=== PATIENT | female | born 1995 | race Caucasian/White ===

== ENCOUNTER 2024-12-09 09:43 | Outpatient (CLI) | payer OTHER, SELFPAY ==
--- OUTSIDE RECORDS SUMMARY | 2024-12-09 10:37 | XMS_ITS | Referral Summary ---
Author Organization [facility] Medical Office Building B Address [address] [place] [address] Care Team Providers Care Wheat Buyer Name Role Phone Unknown, Notinfile Primary Care Provider Unavail able Kasey Xiao MD Unavailable Allergies Active Allergy Reactions Criticality Noted Date Comments Erythromycin Unknown,Nausea only, Shortness of breath High 03/28/2017 Medications valACYclovir (VALTREX) 1 gram tablet 03/22/2023 Active desog-e.estradio L/e.estradioL (KARIVA) 0.15-0.02 mgx21 /0.01 mg x 5 per tablet Take 1 tablet by mouth daily 84 tablet 3 05/01/2023 Active Active Problems Problem Noted Date Diagnosed Date Cervical cancer screening 05/12/2023 Overview (05/12/2023): 05/01/23 - Pap negative Well woman exam with routine gynecological exam 05/01/2023 Assessment & Plan (05/01/2023 11:25 AM CDT): Pap smear performed. Recommend self-breast exam. A year long prescription for OCP was sent to her pharmacy. She declines any STD testing. Follow up 1 year. Chronic pain of left elbow 03/28/2017 Social History Tobacco Use Types Packs/Day Years Used Date Smoking Tobacco: Never Passive Smoke Exposure: Never Smokeless Tobacco: Never AUDIT-C Answer Date Recorded Q1: How often do you have a drink containing alc ohol? Monthly or less 05/01/2023 Q2: How many drinks containi ng alcohol do you have on a typical day when you are drinking? 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 Gender Identity Not on file Sexual Orientation Not on file Last Filed Vital Signs Vital Sign Reading Time Taken Comments Blood Pressure 96/62 05/01/2023 10:45 AM CDT Pulse 89 03/28/2017 2:06 PM CDT Temperature - - Respiratory Rate - - Oxygen Saturation - - Inhaled Oxygen Concentration - - Weight 67.1 kg (148 lb) 05/01/2023 10:45 AM CDT Height 167.6 cm (5' 6 ) 05/01/2023 10:45 AM CDT Body Mass Index 23.89 05/01/2023 10:45 AM CDT Plan of Treatment Not on file Procedures Procedure Name Priority Date/Time Associated Diagnosis Comments PAP WITH REFLEX TO HIGH RISK HPV Routine 05/01/2023 12:03 PM CDT Well woman exam with routine gynecological exam Special screening examination for human papillomavirus (HPV) Screening for malignant neoplasm of the cervix from Last 3 Months or Most Recently Relevant to Health Maintenance Results * Pap with reflex to High Risk HPV and Genotyping (Cytology Component) (05/01/2023 12:03 PM CDT) Thin prep (Pap test) 05/01/2023 12:03 PM CDT 05/04/2023 5:33 PM CDT Narrative PATHOLOGY [facility] - 05/10/2023 10:35 AM CDT [facility] results best viewed via link to PDF [address] [address] Tele: Michelle Terry MD - Packing Line Worker CYTOLOGY REPORT Note to Patients: This report may contain a detailed description of human tissue sent by a health care provider to the laboratory for pathologic evaluation. The content of this report is essential for diagnosis and may provide important critical findings. This information may be unfamiliar to patients to review without a medical professional present. It is advised that the patient review this report in the presence of a health care provider who can answer questions and explain the details. Patient Name: ROCIOELIZABETH Address: [address] [place] [address] Gender: F : 1995 (Age: 28) Service: Location: [facility] #: [id number] Patient Type: [facility] SPECIM[facility] Taken: 05/01/2023 Reported: 05/10/2023 Physician(s): Kasey Xiao M.D. FINAL DIAGNOSIS: SOURCE OF SPECIMEN - ThinPrep Pap w/ reflex HPV: STATEMENT OF ADEQUACY Source: Cervical/Endocervical - Satisfactory for interpretation - Endocervical /Transformation Zone component present - Case screened using computer assisted imaging technology GENERAL CATEGORIZATION: - Negative for intraepithelial lesion or malignancy INTERPRETATION: - Acute Inflammation jxm/05/10/2023 10:35NORA Connors (ASCP) Report Reviewed and Electronically Signed By NORA Connors (ASCP)Clerical Data Follow A; [id number] CLINICAL DIAGNOSIS AND HISTORY Last Menstrual Period: 04/12/2023 REPORT IMAGES AND/OR SCANNED DOCUMENTS ONLY VIEWABLE IN PDF FORMAT The Pap test is a screening test used to aid in the detection of cervical cancer and its precursors. It should not be the sole means by which malignant and premalignant lesions are diagnosed. Both false negative and false positive results may occur. It also has poor sensitivity for the detection of endometrial lesions and should not be used to evaluate suspected endometrial abnormalities. For these reasons it is most important to obtain Pap tests at regular intervals, as recommended by your physician or nurse practitioner. us Kasey Xiao MD LAB CYTOLOGY ORDERABLES Final Result PATHOLOGY [facility] Laboratory Receiving [address] [place], [place] [id number] from Last 3 Months or Most Recently Relevant to Health Maintenance Insurance [employer] [place] Address: [id number] [place] [address] [employer] [facility] [employer] Address: [facility] [address] [place] [address] Care Teams Wheat Buyer Relationship Specialty Start Date End Date Unknown, Notinfile PCP - General 03/24/17 Kasey Xiao MD [address] [place] [address] Consulting Physician Obstetrics and Gynecology 03/22/23
--- OUTSIDE RECORDS SUMMARY | 2024-12-09 10:37 | XMS_ITS | Clinical Summary ---
Author Organization [facility] Address [address] [place] [address] Care Team Providers Care Concrete Technician Name Role Phone Unavailable Primary Care Provider Unavailabl e Source Comments [facility] [employer],non-owned Affiliates and Associated Physician Practices is amultiple site organization consisting of ambulatory clinics and hospital sitesin [place], [place], [place] and [place]. This disclosure is being madepursuant to the Care Everywhere program and may not contain all information available regarding this patient. Last updated 18.[facility] Allergies Active Allergy Reactions Criticality Noted Date Comments Erythromycin Unknown 06/04/2021 Social History Tobacco Use Types Packs/Day Years Used Date Smoking Tobacco: Never Assessed Sex and Gender Information Value Date Recorded Sex Assigned at Not on file Gender Identity Not on file Sexual Orientation Not on file Plan of Treatment Health Maintenance Due Date Last Done Comments PAP SMEAR 1995 HIV SCREENING 2009 HEPATITIS C SCREENING 04/23/2012 DTAP/TDAP/TD VACCINES (1 - Tdap) 2013 HEPATITIS B VACCINE (1 of 3 - 19+ 3-dose series) 2013 COVID-19 VACCINE (2 - 2023- season) 2024 02/16/2021 INFLUENZA VACCINE (#1) 2024 , 05/27/2019, 06/27/2018, Additional history exists DEPRESSION SCREENING 09/11/2024 ZOSTER VACCINE (1 of 2) 2044 HIB VACCINE Aged Out No longer eligi ble based on patient's age to complete this topic HPV VACCINE Aged Out No longer eligi ble based on patient's age to complete this topic MENINGOCOCCAL (Group B) VACCINE SHARED DECISION-MAKING Aged Out No longer eligible based on patient's age to complete this topic MENINGOCOCCAL GROUPS A/C/Y/W VACCINE Aged Out No longer eligible based on patient's age to complete this topic PNEUMOCOCCAL VACCINE Aged Out No long er eligible based on patient's age to complete this topic
--- OUTSIDE RECORDS SUMMARY | 2024-12-09 10:37 | XMS_ITS | Clinical Summary ---
Author Organization [facility] Address [address] [place] [address] Phone Care Team Providers Care Calender Inspector Name Role Phone AlconElvin perez Primary Care Provider [phone] Allergies Active Allergy Reactions Criticality Noted Date Comments Erythromycin Nausea and Vomiting Low 03/28/2017 Medications valACYclovir (Valtrex) 1 gram tablet Take 1 Tablet (1,000 mg) by mouth 2 times daily. 30 Tablet 3 05/04/2022 Active Desogestrel-Ethi nyl estradiol (Viorele, 28,) 0.15-0.02 mgx21 /0.01 mg x 5 tablet TAKE 1 TABLET BY MOUTH DAILY 84 Tablet 03/22/2023 Active Active Problems Problem Noted Date Diagnosed Date ADD (attention deficit disorder) Genital herpes Immunizations Immunization Administration Dates Next Due Influenza Seasonal Unspecifi ed Formulation IM 06/02/2020,05/27/2019,06/27/2018 Family History Medical History Relation Name Comments Diabetes Father Hypertension Father Stroke Father Breast Cancer Mother Premenopausal Cancer Paternal Grandfather Lung Alzheimer's Disease Paternal Grandmother Parkinson's Disease Paternal Grandmother Healthy Sister Ovarian Cancer Neg Hx Relation Name Status Comments Father Alive Mother Alive Paternal Grandfather Paternal Grandmother Sister Alive Social History Tobacco Use Types Packs/Day Years Used Date Smoking Tobacco: Never Smokeless Tobacco: Never Tobacco Cessation:Counseling Given: Not Answered Alcohol Use Standard Drinks/Week Comments Yes 0 (1 standard drink = 0.6 oz pur e alcohol) rare Comments No Sex and Gender Information Value Date Recorded Sex Assigned at Not on file Legal Sex Female 1:19 PM RESEARCHER Gender Identity Not on file Sexual Orientation Not on file Last Filed Vital Signs Vital Sign Reading Time Taken Comments Blood Pressure 114/76 05/04/2022 9:22 AM CDT Pulse 101 01/21/2019 1:52 PM CDT Temperature 36.7 C (98.1 F) 01/21/2019 1:52 PM CDT Respiratory Rate 18 01/21/2019 1:52 PM CDT Oxygen Saturation 99% 01/21/2019 1:52 PM CDT Inhaled Oxygen Concentration - - Weight 66.2 kg (146 lb) 05/04/2022 9:22 AM CDT Height 167.6 cm (5' 6 ) 05/04/2022 9:22 AM CDT Body Mass Index 23.57 05/04/2022 9:22 AM CDT Plan of Treatment Health Maintenance Due Date Last Done Comments DTAP/TDAP/TD VACCINES (1 - Tdap) 2013 HEPATITIS B VACCINES (1 of 3 - 19+ 3-dose series) 2013 INFLUENZA VACCINE (#1) 2024 , 05/27/2019, 06/27/2018 HPV/Cotest (30-65) 2024 Preventative Visit- Commercial 09/11/2024 05/04/2022, 12/30/2020, 10/03/2019, Additional history exists CERVICAL CANCER SCREENING 05/04/2025 PAP SMEAR 05/04/2025 05/04/2022, 09/12, 09/27/2018 PAP SMEAR 05/04/2025 05/04/2022, 09/12, 09/27/2018 HPV VACCINES Completed 03/11/2011 (Prev iously completed), 11/09/2010 (Previously completed), 09/11/2010 (Previously completed) PNEUMOCOCCAL VACCINE 0-49 YEARS Aged Out No longer eligible based on patient's age to complete this topic Procedures Procedure Name Priority Date/Time Associated Diagnosis Comments CERV/VAG CYTO AGE BASED SCREEN PAP Routine 05/04/2022 1:01 PM CDT Well woman exam with routine gynecological exam from Last 3 Months or Most Recently Relevant to Health Maintenance Results * CERV/VAG CYTO AGE BASED SCREEN PAP (05/04/2022 1:01 PM CDT) COMMENT (PAP): Anaid Trending TasteSasha Oro Comment: This order for age-based cervical cancer and STI screening follows ACOG guidelines(PB 168, 140, ODD306). See individual assays for performing site location. CLINICAL INFORMATION Anaid Oro Comment:Information not prov ided LAST MENSTRUAL PERIOD Anaid Oro Comment:INFORMATION NOT PROV IDED PREV PAP: Anaid Oro Comment:INFORMATION NOT PROV IDED PREV BX: Anaid Oro Comment:INFORMATION NOT PROV IDED SOURCE Anaid Oro Comment:Endocervix ADEQUACY: Anaid Oro Comment: Satisfactory for evaluation. Endocervical/transformation zone component present. Age and/or menstrual status not provided PAP INTERP Anaid Oro Comment:Negative for intraep ithelial lesion or malignancy. COMMENT (PAP TEST) Q uest Bal Oro Comment: This Pap test has been evaluated with computer assisted technology. SOFTWARE QUALITY TESTER: Frederick Oro Comment: NORA CRESPO(ASCP) CT Screening location: [facility] Administration [place] [address] Bal Oro Comment: EXPLANATORY NOTE: The Pap is a screening test for cervical cancer. It is not a diagnostic test and is subject to false negative and false positive results. It is most reliable when a satisfactory sample, regularly obtained, is submitted with relevant clinical findings and history, and when the Pap result is evaluated along with historic and current clinical information. Test Performed at: [facility] [address] [address] [place] [address] Diana Gaston Genital SWAB OF ENDOCERVIX / Unknown 05/04/2022 1:01 PM CDT 05/04/2022 8:59 PM CDT July Jaffe DO PATHOLOGY/CYTOLOGY ORDERABLES Fi nal Result [facility] [phone] [facility] [place] [address] [address] [place] [address] from Last 3 Months or Most Recently Relevant to Health Maintenance Insurance [employer] OPEN CHOICE PPO BLUE ACCESS RX MEDIMPACT Member Subscriber Plan / Payer (Ef fective for All Dates) Name:Elizabeth Bond Relation to Subscriber:Self Name:Elizabeth Bond Payer ID:Not on file Group ID:[id number] Type:RX Commercial Address: [place] RX MEDIMPACT Member Subscriber Plan / Payer (Ef fective for All Dates) Name:Elizabeth Bond Relation to Subscriber:Self Name:Elizabeth Bond Payer ID:Not on file Group ID:[id number] Type:RX Commercial Address: [place] Care Teams Calender Inspector Relationship Specialty Start Date End Date Elvin Reyes DO [address] [facility] [address] [place] [address] PCP - General Internal Medicine 10/15/18
--- OUTSIDE RECORDS SUMMARY | 2024-12-09 10:37 | XMS_ITS | Clinical Summary ---
Author Organization [facility] Medical Office Building B Address [address] [place] [address] Care Team Providers Care Chemical Engineering Professor Name Role Phone Unknown, Notinfile Primary Care Provider Unavail able Kasey Xiao MD Unavailable [phone] Allergies Active Allergy Reactions Criticality Noted Date [...] year. 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 Gender Identity Not on file Sexual Orientation Not on file Obstetrics History Para Term AB IAB SAB Ectopic Multiple Livin g Live Births 0 0 0 0 0 0 0 0 0 0 0 Last Filed Vital Signs Vital Sign Reading [...] 05/01/2023 10:45 AM CDT Plan of Treatment Health Maintenance Due Date Last Done Comments Depression Screening 1995 Hepatitis C Screening 1995 DTaP/Tdap/Td Vaccine (1 - Tdap) 2005 Varicella Vaccines (1 of 2 - 13+ 2-dose series) 2007 Hepatitis B Screening 2012 Cervical Cancer Screening 05/01/2024 05/01/2023, Regular Well Visit/Exam 18-64 05/01/2024 05/01/2023 Covid-19 Vaccine (2 - season) 2024 02/16/2021 Influenza Vaccine (#1) 2024 2, 05/27/2021, 06/02/2020, Additional history exists HPV Vaccines Aged Out No longer eligi ble based on patient's age to complete this topic Pneumococcal vaccine <65 Aged Out No longer eligible based on [...] CDT 05/04/2023 5:33 PM CDT Narrative PATHOLOGY [facility] - 05/10/2023 10:35 AM CDT EPIC results best viewed via link to PDF [address] [address] Tele: Michelle Terry MD - Convenience Store Clerk CYTOLOGY REPORT Note to Patients: This report [...] questions and explain the details. Patient Name: ELIZABETH CHRIS Address: [address] [place] [address] Gender: F : 1995 (Age: 28) Service: Location: N : [id number] [facility] #: [id number] Patient Type: [facility] SPECIMEN Taken: 05/01/2023 Reported: 05/10/2023 Physician(s): Kasey [...] recommended by your physician or nurse practitioner. Kasey Xiao MD LAB CYTOLOGY ORDERABLES Final Result PATHOLOGY [facility] Laboratory Receiving [address] [place] [address] from Last 3 Months or Most Recently Relevant to Health Maintenance Insurance [facility] CIGNA Care Teams Chemical Engineering Professor Relationship Specialty Start Date End Date Unknown, Notinfile PCP - General 03/24/17 Kasey Xiao MD [address] [facility] [address] [place] [address] Consulting Physician Obstetrics and Gynecology 03/22/23
--- OUTSIDE RECORDS SUMMARY | 2024-12-09 10:37 | XMS_ITS | Encounter Summary ---
Author Organization [employer] Address [address] [place] [address] Care Team Providers Care Fisheries Manager Name Role Phone AlconElvin perez Primary Care Provider [phone] Encounter Details Date Type Department Care Team (Late st Contact Info) Description 11/17/2017 Lab Requisition [facility] [address] [facility] [address] [place] [address] [place] [address] [facility] [address] [place] [phone] Social History Tobacco Use Types Packs/Day Years Used Date Smoking Tobacco: Never Assessed Comments Unknown Sex and Gender Information Value Date Recorded Sex Assigned at Not on file Legal Sex Female 1:19 PM SUPERVISOR ORDER TAKERS Gender Identity Not on file Sexual Orientation Not on file documented as of this encounter Plan of Treatment Not on file documented as of this encounter Procedures Procedure Name Priority Date/Time Associated Diagnosis Comments HEPATITIS B SURFACE AB, QUANT Routine 11/17/2017 1:30 PM SUPERVISOR ORDER TAKERS VARICELLA ZOSTER IGG Routine 11/17/2017 1:30 PM SUPERVISOR ORDER TAKERS documented in this encounter Results * (ABNORMAL) HEPATITIS B SURFACE AB, QUANT (11/17/2017 1:30 PM SUPERVISOR ORDER TAKERS) HEPATITIS B SURF AB,QN <4.0 mlU/mL 11/17/2017 9:55 PM SUPERVISOR ORDER TAKERS [facility] HEPATITIS B SURFACE AB INTERP Non-reacti ve(A) See Interp 11/17/2017 9:55 PM SUPERVISOR ORDER TAKERS [facility] Blood Collection / Unknown 11/17/2017 1:30 PM SUPERVISOR ORDER TAKERS 11/17/2017 8:26 PM SUPERVISOR ORDER TAKERS Narrative [facility] - 11/17/2017 9:55 PM SUPERVISOR ORDER TAKERS Patient does not have immunity to Hepatitis B virus. This assay is used to determine immune status to Hepatitis B as greater than or equal to 10 mIU/mL as per CDC guidelines (MMWR:vol 55: RR-16, 2006). Jun Gloria MD CHEMISTRY ORDERABLES Final R esult [facility] CLIA# [id number] [address] [place] [address] * VARICELLA ZOSTER IGG (11/17/2017 1:30 PM SUPERVISOR ORDER TAKERS) VZV IGG Positive 11/21/2017 2:35 PM CDT [facility] Comment: Results suggest response to immunization or prior exposure to the virus. REFERENCE VALUE Vaccinated: Positive (>=1.1 AI) Unvaccinated: Negative (<=0.8 AI) VARICELLA IGG INDEX 2.4 11/21/2017 2:35 PM CDT [facility] Comment: Test Performed by: [facility] [address] [place] [address] Blood Collection / Unknown 11/17/2017 1:30 PM SUPERVISOR ORDER TAKERS 11/17/2017 8:26 PM SUPERVISOR ORDER TAKERS Jun Gloria MD CHEMISTRY ORDERABLES Final R esult [facility] documented in this encounter Visit Diagnoses Not on filedocumented in this encounter Care Teams Fisheries Manager Relationship Specialty Start Date End Date Elvin Reyes DO [address] [place] [address] [place], [place] [id number] PCP - General Internal Medicine 10/15/18 documented as of this encounter
[2024-12-09 10:46] LABS: Beta HCG Quantitative 5.95 mIU/ML
== END 2024-12-09 09:44 | disposition home or self-care (01) ==
LOC: ANHLAB 09:44
PROVIDERS: Visit Provider Obstetrics & Gynecology
DX: N92.6 Irregular menstruation, unspecified (principal)
CPT/HCPCS: 36415; 84702

== ENCOUNTER 2024-12-11 07:41 | Outpatient (CLI) | payer OTHER, SELFPAY ==
--- OUTSIDE RECORDS SUMMARY | 2024-12-11 07:45 | XMS_ITS | Clinical Summary ---
Author Organization [facility] Address [address] [place] [address] Phone Care Team Providers Care Slot Editor Name Role Phone AlconElvin perez Primary Care Provider [phone] Allergies Active Allergy Reactions Criticality Noted Date [...] on file Legal Sex Female 1:19 PM TANKAGE SUPERVISOR Gender Identity Not on file Sexual Orientation [...] (05/04/2022 1:01 PM CDT) COMMENT (PAP): Anaid TrunkbowSasha Oro Comment: This order for age-based cervical cancer and STI screening follows ACOG guidelines(PB 168, 140, MIS222). See individual assays for performing site location. [...] has been evaluated with computer assisted technology. POWER DISTRIBUTION ENGINEER: Frederick Oro Comment: NORA CRESPO(ASCP) CT Screening location: [facility] Administration [place] [address] [address] Bal Oro Comment: [...] and current clinical information. Test Performed at: [facility] [address] [address] [place] [address] Diana Gaston Genital SWAB OF ENDOCERVIX / Unknown 05/04/2022 1:01 PM CDT 05/04/2022 8:59 PM CDT July Jaffe DO PATHOLOGY/CYTOLOGY ORDERABLES Fi nal Result [facility] [phone] [facility] [address] [address] [place] [address] from Last 3 Months or Most Recently [...] Type:RX Commercial Address: [place] Care Teams Slot Editor Relationship Specialty Start Date End Date Elvin Reyes DO [address] [facility] [address] [place] [address] PCP - General Internal Medicine 10/15/18
--- OUTSIDE RECORDS SUMMARY | 2024-12-11 07:45 | XMS_ITS | Clinical Summary ---
Author Organization [facility] Address [address] [place] [address] Care Team Providers Care Manual Arts Therapy Teacher Name Role Phone Unavailable Primary Care Provider Unavailabl e Source Comments [facility],non-owned Affiliates and Associated Physician Practices is amultiple site organization consisting of ambulatory clinics and hospital sitesin [place], [place], [place] and [place]. This disclosure is being madepursuant to the Care Everywhere program and may not contain all information available regarding this patient. Last updated 18.[facility] Allergies Active Allergy Reactions Criticality Noted Date [...]
--- OUTSIDE RECORDS SUMMARY | 2024-12-11 07:45 | XMS_ITS | Referral Summary ---
Author Organization [facility] Medical Office Building B Address [address] [place] [address] Care Team Providers Care Assistant Media Buyer Name Role Phone Unknown, Notinfile Primary Care Provider Unavail able Kasey Xiao MD Unavailable [phone] Allergies Active Allergy Reactions Criticality Noted [...] on file Legal Sex Female 9:[address] MECHANICAL ENGINEER Gender Identity Not on file Sexual Orientation [...] CDT 05/04/2023 5:33 PM CDT Narrative PATHOLOGY [facility] - 05/10/2023 10:35 AM CDT [facility] results best viewed via link to PDF [address] [address] Tele: Michelle Terry MD - Payment Analyst CYTOLOGY REPORT Note to Patients: This report [...] explain the details. Patient Name: ROCIOELIZABETH Address: [address] [place] [address] Gender: F : 1995 (Age: 28) Service: Location: [facility] #: [id number] Patient Type: [facility] SPECIMEN Taken: 05/01/2023 Reported: 05/10/2023 Physician(s): Kasey [...] MD LAB CYTOLOGY ORDERABLES Final Result PATHOLOGY [facility] Laboratory Receiving [address] [place], [place] [phone] from Last 3 Months or Most Recently Relevant to Health Maintenance Insurance [employer] Address: [address] [place] [address] [employer] Care Teams Assistant Media Buyer Relationship Specialty Start Date End Date Unknown, Notinfile PCP - General 03/24/17 Kasey Xiao MD [address] [place] [address] Consulting Physician Obstetrics and Gynecology 03/22/23
--- OUTSIDE RECORDS SUMMARY | 2024-12-11 07:45 | XMS_ITS | Encounter Summary ---
Author Organization [employer] Address [address] [place] [address] Care Team Providers Care Double Bottom Driver Name Role Phone AlconElvin perez Primary Care Provider [phone] Encounter Details Date Type Department Care Team (Late st Contact Info) Description 11/17/2017 Lab Requisition [facility] Laboratory Services S [facility] [address] [place] [address] [place] [address] [facility] [address] [place] [phone] Social History Tobacco Use Types Packs/Day Years Used Date Smoking Tobacco: Never Assessed Comments Unknown Sex and Gender Information Value Date Recorded Sex Assigned at Not on file Legal Sex Female 1:19 PM MEDIA REPORTER Gender Identity Not on file Sexual Orientation Not on file documented as of this encounter Plan of Treatment Not on file documented as of this encounter Procedures Procedure Name Priority Date/Time Associated Diagnosis Comments HEPATITIS B SURFACE AB, QUANT Routine 11/17/2017 1:30 PM MEDIA REPORTER VARICELLA ZOSTER IGG Routine 11/17/2017 1:30 PM MEDIA REPORTER documented in this encounter Results * (ABNORMAL) HEPATITIS B SURFACE AB, QUANT (11/17/2017 1:30 PM MEDIA REPORTER) HEPATITIS B SURF AB,QN <4.0 mlU/mL 11/17/2017 9:55 PM MEDIA REPORTER [facility] [employer] [facility] HEPATITIS B SURFACE AB INTERP Non-reacti ve(A) See Interp 11/17/2017 9:55 PM MEDIA REPORTER [facility] Blood Collection / Unknown 11/17/2017 1:30 PM MEDIA REPORTER 11/17/2017 8:26 PM MEDIA REPORTER Narrative [facility] - 11/17/2017 9:55 PM MEDIA REPORTER Patient does not have immunity to Hepatitis B virus. This assay is used to determine immune status to Hepatitis B as greater than or equal to 10 mIU/mL as per CDC guidelines (MMWR:vol 55: RR-16, 2006). Jun Gloria MD CHEMISTRY ORDERABLES Final R esult [facility] CLIA# [id number] [address] [place] [address] * VARICELLA ZOSTER IGG (11/17/2017 1:30 PM MEDIA REPORTER) VZV IGG Positive 11/21/2017 2:35 PM CDT [facility] Comment: Results suggest response to immunization or prior exposure to the virus. REFERENCE VALUE Vaccinated: Positive (>=1.1 AI) Unvaccinated: Negative (<=0.8 AI) VARICELLA IGG INDEX 2.4 11/21/2017 2:35 PM CDT [facility] Comment: Test Performed by: [facility] [address] [place] [address] Blood Collection / Unknown 11/17/2017 1:30 PM MEDIA REPORTER 11/17/2017 8:26 PM MEDIA REPORTER Jun Gloria MD CHEMISTRY ORDERABLES Final R esult [facility] documented in this encounter Visit Diagnoses Not on filedocumented in this encounter Care Teams Double Bottom Driver Relationship Specialty Start Date End Date Elvin Reyes DO [address] [place], [place] [phone] PCP - General Internal Medicine 10/15/18 documented as of this encounter
--- OUTSIDE RECORDS SUMMARY | 2024-12-11 07:45 | XMS_ITS | Clinical Summary ---
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 Patient Name: ELIZABETH CHRIS Address: [address] [place] [address] Gender: F : 1995 (Age: 28) Service: Location: N : [id number] [facility] #: [id number] Patient Type: [facility] Taken: 05/01/2023 Reported: 05/10/2023 Physician(s): Kasey [...] MD LAB CYTOLOGY ORDERABLES Final Result PATHOLOGY [facility] Laboratory Receiving [address] [place] [address] from Last 3 Months or Most Recently Relevant to Health Maintenance Insurance [facility] [employer] HE[employer] PLANS Address: [facility] [address] [place] [address] [employer] [facility] Address: [facility] [address] [place] [address] Care Teams Internal Carver Relationship Specialty Start Date End Date Unknown, Notinfile PCP - General 03/24/17 Kasey Xiao MD [address] [facility] [address] [place] [address] Consulting Physician Obstetrics and Gynecology 03/22/23
[2024-12-11 08:36] LABS: Beta HCG Quantitative < 2.39 mIU/ML
== END 2024-12-11 07:42 | disposition home or self-care (01) ==
LOC: ANHLAB 07:42
PROVIDERS: Visit Provider Obstetrics & Gynecology
DX: N94.89 Other specified conditions associated with female genital organs and menstrual cycle (principal)
CPT/HCPCS: 36415; 84702

== ENCOUNTER 2025-02-06 07:39 | Outpatient (CLI) | payer OTHER, SELFPAY ==
--- OUTSIDE RECORDS SUMMARY | 2025-02-06 07:42 | XMS_ITS | Referral Summary ---
Author Organization [facility] Medical Office Building B Address [address] [place] [address] Care Team Providers Care Operations Accountant Name Role Phone Unknown, Notinfile Primary Care [...] on file Legal Sex Female 9:08 AM AUDIT DIRECTOR Gender Identity Not on file Sexual Orientation Not on file Last Filed Vital Signs Vital Sign Reading Time Taken Comments Blood Pressure 96/62 05/01/2023 10:45 AM CDT Pulse 89 03/28/2017 2:06 PM CDT Temperature - - Respiratory Rate - - Oxygen Saturation - - Inhaled Oxygen Concentration - - Weight 67.1 kg (148 lb) 05/01/2023 10:45 AM CDT Height 167.6 cm (5' 6) 05/01/2023 10:45 AM CDT Body Mass Index [...] CDT 05/04/2023 5:33 PM CDT Narrative PATHOLOGY [facility] - 05/10/2023 10:35 AM CDT [facility] results best viewed via link to PDF [address] [address] Tele: Michelle Terry MD - Claims Adjudicator CYTOLOGY REPORT Note to Patients: This report [...] explain the details. Patient Name: ROCIOELIZABETH Address: [address] [place] [address] Gender: F : 1995 (Age: 28) Service: Location: [facility] #: [id number] Patient Type: [facility] SPECIMEN Taken: 05/01/2023 Reported: 05/10/2023 Physician(s): Kasey [...] MD LAB CYTOLOGY ORDERABLES Final Result PATHOLOGY [facility] Laboratory Receiving [address] [place], [place] [phone] from Last 3 Months or Most Recently Relevant to Health Maintenance Insurance [employer] [facility] [employer] [employer] [place] Address: [address] [place] [address] [facility] [employer] PL[employer] Address: [facility] [address] [place] [address] Care Teams Operations Accountant Relationship Specialty Start Date End Date Unknown, Notinfile PCP - General 03/24/17 Kasey Xiao MD [address] [place] [address] Consulting Physician Obstetrics and Gynecology 03/22/23
--- OUTSIDE RECORDS SUMMARY | 2025-02-06 07:42 | XMS_ITS | Clinical Summary ---
Author Organization [facility] Medical Office Building B Address [address] [place] [address] Care Team Providers Care Restaurant Attendant Name Role Phone Unknown, Notinfile Primary Care Provider Unavail able Kasey Xiao MD Unavailable [phone] Allergies Active Allergy Reactions Criticality Noted [...] ADENOIDECTOMY Medical History Medical History Date Comments [place] teeth extracted 2010 Family History Medical History [...] on file Legal Sex Female 9:08 AM CONSULTING SERVICES ASSOCIATE Gender Identity Not on file Sexual Orientation [...] CDT 05/04/2023 5:33 PM CDT Narrative PATHOLOGY [facility] - 05/10/2023 10:35 AM CDT EPIC results best viewed via link to PDF [address] [address] Tele: Michelle Terry MD - Group Billing Coordinator CYTOLOGY REPORT Note to Patients: This report [...] the details. Patient Name: ELIZABETH CHRIS Address: [address] [place] [address] Gender: F : 1995 (Age: 28) Service: Location: N : [id number] [facility] #: [id number] Patient Type: [facility] [place] Taken: 05/01/2023 Reported: 05/10/2023 Physician(s): Kasey [...] MD LAB CYTOLOGY ORDERABLES Final Result PATHOLOGY [facility] Laboratory Receiving [address] [place] [address] from Last 3 Months or Most Recently Relevant to Health Maintenance Insurance [facility] EMPL[employer]EE HEALTH PLANS Address[facility] [address] [place] [address] [employer] [facility] [employer] Address: [facility] [address] [place] [address] Care Teams Restaurant Attendant Relationship Specialty Start Date End Date Unknown, Notinfile PCP - General 03/24/17 Kasey Xiao MD [address] [facility] [address] [place] [address] Consulting Physician Obstetrics and Gynecology 03/22/23
--- OUTSIDE RECORDS SUMMARY | 2025-02-06 07:42 | XMS_ITS | Encounter Summary ---
Author Organization [employer] Address [address] [place] [address] Care Team Providers Care All Terrain Vehicle Racer Name Role Phone AlconElvin perez Primary Care Provider [phone] Encounter Details Date Type Department Care Team (Late st Contact Info) Description 11/17/2017 Lab Requisition [facility] Laboratory Services S [facility] [address] [place] [address] [place] [address] [facility] [address] [place] [address] Social History Tobacco Use Types Packs/Day Years Used Date Smoking Tobacco: Never Assessed Comments Unknown Sex and Gender Information Value Date Recorded Sex Assigned at Not on file Legal Sex Female 1:19 PM PANAMA HAT BLOCKER Gender Identity Not on file Sexual Orientation Not on file documented as of this encounter Plan of Treatment Not on file documented as of this encounter Procedures Procedure Name Priority Date/Time Associated Diagnosis Comments HEPATITIS B SURFACE AB, QUANT Routine 11/17/2017 1:30 PM PANAMA HAT BLOCKER VARICELLA ZOSTER IGG Routine 11/17/2017 1:30 PM PANAMA HAT BLOCKER documented in this encounter Results * (ABNORMAL) HEPATITIS B SURFACE AB, QUANT (11/17/2017 1:30 PM PANAMA HAT BLOCKER) HEPATITIS B SURF AB,QN <4.0 mlU/mL 11/17/2017 9:55 PM PANAMA HAT BLOCKER [facility] [employer] [facility] HEPATITIS B SURFACE AB INTERP Non-reacti ve(A) See Interp 11/17/2017 9:55 PM PANAMA HAT BLOCKER [facility] Blood Collection / Unknown 11/17/2017 1:30 PM PANAMA HAT BLOCKER 11/17/2017 8:26 PM PANAMA HAT BLOCKER Narrative [facility] - 11/17/2017 9:55 PM PANAMA HAT BLOCKER Patient does not have immunity to Hepatitis B virus. This assay is used to determine immune status to Hepatitis B as greater than or equal to 10 mIU/mL as per CDC guidelines (MMWR:vol 55: RR-16, 2006). Jun Gloria MD CHEMISTRY ORDERABLES Final R esult [facility] CLIA# [id number] [address] [place] [address] * VARICELLA ZOSTER IGG (11/17/2017 1:30 PM PANAMA HAT BLOCKER) VZV IGG Positive 11/21/2017 2:35 PM CDT [facility] Comment: Results suggest response to immunization or prior exposure to the virus. REFERENCE VALUE Vaccinated: Positive (>=1.1 AI) Unvaccinated: Negative (<=0.8 AI) VARICELLA IGG INDEX 2.4 11/21/2017 2:35 PM CDT [facility] Comment: Test Performed by: [facility] [address] [place] [address] Blood Collection / Unknown 11/17/2017 1:30 PM PANAMA HAT BLOCKER 11/17/2017 8:26 PM PANAMA HAT BLOCKER Jun Gloria MD CHEMISTRY ORDERABLES Final R esult [facility] documented in this encounter Visit Diagnoses Not on filedocumented in this encounter Care Teams All Terrain Vehicle Racer Relationship Specialty Start Date End Date Elvin Reyes DO [address] [place] [address] [place], [place] [phone] PCP - General Internal Medicine 10/15/18 documented as of this encounter
--- OUTSIDE RECORDS SUMMARY | 2025-02-06 07:42 | XMS_ITS | Clinical Summary ---
Author Organization [facility] [employer] Address [address] [place] [address] Care Team Providers Care Supervisor Slate Splitting Name Role Phone Unavailable Primary Care Provider Unavailabl e Source Comments [facility] [employer],non-owned Affiliates and Associated Physician Practices is amultiple site organization consisting of ambulatory clinics and hospital sitesin [place], [place], [place] and [place]. This disclosure is being madepursuant to the Care Everywhere program and may not contain all information available regarding this patient. Last updated 18.[facility] [employer] Allergies Active Allergy Reactions Criticality Noted Date Comments Erythromycin Unknown 06/04/2021 Social History Tobacco Use Types Packs/Day Years Used Date Smoking Tobacco: Never Assessed Comments Unknown Sex and Gender Information Value Date Recorded Sex Assigned at Not on file Legal Sex Female 8:58 AM CDT Gender Identity Not on file Sexual Orientation Not on file Plan of Treatment Health Maintenance Due Date Last Done Comments HIV SCREENING 2009 HEPATITIS C SCREENING 04/23/2012 DTAP/TDAP/TD VACCINES (1 - Tdap) 2013 HEPATITIS B VACCINE (1 of 3 - 19+ 3-dose series) 2013 COVID-19 VACCINE (2 - 2023- season) 2024 02/16/2021 DEPRESSION SCREENING 09/11/2024 INFLUENZA VACCINE (Season Ended) 2025 05/27/2021, 05/27/2019, 06/27/2018, Additional history exists ZOSTER VACCINE (1 of 2) 2044 HIB [...] on patient's age to complete this topic Insurance [facility] Address: [facility] [id number] [place] [address]
--- OUTSIDE RECORDS SUMMARY | 2025-02-06 07:42 | XMS_ITS | Clinical Summary ---
Author Organization [facility] Address [address] [place] [address] Phone Care Team Providers Care Curriculum Developer Name Role Phone AlconElvin perez Primary Care Provider [phone] Allergies Active Allergy Reactions Criticality Noted Date [...] on file Legal Sex Female 1:19 PM FENCE LABORER Gender Identity Not on file Sexual Orientation [...] 9:22 AM CDT Height 167.6 cm (5' 6) 05/04/2022 9:22 AM CDT Body Mass Index 23.57 05/04/2022 9:22 AM CDT Plan of Treatment Health Maintenance Due Date Last Done Comments DTAP/TDAP/TD VACCINES (1 - Tdap) 2013 HEPATITIS B VACCINES (1 of 3 - 19+ 3-dose series) 2013 HPV/Cotest (21-29) 2015 INFLUENZA VACCINE (#1) 2024 0, 05/27/2019, 06/27/2018 HPV/Cotest (30-65) 2024 Preventative Visit- Commercial 09/11/2024 0 05/04/2022, 12/30/2020, 10/03/2019, Additional history exists CERVICAL CANCER SCREENING 05/04/2025 PAP SMEAR 05/04/2025 05/04/2022, 09/12, 09/27/2018 HPV VACCINES Completed 03/11/2011 (Prev iously completed), 11/09/2010 (Previously completed), 09/11/2010 (Previously completed) Procedures Procedure Name Priority Date/Time Associated Diagnosis Comments CERV/VAG CYTO AGE BASED SCREEN PAP Routine 05/04/2022 1:01 PM CDT Well woman exam with routine gynecological exam from Last 3 Months or Most Recently Relevant to Health Maintenance Results * CERV/VAG CYTO AGE BASED SCREEN PAP (05/04/2022 1:01 PM CDT) COMMENT (PAP): [employer]asha Oro Comment: This order for age-based cervical cancer and STI screening follows ACOG guidelines(PB 168, 140, LTC334). See individual assays for performing site location. [...] has been evaluated with computer assisted technology. CHILDREN'S ENTERTAINER: Frederick Oro Comment: [place], CT(ASCP) CT Screening location: [facility] Administration [place] [address] [address] [facility] Comment: [...] and current clinical information. Test Performed at: [place] [address] [address] [place] [address] Lauryn-Radha Thi Vo Genital SWAB OF ENDOCERVIX / Unknown 05/04/2022 1:01 PM CDT 05/04/2022 8:59 PM CDT us July Jaffe DO PATHOLOGY/CYTOLOGY ORDERABLES Fi nal Result [facility] [phone] [place] [address] [address] [place] [address] from Last 3 Months or Most Recently Relevant to Health Maintenance Insurance [employer] OPEN CHOICE PPO BLUE ACCESS RX MEDIMPACT Member Subscriber Plan / Payer (Ef fective for All Dates) Name:Elizabeth Bond Relation to Subscriber:Self Name:Elizabeth Bond Payer ID:Not on file Group ID:[id number] Type:RX Commercial Address: [place] RX MEDIMPACT Member Subscriber Plan / Payer (Ef fective for All Dates) Name:DerekCyndi limatheresa Rae Relation to Subscriber:Self Name:Elizabteh Bond Payer ID:Not on file Group ID:[id number] Type:RX Commercial Address: [place] Care Teams Curriculum Developer Relationship Specialty Start Date End Date Elvin Reyes DO [address] [facility] [address] [place] [phone] PCP - General Internal Medicine 10/15/18
[2025-02-06 09:55] LABS: Beta HCG Quantitative 8.21 mIU/ML
== END 2025-02-06 07:40 | disposition home or self-care (01) ==
LOC: ANHLAB 07:40
PROVIDERS: Visit Provider Obstetrics & Gynecology
DX: N91.2 Amenorrhea, unspecified (principal)
CPT/HCPCS: 36415; 84702

== ENCOUNTER 2025-02-10 06:59 | Outpatient (CLI) | payer OTHER, SELFPAY ==
--- OUTSIDE RECORDS SUMMARY | 2025-02-10 07:01 | XMS_ITS | Referral Summary ---
Author Organization [facility] Medical Office Building B Address [address] [place] [address] Care Team Providers Care Instrument Mechanics Supervisor Name Role Phone Unknown, Notinfile Primary Care Provider Unavail able Kasey Xiao MD Unavailable [phone] Allergies Active Allergy Reactions Criticality Noted [...] on file Legal Sex Female 9:08 AM INSTANT POWDER SUPERVISOR Gender Identity Not on file Sexual [...] CDT 05/04/2023 5:33 PM CDT Narrative PATHOLOGY [facility] - 05/10/2023 10:35 AM CDT [facility] results best viewed via link to PDF [address] [address] Tele: Michelle Terry MD - Project Consultant CYTOLOGY REPORT Note to Patients: This report [...] explain the details. Patient Name: ROCIOELIZABETH Address: [address] [place] [address] Gender: F : 1995 (Age: 28) Service: Location: [facility] #: [id number] Patient Type: [facility] SPECIMEN Taken: 05/01/2023 Reported: 05/10/2023 Physician(s): Kasey [...] MD LAB CYTOLOGY ORDERABLES Final Result PATHOLOGY [facility] Laboratory Receiving [address] [place], [place] [phone] from Last 3 Months or Most Recently Relevant to Health Maintenance Insurance [employer] [facility] EM[employer] Address: [id number] [place] [address] [facility] [employer] Address: [facility] [address] [place] [address] Care Teams Instrument Mechanics Supervisor Relationship Specialty Start Date End Date Unknown, Notinfile PCP - General 03/24/17 Kasey Xiao MD [address] [place] [address] Consulting Physician Obstetrics and Gynecology 03/22/23
--- OUTSIDE RECORDS SUMMARY | 2025-02-10 07:01 | XMS_ITS | Encounter Summary ---
Author Organization [employer] Address [address] [place] [address] Care Team Providers Care Pre Parole Counseling Aide Name Role Phone AlconElvin perez Primary Care Provider [phone] Encounter Details Date Type Department Care Team (Late st Contact Info) Description 11/17/2017 Lab Requisition [facility] Laboratory Services S [facility] [address] [place] [address] [place] [address] [facility] [address] [place] [phone] Social History Tobacco Use Types Packs/Day Years Used Date Smoking Tobacco: Never Assessed Comments Unknown Sex and Gender Information Value Date Recorded Sex Assigned at Not on file Legal Sex Female 1:19 PM TRACK LABORER Gender Identity Not on file Sexual Orientation Not on file documented as of this encounter Plan of Treatment Not on file documented as of this encounter Procedures Procedure Name Priority Date/Time Associated Diagnosis Comments HEPATITIS B SURFACE AB, QUANT Routine 11/17/2017 1:30 PM TRACK LABORER VARICELLA ZOSTER IGG Routine 11/17/2017 1:30 PM TRACK LABORER documented in this encounter Results * (ABNORMAL) HEPATITIS B SURFACE AB, QUANT (11/17/2017 1:30 PM TRACK LABORER) HEPATITIS B SURF AB,QN <4.0 mlU/mL 11/17/2017 9:55 PM TRACK LABORER [facility] [employer] [facility] HEPATITIS B SURFACE AB INTERP Non-reacti ve(A) See Interp 11/17/2017 9:[address] [facility] Blood Collection / Unknown 11/17/2017 1:30 PM TRACK LABORER 11/17/2017 8:26 [address] [facility] - 11/17/2017 9:55 PM TRACK LABORER Patient does not have immunity to Hepatitis B virus. This assay is used to determine immune status to Hepatitis B as greater than or equal to 10 mIU/mL as per CDC guidelines (MMWR:vol 55: RR-16, 2006). Jun Gloria MD CHEMISTRY ORDERABLES Final R esult [facility] CLIA# [id number] [address] [place] [address] * VARICELLA ZOSTER IGG (11/17/2017 1:30 PM TRACK LABORER) VZV IGG Positive 11/21/2017 2:35 PM CDT [facility] Comment: Results suggest response to immunization or prior exposure to the virus. REFERENCE VALUE Vaccinated: Positive (>=1.1 AI) Unvaccinated: Negative (<=0.8 AI) VARICELLA IGG INDEX 2.4 11/21/2017 2:35 PM CDT [facility] Comment: Test Performed by: [facility] [address] [place] [address] Blood Collection / Unknown 11/17/2017 1:30 PM TRACK LABORER 11/17/2017 8:26 PM TRACK LABORER Jun Gloria MD CHEMISTRY ORDERABLES Final R esult [facility] documented in this encounter Visit Diagnoses Not on filedocumented in this encounter Care Teams Pre Parole Counseling Aide Relationship Specialty Start Date End Date Elvin Reyes DO [address] [place], [place] [phone] PCP - General Internal Medicine 10/15/18 documented as of this encounter
--- OUTSIDE RECORDS SUMMARY | 2025-02-10 07:01 | XMS_ITS | Clinical Summary ---
Author Organization [facility] Address [address] [place] [address] Phone Care Team Providers Care Stars Coordinator Name Role Phone AlconElvin perez Primary Care Provider [phone] Allergies Active Allergy Reactions Criticality Noted Date [...] on file Legal Sex Female 1:19 PM LIFE SUPPORT TECHNICIAN Gender Identity Not on file Sexual Orientation [...] PAP (05/04/2022 1:01 PM CDT) COMMENT (PAP): [employer] O[employer] Comment: This order for age-based cervical cancer and STI screening follows ACOG guidelines(PB 168, 140, WBJ426). See individual assays for performing site location. [...] has been evaluated with computer assisted technology. JEWEL GAUGER: Frederick Oro Comment: [place], CT(ASCP) CT [facility] [place] [address] [address] [facility] Comment: [...] and current clinical information. Test Performed at: [place] [address] [address] [place] [address] Lauryn-Radha Thi Vo Genital SWAB OF ENDOCERVIX / Unknown 05/04/2022 1:01 PM CDT 05/04/2022 8:59 PM CDT us July Jaffe DO PATHOLOGY/CYTOLOGY ORDERABLES Fi nal Result [facility] [phone] [place] [address] [address] [place] [phone] from Last 3 Months or Most Recently [...] Dates) Name:DerekCyndi limatheresa Rae Relation to Subscriber:Self Name:Elizabeth Bond Payer ID:Not on file Group ID:[id number] Type:RX Commercial Address: [place] Care Teams Stars Coordinator Relationship Specialty Start Date End Date Elvin Reyes DO [address] [facility] [address] [place] [phone] PCP - General Internal Medicine 10/15/18
--- OUTSIDE RECORDS SUMMARY | 2025-02-10 07:01 | XMS_ITS | Clinical Summary ---
Author Organization [facility] Address [address] [place] [address] Care Team Providers Care Lehr Attendant Name Role Phone Unavailable Primary Care Provider Unavailabl e Source Comments [facility],non-owned Affiliates and Associated Physician Practices is amultiple site organization consisting of ambulatory clinics and hospital sitesin [place], [place], [place] and [place]. This disclosure is being madepursuant to the Care Everywhere program and may not contain all information available regarding this patient. Last updated 18.[facility] Allergies Active Allergy Reactions Criticality Noted Date [...]
--- OUTSIDE RECORDS SUMMARY | 2025-02-10 07:01 | XMS_ITS | Clinical Summary ---
Author Organization [facility] Medical Office Building B Address [address] [place] [address] Care Team Providers Care Tire Technician Name Role Phone Unknown, Notinfile Primary Care Provider Unavail able Kasey Xiao MD Unavailable [phone] Allergies Active Allergy Reactions Criticality Noted [...] ADENOIDECTOMY Medical History Medical History Date Comments Jelm teeth extracted 2010 Family History Medical History [...] on file Legal Sex Female 9:08 AM COMMUNITY MARKETING COORDINATOR Gender Identity Not on file Sexual Orientation [...] results best viewed via link to PDF [address] [address] Tele: Michelle Terry MD - Director Of Supply Chain CYTOLOGY REPORT Note to Patients: This report [...] the details. Patient Name: ELIZABETH CHRIS Address: [address] [place] [address] Gender: F : 1995 (Age: 28) Service: Location: N : [id number] [facility] #: [id number] Patient Type: [facility] SPECIMEN Taken: 05/01/2023 Reported: 05/10/2023 Physician(s): Kasey [...] HOSPITAL Laboratory Receiving [address] [place] [address] from Last 3 Months or Most Recently Relevant to Health Maintenance Insurance [facility] [employer] Care Teams Tire Technician Relationship Specialty Start Date End Date Unknown, Notinfile PCP - General 03/24/17 Kasey Xiao MD [address] [facility] [address] [place] [address] Consulting Physician Obstetrics and Gynecology 03/22/23
[2025-02-10 08:17] LABS: Beta HCG Quantitative < 2.39 mIU/ML
== END 2025-02-10 07:00 | disposition home or self-care (01) ==
LOC: ANHLAB 06:59
PROVIDERS: Visit Provider Obstetrics & Gynecology
DX: N91.2 Amenorrhea, unspecified (principal)
CPT/HCPCS: 36415; 84702

== ENCOUNTER 2025-02-24 07:13 | Outpatient (CLI) | payer OTHER, SELFPAY ==
--- NOTE | ~2025-02-24 | XR_ITS ---
EXAMINATION: XR hysterosalpingogram DATE: 02/24/2025 12:38 INDICATION: Irregular menstruation. TECHNIQUE: Multiple fluoroscopic images were obtained during contrast infusion into the endometrial c anal of the uterus by the primary physician. A total of 7 fluoroscopic images were recorded. Fluorosc opy exposure time was 0.8 minutes. Total DAP was 4.429 Gycm^2. FINDINGS: The left and right uterine horns appear enlarged relative to the uterine body and with widening betwe en the uterine horns suggestive of a bicornuate uterus. No mucosal irregularities or abnormal filling defects within the uterine cavity. The fallopian tubes are normal in caliber and patent bilaterally. There is normal spillage of contrast into the peritoneum on both sides. IMPRESSION: 1. Possible bicornuate uterus. Otherwise normal hysterosalpingogram with patent bilateral fallopian t ubes. Reviewed, dictated and finalized at location A. IMPRESSION: 1. Possible bicornuate uterus. Otherwise normal hysterosalpingogram with patent bilateral fallopian tubes.
--- OUTSIDE RECORDS SUMMARY | 2025-02-24 07:16 | XMS_ITS | Clinical Summary ---
Author Organization [facility] Address [address] [place] [address] Care Team Providers Care Automobile Wrecker Name Role Phone Unavailable Primary Care Provider Unavailabl e Source Comments [facility],non-owned Affiliates and Associated Physician Practices is amultiple site organization consisting of ambulatory clinics and hospital sitesin [place], [place], [place] and [place]. This disclosure is being madepursuant to the Care Everywhere program and may not contain all information available regarding this patient. Last updated 18.[facility] Allergies Active Allergy Reactions Criticality Noted Date [...]
--- OUTSIDE RECORDS SUMMARY | 2025-02-24 07:16 | XMS_ITS | Encounter Summary ---
Author Organization [facility] Address [address] [place] [address] Care Team Providers Care Benzene Worker Name Role Phone AlconElvin perez Primary Care Provider [phone] Encounter Details Date Type Department Care Team (Late st Contact Info) Description 11/17/2017 Lab Requisition [facility] [address] [place] [address] [place] [address] [facility] [address] [place] [id number] Social History Tobacco Use Types Packs/Day Years Used Date Smoking Tobacco: Never Assessed Comments Unknown Sex and Gender Information Value Date Recorded Sex Assigned at Not on file Legal Sex Female 1:19 PM DRUG SAFETY SPECIALIST Gender Identity Not on file Sexual Orientation Not on file documented as of this encounter Plan of Treatment Not on file documented as of this encounter Procedures Procedure Name Priority Date/Time Associated Diagnosis Comments HEPATITIS B SURFACE AB, QUANT Routine 11/17/2017 1:30 PM DRUG SAFETY SPECIALIST VARICELLA ZOSTER IGG Routine 11/17/2017 1:30 PM DRUG SAFETY SPECIALIST documented in this encounter Results * (ABNORMAL) HEPATITIS B SURFACE AB, QUANT (11/17/2017 1:30 PM DRUG SAFETY SPECIALIST) HEPATITIS B SURF AB,QN <4.0 mlU/mL 11/17/2017 9:55 PM DRUG SAFETY SPECIALIST [facility] HEPATITIS B SURFACE AB INTERP Non-reacti ve(A) See Interp 11/17/2017 9:55 PM DRUG SAFETY SPECIALIST [facility] Blood Collection / Unknown 11/17/2017 1:30 PM DRUG SAFETY SPECIALIST 11/17/2017 8:26 PM DRUG SAFETY SPECIALIST Narrative [facility] - 11/17/2017 9:55 PM DRUG SAFETY SPECIALIST Patient does not have immunity to Hepatitis B virus. This assay is used to determine immune status to Hepatitis B as greater than or equal to 10 mIU/mL as per CDC guidelines (MMWR:vol 55: RR-16, 2006). Jun Gloria MD CHEMISTRY ORDERABLES Final R esult [facility] CLIA# [id number] [address] [place] [address] * VARICELLA ZOSTER IGG (11/17/2017 1:30 PM DRUG SAFETY SPECIALIST) VZV IGG Positive 11/21/2017 2:35 PM CDT [facility] Comment: Results suggest response to immunization or prior exposure to the virus. REFERENCE VALUE Vaccinated: Positive (>=1.1 AI) Unvaccinated: Negative (<=0.8 AI) VARICELLA IGG INDEX 2.4 11/21/2017 2:35 PM CDT [facility] Comment: Test Performed by: [facility] [address] [place] [id number] Blood Collection / Unknown 11/17/2017 1:30 PM DRUG SAFETY SPECIALIST 11/17/2017 8:26 PM DRUG SAFETY SPECIALIST Jun Gloria MD CHEMISTRY ORDERABLES Final R esult [facility] documented in this encounter Visit Diagnoses Not on filedocumented in this encounter Care Teams Benzene Worker Relationship Specialty Start Date End Date Elvin Reyes DO [address] [place], [place] [phone] PCP - General Internal Medicine 10/15/18 documented as of this encounter
--- OUTSIDE RECORDS SUMMARY | 2025-02-24 07:16 | XMS_ITS | Clinical Summary ---
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 See individual assays for performing site location. [...] has been evaluated with computer assisted technology. STRATEGIC PROCUREMENT MANAGER: Frederick [facility] Comment: [place], CT(ASCP) CT Screening location: [facility] [address] [place] [address] [facility] Comment: [...] and current clinical information. Test Performed at: [facility] [address] [address] [place] [address] Lauryn-Radha Thi Vo Genital SWAB OF ENDOCERVIX / Unknown 05/04/2022 1:01 PM CDT 05/04/2022 8:59 PM CDT us July Jaffe DO PATHOLOGY/CYTOLOGY ORDERABLES Fi nal Result [facility] [phone] [facility] [place] [address] [address] [place] [phone] from Last 3 Months or Most Recently [...] Type:RX Commercial Address: [place] Care Teams Promotions Associate Relationship Specialty Start Date End Date Elvin Reyes DO [address] [facility] [address] [place] [phone] PCP - General Internal Medicine 10/15/18
--- OUTSIDE RECORDS SUMMARY | 2025-02-24 07:17 | XMS_ITS | Clinical Summary ---
Author Organization [facility] Medical Office Building B Address [address] [place] [address] Care Team Providers Care Mining Helper Name Role Phone Unknown, Notinfile Primary Care [...] year. Chronic pain of left elbow 03/28/2017 Encounters Date Type Department Care Team Description 02/14/2025 9:45 AM CDT Lab [facility] Outpatient Lab at [address] [address] Irregular menstrual cycle (Primary Dx) 02/14/2025 9:43 AM CDT - 02/14/2025 11:59 PM CDT Hospital Encounter [address] [address] Irregular menstrual cycle Discharge Disposition: Discharge to home or self care from Last 3 Months Surgical History Surgery Date Site/Laterality Comments TONSILLECTOMY AND ADENOIDECTOMY Medical History Medical History Date Comments [place] teeth extracted 2010 Family History Medical History [...] of Binge Drinking Not on file 04/12 Comments No Sex and Gender Information Value Date Recorded Sex Assigned at Not on file Legal Sex Female 9:08 AM VOICE PATHOLOGIST Gender Identity Not on file Sexual Orientation [...] Well Visit/Exam 18-64 05/01/2024 05/01/2023 Covid-19 Vaccine ( season) 2024 02/16/2021 Influenza Vaccine (Season Ended) 2025 05/20/2022, 05/27/2021, 06/02/2020, Additional history exists HPV Vaccines Aged Out No longer eligi ble based on patient's age to complete this topic Pneumococcal vaccine <65 Aged Out No longer eligible based on patient's age to complete this topic Procedures Procedure Name Priority Date/Time Associated Diagnosis Comments BLOOD MISC TO RALEIGH Routine 02/14/2025 9: 43 AM CDT EGFR Routine 02/14/2025 9:43 AM CDT Irregular menstrual cycle DIFFERENTIAL AUTO Routine 02/14/2025 9:4 3 AM CDT Irregular menstrual cycle FOLLICLE STIMULATING HORMONE Routine 02/14/2025 9:43 AM CDT Irregular menstrual cycle FERRITIN Routine 02/14/2025 9:43 AM CDT Irregular menstrual cycle IRON PROFILE W/ IBC Routine 02/14/2025 9 :43 AM CDT Irregular menstrual cycle VITAMIN D 25 HYDROXY Routine 02/14/2025 9:43 AM CDT Irregular menstrual cycle HEMOGLOBIN A1C Routine 02/14/2025 9:43 AM CDT Irregular menstrual cycle DHEA-SULFATE Routine 02/14/2025 9:43 AM CDT Irregular menstrual cycle ESTRADIOL Routine 02/14/2025 9:43 AM CDT Irregular menstrual cycle THYROID FUNCTION CASCADE Routine 02/14/2025 9:43 AM CDT Irregular menstrual cycle CBC WITH AUTO DIFFERENTIAL Routine 02/14/2025 9:43 AM CDT Irregular menstrual cycle COMPREHENSIVE METABOLIC PANEL Routine 02/14/2025 9:43 AM CDT Irregular menstrual cycle SEX HORMONE BINDING GLOBULIN Routine 02/14/2025 9:43 AM CDT Irregular menstrual cycle PROLACTIN Routine 02/14/2025 9:43 AM CDT Irregular menstrual cycle LUTEINIZING HORMONE (LH) Routine 02/14/2025 9:43 AM CDT Irregular menstrual cycle VITAMIN B12 Routine 02/14/2025 9:43 AM CDT Irregular menstrual cycle FOLATE Routine 02/14/2025 9:43 AM CDT Irregular menstrual cycle PAP WITH REFLEX TO HIGH RISK HPV Routine 05/01/2023 12:03 PM CDT Well woman exam with routine gynecological exam Special screening examination for human papillomavirus (HPV) Screening for malignant neoplasm of the cervix from Last 3 Months or Most Recently Relevant to Health Maintenance Results * BLOOD MISC TO RALEIGH (02/14/2025 9:43 AM CDT) Test name, chem AMH1 Achille ref Lab Misc See Footnote RONALD ARANDA Comment: Test Result Flag Unit RefValue Antimullerian Hormone, S 1.0 ng/mL 0.58-8.1 ADDITIONAL INFORMATION The testing method is an electrochemiluminescence assay manufactured by [employer] and performed on the Rene system. Values obtained with different assay methods or kits may be different and cannot be used interchangeably. This test has been modified from the manufacturers instructions. Its performance characteristics were determined by [facility] in a manner consistent with CLIA requirements. This test has not been cleared or approved by the U.S. Food and Drug Administration. Test Performed by: [place] [address] Wrapper Sizer: Aissatou Hernandez Ph.D.; CLIA# [id number] Blood 02/14/2025 9:43 AM CDT 02/17/2025 7:33 AM CDT Narrative [facility] 02/18/2025 3:03 PM CDT ANTI MULLERIAN HORMONE China Macias MD LAB BLOOD ORDERABLES Fi nal Result Performing Organization Address [facility] Co de Phone Number RONALD [address] [address] [facility] [place] [address] Achille ref Lab * Sex hormone binding globulin (02/14/2025 9:43 AM CDT) Pathologist [facility] Sex steroid binding globulin 89.2 18.2 - 135.5 nmol/L Achille ref Lab Comment: Test Performed by: [place] [address] Wrapper Sizer: Aissatou Hernandez Ph.D.; CLIA# [id number] Blood 02/14/2025 9:43 AM CDT 02/14/2025 4:23 PM CDT Shena [facility] 02/18/2025 3:32 PM CDT FAX RESULTS TO DR CHINA MACIAS [id number] China Macias MD LAB BLOOD ORDERABLES Fi nal Result Performing Organization Address City/[facility]/ZIP Co de Phone Number [facility] [address] [address] [facility] [place] [address] Achille ref Lab * eGFR (02/14/2025 9:43 AM CDT) Pathologist [facility] eGFR >90 >=60 mL/min/1. 73 m2 Comment: Interpretive Data Reference Interval Normal >/= 90 mL/min/1.73m2 Mildly decreased* 60 - 89 mL/min/1.73m2 Mildly to moderately decreased 45 - 59 mL/min/1.73m2 Moderately to severely decreased 30 - 44 mL/min/1.73m2 Severely decreased 15 - 29 mL/min/1.73m2 Kidney Failure < 15 mL/min/1.73m2 *Relative to young adult level Estimated glomerular filtration rate is determined by the 2020 CKD-EPI equation recommended by the National Kidney Foundation (A Unifying Approach to GFR Estimation: Recommendations of the NKF-ASK Task Force on Reassessing the Inclusion of Race in Diagnosing Kidney Disease, JASN 2020). The CKD-EPI equation should not be used for patients with unstable renal function and has not been validated in children and those over 70. Current interpretive data was last reviewed 2021. Blood 02/14/2025 9:43 AM CDT 02/14/2025 4:47 PM CDT China Macias MD LAB BLOOD ORDERABLES nal Result [facility] [address] Department [place] [address] * Differential, auto (02/14/2025 9:43 AM CDT) Pathologist [facility] Neutrophil abs 2.72 1.50 - 6.50 K/cumm Imm gran abs 0.01 0.00 - 0.10 K/cumm [facility] Lymphocyte abs 2.22 0.80 - 3.30 K/cumm [facility] Monocyte abs 0.37 0.20 - 0.80 K/cumm [facility] Eosinophil abs 0.05 0.00 - 0.50 K/cumm [facility] Basophil abs 0.02 0.00 - 0.10 K/cumm [facility] Neutrophil pct 50.4 % [facility] Comment: Interpretive Data Percent cell count reference ranges are not reported, since discordance with absolute values may lead to misinterpretation of CBC data. Current Interpretive Data was last revised on 2017. Imm gran pct 0.2 % [facility] Comment: Interpretive Data Percent cell count reference ranges are not reported, since discordance with absolute values may lead to misinterpretation of CBC data. Current Interpretive Data was last revised on 2017. Lymphocyte pct 41.2 % [facility] Comment: Interpretive Data Percent cell count reference ranges are not reported, since discordance with absolute values may lead to misinterpretation of CBC data. Current Interpretive Data was last revised on 2017. Monocyte pct 6.9 % [facility] Comment: Interpretive Data Percent cell count reference ranges are not reported, since discordance with absolute values may lead to misinterpretation of CBC data. Current Interpretive Data was last revised on 2017. Eosinophil pct 0.9 % [facility] Comment: Interpretive Data Percent cell count reference ranges are not reported, since discordance with absolute values may lead to misinterpretation of CBC data. Current Interpretive Data was last revised on 2017. Basophil pct 0.4 % [facility] Comment: Interpretive Data Percent cell count reference ranges are not reported, since discordance with absolute values may lead to misinterpretation of CBC data. Current Interpretive Data was last revised on 2017. Blood 02/14/2025 9:43 AM CDT 02/14/2025 4:02 PM CDT China Macias MD LAB BLOOD ORDERABLES Fi nal Result Performing Organization Address City/[facility]/ZIP Co de Phone Number [facility] [address] Department [place] [address] * Thyroid Function Dund[place] (02/14/2025 9:43 AM CDT) TSH 3.02 0.30 - 4.20 mcIUnit/mL Blood 02/14/2025 9:43 AM CDT 02/14/2025 4:01 PM CDT Narrative RONALD - 02/14/2025 5:27 PM CDT FAX RESULTS TO DR CHINA MACIAS [phone] China Macias MD LAB BLOOD ORDERABLES Fi nal Result RONALD ARANDA [address] [address] Department [place] [address] * Iron profile w/ IBC (02/14/2025 9:43 AM CDT) [facility] Iron 94 35 - 145 mcg/dl TIBC 327 250 - 400 mcg/dL [facility] Transferrin saturation 29 20 - 50 % [facility] Blood 02/14/2025 9:43 AM CDT 02/14/2025 4:01 PM CDT Narrative [facility] - 02/14/2025 5:27 PM CDT FAX RESULTS TO DR CHINA MACIAS [id number] China Macias MD LAB BLOOD ORDERABLES nal Result RONALD ARANDA [address] [address] Department [place] [address] * (ABNORMAL) CBC with auto differential (02/14/2025 9:43 AM CDT) [facility] WBC 5.39 3.80 - 9.90 K/cumm Hgb 14.0 11.9 - 15.5 g/dL [facility] Hct 44.1 35.6 - 45.5 % [facility] Plt 230 150 - 400 K/cumm [facility] MPV 11.8 9.1 - 12.3 fL [facility] RBC 4.58 3.90 - 5.20 M/cumm [facility] MCV 96.3 81.3 - 96.4 fL [facility] MCH 30.6 27.1 - 33.3 pg [facility] MCHC 31.7(L) 32.3 - 35.7 g/dL [facility] RDW CV 12.2 11.1 - 14.9 % [facility] RDW SD 43.4 35.7 - 48.1 fL [facility] NRBC abs 0.00 0.00 - 0.01 K/cumm [facility] Blood 02/14/2025 9:43 AM CDT 02/14/2025 4:02 PM CDT Narrative [facility] - 02/14/2025 5:01 PM CDT FAX RESULTS TO DR CHINA MACIAS [id number] China Macias MD LAB BLOOD ORDERABLES Fi nal Result Performing Organization Address City/[facility] Co de Phone Number AMARJITDIOGENES ARANDA [address] [address] [facility] [place] [address] * Vitamin D 25 hydroxy (02/14/2025 9:43 AM CDT) Vitamin D 25-OH 45 30 - 80 ng/mL Blood 02/14/2025 9:43 AM CDT 02/14/2025 4:36 PM CDT Narrative RONALD - 02/14/2025 5:39 PM CDT FAX RESULTS TO DR CHINA MACIAS [id number] China Macias MD LAB BLOOD ORDERABLES Fi nal Result Performing Organization Address [facility] Co de Phone Number RONALD ROSI [address] [address] [place] [address] * Prolactin (02/14/2025 9:43 AM CDT) Pathologist [facility] Prolactin 8.8 4.8 - 23.3 ng/mL Blood Venous blood specimen / Unknown 02/14/2025 9:43 AM CDT 02/14/2025 4:01 PM CDT Narrative RONALD - 02/14/2025 5:27 PM CDT FAX RESULTS TO DR CHINA MACIAS [id number] China Macias MD LAB BLOOD ORDERABLES Fi nal Result Performing Organization Address City/[facility]/ZIP Co de Phone Number RONALD ROSI [address] [address] [place] [address] * DHEA-sulfate (02/14/2025 9:43 AM CDT) DHEA-S 134.0 98.8 - 340.0 mcg/dL Comment:Testing performed by : [facility] [place] [facility], [address] [place]., [address] Blood 02/14/2025 9:43 AM CDT 02/14/2025 10:03 PM CDT Narrative RONALD - 02/14/2025 10:56 PM CDT FAX RESULTS TO DR CHINA MACIAS [id number] China Macias MD LAB BLOOD ORDERABLES Fi nal Result RONALD [address] [address] [place] [address] * Estradiol (02/14/2025 9:43 AM CDT) Pathologist [facility] Estradiol 79.4 pg/mL Comment: Interpretive Data Males: 11 43 pg/mL Females: Premenopausal: 31 533 pg/mL Postmenopausal: < 50 pg/mL Patients treated with Fluvestrant (Faslodex) should be tested using an alternate assay such as LC-MS due to potential for cross-reactivity. Estradiol varies widely throughout the menstrual cycle. Current interpretive data was last revised 2024. Testing performed by: [facility] [place] [facility], [address] [place]., [address] Blood 02/14/2025 9:43 AM CDT 02/14/2025 10:03 PM CDT Narrative RONALD - 02/14/2025 10:47 PM CDT FAX RESULTS TO DR CHINA MACIAS [id number] China Macias MD LAB BLOOD ORDERABLES Fi nal Result RONALD [address] [address] [place] [address] * Hemoglobin A1c (02/14/2025 9:43 AM CDT) Pathologist [facility] Hgb A1C 5.0 4.0 - 5.6 % Estimated Average Glucose 97 mg/dL RONALD Comment: The ADA recommends reporting an estimated Average Glucose (eAG) with all Hemoglobin A1c results using the equation derived from a study of 507 normal and diabetic adults. Minority populations were underrepresented and children were not included. (Diabetes Care 31:5187-7190, 2008). The eAG is not equivalent to a fasting glucose. Blood Venous blood specimen / Unknown 02/14/2025 9:43 AM CDT 02/14/2025 4:02 PM CDT Narrative [facility] - 02/14/2025 5:15 PM CDT FAX RESULTS TO DR CHINA MACIAS [id number] China Macias MD LAB BLOOD ORDERABLES Fi nal Result Performing Organization Address [facility] Co de Phone Number [facility] [address] [place] [address] * LH (02/14/2025 9:43 AM CDT) LH 5.4 IUnits/L Comment: Interpretive Data Males: Adults: 1.7 - 8.6 IUnits/L Females: Follicular: 2.4 - 12.6 IUnits/L Ovulation: 14.0 - 95.6 IUnits/L Luteal: 1.0 - 11.4 IUnits/L Postmenopausal: 7.7 - 58.5 IUnits/L Current interpretive data was last revised on 2019. Testing performed by: [facility] [place] [facility], [address] [place]., [address] Blood Venous blood specimen / Unknown 02/14/2025 9:43 AM CDT 02/14/2025 10:03 PM CDT Narrative [facility] - 02/14/2025 10:47 PM CDT FAX RESULTS TO DR CHINA MACIAS [id number] China Macias MD LAB BLOOD ORDERABLES Fi nal Result Performing Organization Address [facility] Co de Phone Number [facility] [address] [address] Department [place] [address] * Follicle stimulating hormone (02/14/2025 9:43 AM CDT) FSH 6.4 IUnits/L Comment: Interpretive Data Male: Adults: 1.5 - 12.4 IUnits/L Female: Follicular: 3.5 - 12.5 IUnits/L Ovulation: 4.7 - 21.5 IUnits/L Luteal: 1.7 - 7.7 IUnits/L Postmenopausal: 25.8 - 134.8 IUnits/L Current interpretive data was last revised 2015. Testing performed by: [facility] [place] [facility], [address] [place]., [address] Blood Venous blood specimen / Unknown 02/14/2025 9:43 AM CDT 02/14/2025 10:03 PM CDT Shena CARDENAS - 02/14/2025 10:47 PM CDT FAX RESULTS TO DR CHINA MACIAS [id number] China Macias MD LAB BLOOD ORDERABLES Fi nal Result Performing Organization Address City/[facility] Co de Phone Number [facility] [address] [place] [address] * Folate (02/14/2025 9:43 AM CDT) [facility] Folic acid >20.0 >=5.0 ng/mL Comment:Hemolysis present. R esults may be affected. Blood 02/14/2025 9:43 AM CDT 02/14/2025 4:01 PM CDT Shena CARDENAS - 02/14/2025 5:27 PM CDT FAX RESULTS TO DR CHINA MACIAS [id number] China Macias MD LAB BLOOD ORDERABLES Fi nal Result Performing Organization Address City/[facility] Co de Phone Number [facility] [address] [address] [facility] [place] [address] * Ferritin (02/14/2025 9:43 AM CDT) [facility] Ferritin 75 15 - 150 ng/mL Blood Venous blood specimen / Unknown 02/14/2025 9:43 AM CDT 02/14/2025 4:01 PM CDT Narrative [facility] - 02/14/2025 5:27 PM CDT FAX RESULTS TO DR CHINA MACIAS [id number] China Macias MD LAB BLOOD ORDERABLES Fi nal Result Performing Organization Address City/[facility] Co de Phone Number [facility] [address] [address] [facility] [place] [address] * Vitamin B12 (02/14/2025 9:43 AM CDT) Pathologist [facility] Vitamin B12 766 230 - 1,250 pg/mL Blood Venous blood specimen / Unknown 02/14/2025 9:43 AM CDT 02/14/2025 4:01 PM CDT Narrative [facility] - 02/14/2025 5:27 PM CDT FAX RESULTS TO DR CHINA MACIAS [id number] China Macias MD LAB BLOOD ORDERABLES Fi nal Result Performing Organization Address [facility] de Phone Number [facility] [address] [address] [facility] [place] [address] * Comprehensive metabolic panel (02/14/2025 9:43 AM CDT) Pathologist [facility] Sodium 140 135 - 145 mmol/L Potassium, pl 4.4 3.3 - 4.9 mmol/L [facility] Chloride 106 97 - 110 mmol/L [facility] CO2 25 22 - 32 mmol/L [facility] Anion gap 9 2 - 15 mmol/L [facility] BUN 10 6 - 25 mg/dL [facility] Creatinine 0.68 0.60 - 1.10 mg/dL [facility] Glucose 85 70 - 199 mg/dL [facility] Comment: Interpretive Data Fasting glucose >/= 126 mg/dl is diagnostic for diabetes. Fasting is defined as no caloric intake for at least 8 hours. Fasting glucose between 100 mg/dl to 125 mg/dl is diagnostic of prediabetes. In a patient with classic symptoms of hyperglycemia or hyperglycemic crisis, a random glucose >/= 200 mg/dl is diagnostic for diabetes. In the absence of unequivocal hyperglycemia, results should be confirmed by repeat testing. The classification and Diagnosis of Diabetes Diabetes Care 2021; 46: S19-S40. Current interpretive data was last revised 2022. Calcium 9.9 8.5 - 10.3 mg/dL [facility] Bilirubin, total 0.5 0.1 - 1.2 mg/dL [facility] Protein, pl 7.4 6.5 - 8.5 g/dL [facility] Albumin 4.8 3.5 - 5.0 g/dL [facility] Alk phos 58 40 - 130 Units/L [facility] ALT 41 7 - 45 Units/L [facility] AST 39 10 - 45 Units/L [facility] Blood Venous blood specimen / Unknown 02/14/2025 9:43 AM CDT 02/14/2025 4:01 PM CDT Narrative [facility] - 02/14/2025 5:27 PM CDT FAX RESULTS TO DR CHINA MACIAS [id number] China Macias MD LAB BLOOD ORDERABLES nal Result RONALD [address] [place] [address] * Pap with reflex to High Risk HPV and Genotyping (Cytology Component) (05/01/2023 12:03 PM CDT) Thin prep (Pap test) 05/01/2023 12:03 PM CDT 05/04/2023 5:33 PM CDT Narrative PATHOLOGY [facility] - 05/10/2023 10:35 AM CDT [facility] results best viewed via link to PDF [id number] [place], [place] [address] Tele: Michelle Terry MD - Mortician Helper CYTOLOGY REPORT Note to Patients: This report [...] and explain the details. Patient Name: ELIZABETH CHRIS. Address: [address] [address] Gender: F : 1995 (Age: 28) Service: Location: [facility] #: [id number] Patient Type: [facility] SPECIMEN Taken: 05/01/2023 Reported: 05/10/2023 Physician(s): Kasey [...] MD LAB CYTOLOGY ORDERABLES Final Result PATHOLOGY [facility] Laboratory Receiving [address] [place] [address] from Last 3 Months or Most Recently Relevant to Health Maintenance Insurance [employer] [employer] Address: [facility] [phone] [place] [phone] [employer] [facility] [place] Address: [facility] [address] [place] [address] Care Teams Mining Helper Relationship Specialty Start Date End Date Unknown, Notinfile PCP - General 03/24/17 Kasey Xiao MD [address] [facility] [place] [address] [place] [address] Consulting Physician Obstetrics and Gynecology 03/22/23
--- OUTSIDE RECORDS SUMMARY | 2025-02-24 07:17 | XMS_ITS | Referral Summary ---
Author Organization [facility] [address] Address [address] [place] [address] Care Team Providers Care Handbook Writer Name Role Phone Unknown, Notinfile Primary Care Provider Unavail able Kasey Xiao MD Unavailable [phone] Encounters Date Type Department Care Team Description 02/14/2025 9:43 AM CDT - 02/14/2025 11:59 [place] [address] Irregular menstrual cycle Discharge Disposition: Discharge to home or self care 02/14/2025 9:45 AM CDT Lab [facility] Outpatient Lab at [address] [address] Irregular menstrual cycle (Primary Dx) from Last 3 Months Allergies Active Allergy Reactions Criticality Noted Date Comments Erythromycin Unknown,Nausea only, Shortness of breath High 03/28/2017 Medications valACYclovir (VALTREX) 1 gram tablet 03/22/2023 Active desog-e.estradio L/e.estradioL (KARIVA) 0.15-0.02 mgx21 /0.01 mg x 5 per tablet Take 1 tablet by mouth daily 84 tablet 3 05/01/2023 Active Active Problems Problem Noted Date Diagnosed Date Cervical cancer screening 05/12/2023 Overview (05/12/2023): 8/21/23 - Pap negative Well woman exam with [...] on file 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 and performed on the Rene system. Values obtained with different assay methods or kits may be different and cannot be used interchangeably. This test has been modified from the manufacturers instructions. Its performance characteristics were determined by [facility] in a manner consistent with CLIA requirements. This test has not been cleared or approved by the U.S. Food and Drug Administration. Test Performed by: [place] [address] Sports Centre Manager: Aissatou Hernandez Ph.D.; CLIA# [id number] Blood 02/14/2025 9:43 AM CDT 02/17/2025 7:33 AM CDT Shena CARDENAS CH - 02/18/2025 3:03 PM CDT ANTI MULLERIAN HORMONE us China Macias MD LAB BLOOD ORDERABLES Fi nal Result RONALD ARANDA [address] Department [place] [address] [facility] Lab * Sex hormone binding globulin (02/14/2025 9:43 AM CDT) Sex steroid binding globulin 89.2 18.2 - 135.5 nmol/L [facility] Comment: Test Performed by: [place] [address] Sports Centre Manager: Aissatou Hernandez Ph.D.; IA# [id number] Blood 02/14/2025 9:43 AM CDT 02/14/2025 4:23 PM CDT Narrative RONALD Rivera 02/18/2025 3:32 PM CDT FAX RESULTS TO DR CHINA MACIAS [id number] China Macias MD LAB BLOOD ORDERABLES Fi nal Result RONALD ROSI [address] Department [place] [address] [place] [facility] * eGFR (02/14/2025 9:43 AM CDT) eGFR >90 >=60 mL/min/1. 73 m2 Comment: [...] ORDERABLES Fi nal Result Performing Organization Address City/[facility]/[place] [address] [address] Department [employer] [place], [place] [phone] * Differential, auto (02/14/2025 9:43 AM CDT) Neutrophil abs 2.72 1.50 - 6.50 K/cumm Imm gran abs 0.01 0.00 - 0.10 K/cumm [facility] Lymphocyte abs 2.22 0.80 - 3.30 K/cumm [facility] Monocyte abs 0.37 0.20 - 0.80 K/cumm [facility] Eosinophil abs 0.05 0.00 - 0.50 K/cumm [facility] Basophil abs 0.02 0.00 - 0.10 K/cumm [facility] Neutrophil pct 50.4 % CERNER Comment: Interpretive Data Percent cell count reference ranges are not reported, since discordance with absolute values may lead to misinterpretation of CBC data. Current Interpretive Data was last revised on 2017. Imm gran pct 0.2 % CERNER Comment: Interpretive Data Percent cell [...] revised on 2017. Basophil pct 0.4 % CERNER Comment: Interpretive Data Percent cell count reference ranges are not reported, since discordance with absolute values may lead to misinterpretation of CBC data. Current Interpretive Data was last revised on 2017. Blood 02/14/2025 9:43 AM CDT 02/14/2025 4:02 PM CDT us China Margo Dennis MD LAB BLOOD ORDERABLES Fi nal Result Performing Organization Address [facility] Co de Phone Number [facility] [address] [address] [facility] [place] [address] * Thyroid Function [place] (02/14/2025 9:43 AM CDT) TSH 3.02 0.30 - 4.20 mcIUnit/mL Blood 02/14/2025 9:43 AM CDT 02/14/2025 4:01 PM CDT Narrative [facility] - 02/14/2025 5:27 PM CDT FAX RESULTS TO DR CHINA MACIAS [id number] China Macias MD LAB BLOOD ORDERABLES Fi nal Result Performing Organization Address [facility] de Phone Number [facility] [address] [address] [facility] [place] [address] * Iron profile w/ IBC (02/14/2025 9:43 AM CDT) Iron 94 35 - 145 mcg/dl TIBC 327 250 - 400 mcg/dL [facility] Transferrin saturation 29 20 - 50 % [facility] Blood 02/14/2025 9:43 AM CDT 02/14/2025 4:01 PM CDT Narrative [facility] - 02/14/2025 5:27 PM CDT FAX RESULTS TO DR CHINA MACIAS [id number] China Macias MD LAB BLOOD ORDERABLES Fi nal Result Performing Organization Address City/[facility]/ZIP Co de Phone Number [facility] [address] [address] [facility] [place] [address] * (ABNORMAL) CBC with auto differential (02/14/2025 9:43 AM CDT) WBC 5.39 3.80 - 9.90 K/cumm Hgb 14.0 11.9 - 15.5 g/dL [facility] Hct 44.1 35.6 - 45.5 % CERNER Plt 230 150 - 400 K/cumm [facility] MPV 11.8 9.1 - 12.3 fL [facility]ER RBC 4.58 3.90 - 5.20 M/cumm [facility] CH MCV 96.3 81.3 - 96.4 fL [facility] MCH 30.6 27.1 - 33.3 pg [facility] MCHC 31.7(L) 32.3 - 35.7 g/dL [facility] RDW CV 12.2 11.1 - 14.9 % [facility] CH RDW SD 43.4 35.7 - 48.1 fL [facility] NRBC abs 0.00 0.00 - 0.01 K/cumm [facility] Blood 02/14/2025 9:43 AM CDT 02/14/2025 4:02 PM CDT Narrative [facility] - 02/14/2025 5:01 PM CDT FAX RESULTS TO DR CHINA MACIAS [id number] China Macias MD LAB BLOOD ORDERABLES Fi nal Result Performing Organization Address City/[facility] Co de Phone Number [facility] [address] [address] [place] [address] * Vitamin D 25 hydroxy (02/14/2025 9:43 AM CDT) [facility] Vitamin D 25-OH 45 30 - 80 ng/mL Blood 02/14/2025 9:43 AM CDT 02/14/2025 4:36 PM CDT Narrative [facility] - 02/14/2025 5:39 PM CDT FAX RESULTS TO DR CHINA MACIAS [id number] China Macias MD LAB BLOOD ORDERABLES Fi nal Result [facility] [address] [address] [facility] [place], [place] [id number] * Prolactin (02/14/2025 9:43 AM CDT) Pathologist [facility] Prolactin 8.8 4.8 - 23.3 ng/mL Blood Venous blood specimen / Unknown 02/14/2025 9:43 AM CDT 02/14/2025 4:01 PM CDT [facility] - 02/14/2025 5:27 PM CDT FAX RESULTS TO DR CHINA MACIAS [id number] China Macias MD LAB BLOOD ORDERABLES Fi nal Result Performing Organization Address City/[facility] Co de Phone Number [facility] [address] [address] [facility] [place] [address] * DHEA-sulfate (02/14/2025 9:43 AM CDT) Pathologist [facility] DHEA-S 134.0 98.8 - 340.0 mcg/dL Comment:Testing performed by : [facility], [address] [place] [address]., [address] Blood 02/14/2025 9:43 AM CDT 02/14/2025 10:03 PM CDT Narrative [facility] - 02/14/2025 10:56 PM CDT FAX RESULTS TO DR CHINA MACIAS [id number] China Macias MD LAB BLOOD ORDERABLES Fi nal Result Performing Organization Address [facility] de Phone Number [facility] [address] [address] [facility] [place] [address] * Estradiol (02/14/2025 9:43 AM CDT) Estradiol 79.4 pg/mL Comment: Interpretive Data Males: 11 43 pg/mL Females: Premenopausal: 31 533 pg/mL Postmenopausal: < 50 pg/mL Patients treated with Fluvestrant (Faslodex) should be tested using an alternate assay such as LC-MS due to potential for cross-reactivity. Estradiol varies widely throughout the menstrual cycle. Current interpretive data was last revised 2024. Testing performed by: [facility], [address] [place] [address]., [address] Blood 02/14/2025 9:43 AM CDT 02/14/2025 10:03 PM CDT Narrative [facility] - 02/14/2025 10:47 PM CDT FAX RESULTS TO DR CHINA MACIAS [id number] China Macias MD LAB BLOOD ORDERABLES Fi nal Result Performing Organization Address [facility] de Phone Number [facility] [address] [address] [place] [address] * Hemoglobin A1c (02/14/2025 9:43 AM CDT) Hgb A1C 5.0 4.0 - 5.6 % Estimated Average Glucose 97 mg/dL [facility] Comment: The ADA recommends reporting an estimated Average Glucose (eAG) with all Hemoglobin A1c results using the equation derived from a study of 507 normal and diabetic adults. Minority populations were underrepresented and children were not included. (Diabetes Care 31:9569-9007, 2008). The eAG is not equivalent to a fasting glucose. Blood Venous blood specimen / Unknown 02/14/2025 9:43 AM CDT 02/14/2025 4:02 PM CDT Narrative [facility] - 02/14/2025 5:15 PM CDT FAX RESULTS TO DR CHINA MACIAS [id number] China Macias MD LAB BLOOD ORDERABLES Fi nal Result Performing Organization Address [facility] de Phone Number [facility] [address] [place] [address] * LH (02/14/2025 9:43 AM CDT) LH 5.4 IUnits/L Comment: Interpretive Data Males: Adults: 1.7 - 8.6 IUnits/L Females: Follicular: 2.4 - 12.6 IUnits/L Ovulation: 14.0 - 95.6 IUnits/L Luteal: 1.0 - 11.4 IUnits/L Postmenopausal: 7.7 - 58.5 IUnits/L Current interpretive data was last revised on 2019. Testing performed by: [facility], [address] [place]., [address] Blood Venous blood specimen / Unknown 02/14/2025 9:43 AM CDT 02/14/2025 10:03 PM CDT Narrative [facility] - 02/14/2025 10:47 PM CDT FAX RESULTS TO DR CHINA MACIAS [id number] China Macias MD LAB BLOOD ORDERABLES Fi nal Result RONALD [address] [place] [address] * Follicle stimulating hormone (02/14/2025 9:43 AM CDT) [facility] FSH 6.4 IUnits/L Comment: Interpretive Data Male: Adults: 1.5 - 12.4 IUnits/L Female: Follicular: 3.5 - 12.5 IUnits/L Ovulation: 4.7 - 21.5 IUnits/L Luteal: 1.7 - 7.7 IUnits/L Postmenopausal: 25.8 - 134.8 IUnits/L Current interpretive data was last revised 2015. Testing performed by: [facility], [address] [place]., [address] Blood Venous blood specimen / Unknown 02/14/2025 9:43 AM CDT 02/14/2025 10:03 PM CDT Narrative [facility] - 02/14/2025 10:47 PM CDT FAX RESULTS TO DR CHINA MACIAS [id number] China Macias MD LAB BLOOD ORDERABLES [place] [address] [place] [address] * Folate (02/14/2025 9:43 AM CDT) [facility] Folic acid >20.0 >=5.0 ng/mL Comment:Hemolysis present. R esults may be affected. Blood 02/14/2025 9:43 AM CDT 02/14/2025 4:01 PM CDT Narrative [facility] - 02/14/2025 5:27 PM CDT FAX RESULTS TO DR CHINA MACIAS [id number] China Macias MD LAB BLOOD ORDERABLES Fi nal Result [facility] [address] [address] [facility] [place], [place] [id number] * Ferritin (02/14/2025 9:43 AM CDT) [facility] Ferritin 75 15 - 150 ng/mL Blood Venous blood specimen / Unknown 02/14/2025 9:43 AM CDT 02/14/2025 4:01 PM CDT Narrative [facility] 02/14/2025 5:27 PM CDT FAX RESULTS TO DR CHINA MACIAS [id number] China Macias MD LAB BLOOD ORDERABLES Fi nal Result Performing Organization Address City/[facility] Co de Phone Number [facility] [address] [address] [facility] [place] [address] * Vitamin B12 (02/14/2025 9:43 AM CDT) [facility] Vitamin B12 766 230 - 1,250 pg/mL Blood Venous blood specimen / Unknown 02/14/2025 9:43 AM CDT 02/14/2025 4:01 PM CDT Narrative [facility] 02/14/2025 5:27 PM CDT FAX RESULTS TO DR CHINA MACIAS [id number] us China Macias MD LAB BLOOD ORDERABLES Fi nal Result Performing Organization Address City/[facility]/ZIP Co de Phone Number [facility] [address] Department [place] [address] * Comprehensive metabolic panel (02/14/2025 9:43 AM CDT) Sodium 140 135 - 145 mmol/L Potassium, pl 4.4 3.3 - 4.9 mmol/L [facility] Chloride 106 97 - 110 mmol/L [facility] CO2 25 22 - 32 mmol/L [facility] Anion gap 9 2 - 15 mmol/L [facility] BUN 10 6 - 25 mg/dL [facility] Creatinine 0.68 0.60 - 1.10 mg/dL [facility] Glucose 85 70 - 199 mg/dL [facility] Comment: Interpretive Data Fasting glucose >/= 126 [...] CDT FAX RESULTS TO DR CHINA MACIAS [id number] China Macias MD LAB BLOOD ORDERABLES Fi nal Result [facility] [address] Department [place] [address] * Pap with reflex to High Risk HPV and Genotyping (Cytology Component) (05/01/2023 12:03 PM CDT) Thin prep (Pap test) 05/01/2023 12:03 PM CDT 05/04/2023 5:33 PM CDT Narrative PATHOLOGY [facility] - 05/10/2023 10:35 AM CDT EPIC results best viewed via link to PDF [address] [address] Tele: Michelle Terry MD - Aviation Neuropsychologist CYTOLOGY REPORT Note to Patients: This report [...] the details. Patient Name: ELIZABETH CHRIS Address: [address] [place] [address] Gender: F : 1995 (Age: 28) Service: Location: N : [id number] Hospital #: [id number] Patient Type: [facility] SPECIMEN Taken: 05/01/2023 Reported: 05/10/2023 Physician(s): Kasey [...] MD LAB CYTOLOGY ORDERABLES Final Result PATHOLOGY [facility] Laboratory Receiving [address] [place], [place] [id number] from Last 3 Months or Most Recently Relevant to Health Maintenance Insurance [employer] Care Teams Handbook Writer Relationship Specialty Start Date End Date Unknown, Notinfile PCP - General 03/24/17 Kasey Xiao MD [address] [place] [address] Consulting Physician Obstetrics and Gynecology 03/22/23
[2025-02-24 08:07] LABS: Beta HCG Quantitative < 2.39 mIU/ML
[2025-02-25 01:58] LABS: Progesterone 6.6 ng/mL
[2025-02-25 06:23] LABS: Sex Hormone Binding Globulin 102 nmol/L (17-124)
== END 2025-02-24 07:14 | disposition home or self-care (01) ==
PROVIDERS: PCP Obstetrics & Gynecology; Visit Provider Obstetrics & Gynecology
DX: N92.6 Irregular menstruation, unspecified (principal)
CPT/HCPCS: 36415; 58340; 74740; 84144; 84270; 84702

== ENCOUNTER 2025-06-20 08:16 | Outpatient (CLI) | payer OTHER, SELFPAY ==
--- OUTSIDE RECORDS SUMMARY | 2025-06-20 08:22 | XMS_ITS | Clinical Summary ---
Author Organization [facility] Address [address] [place] [address] Phone Care Team Providers Care Piano Player Name Role Phone Unavailable Primary Care Provider Unavailabl e Encounters Date Type Department Care Team Description 06/19[facility]20[facility] [address] [place] [address] Belle Haley APRN, CNP 06/19/2025 Travel from Last 3 Months Social History Tobacco Use Types Packs/Day Years Used Date Smoking Tobacco: Never Assessed Comments Unknown Sex and Gender Information Value Date Recorded Sex Assigned at Not on file Legal Sex Female 8:30 AM CDT Gender Identity Not on file Sexual Orientation Not on file Plan of Treatment Health Maintenance Due Date Last Done Comments Hepatitis C Virus (HCV) Screening 1995 Pap Smear 2015 Human Papillomavirus (HPV) Immunization (1 - 3-dose SCDM series) 2021 Cervical Cancer Screening (CCS) 2024 HPV/Cotest 2024 Influenza Immunization (#1) 05/12/202506/12, 06/30/2023, 05/20/2022, Additional history exists SARS-COV-2 Immunization ( season) 2025 02/16/2021 Respiratory Syncytial Virus (RSV) Immunization (Adult) (1 - 1-dose 75+ series) 2069 Hepatitis B Immunization Completed 995, 1995, 1995 TdaP Immunization Completed 02/15/2008 Meningococcal Immunization (ACWY) Aged Out No longer eligible based on patient's age to complete this topic Pneumococcal Immunization Combined Aged Out No longer eligible based on patient's age to complete this topic Rotavirus Immunization Aged Out No lo nger eligible based on patient's age to complete this topic Procedures Procedure Name Priority Date/Time Associated Diagnosis Comments RUBEOLA (MEASLES) IGG Routine 06/19/2025 8:20 AM CDT RUBELLA IMMUNITY IGG Routine 06/19/2025 8:20 AM CDT MUMPS IGG Routine 06/19/2025 8:20 AM CDT HEPATITIS B SURFACE ANTIBODY (HBSAB) Routine 06/19/2025 8:20 AM CDT from Last 3 Months Results * MUMPS IGG (06/19/2025 8:20 AM CDT) Mumps Ab IgG 2.2 >=1.1 AI 06/19/2025 4:20 PM CDT [facility] Blood No Phlebotomy Charged / Unknown 06/19/2025 8:20 AM CDT 06/19/2025 9:22 AM CDT Narrative [facility] - 06/19/2025 4:20 PM CDT <= 0.8 Negative. No detectable Mumps IgG antibody. 0.9 - 1.0 Equivocal >=1.1 Positive Antibody testing was performed by multiplex flow immunoassay on the [employer]lex platform. us Belle Haley TRANSMISSION SUPERINTENDENT, SALES ADMINISTRATION MANAGER IMMUNOLOGY ORDERABL ES Final Result [facility] [address] [place] [address], * RUBEOLA (MEASLES) IGG (06/19/2025 8:20 AM CDT) MEASLES AB IGG 1.1 >=1.1 AI 06/20/2025 2:28 AM CDT [facility] Blood No Phlebotomy Charged / Unknown 06/19/2025 8:20 AM CDT 06/19/2025 9:22 AM CDT Narrative [facility] - 06/20/2025 2:28 AM CDT <= 0.8 Negative. No detectable Measles IgG antibody. 0.9 - 1.0 Equivocal >=1.1 Positive Antibody testing was performed by multiplex flow immunoassay on the [employer]lex platform. us Belle L Behrends TRANSMISSION SUPERINTENDENT, SALES ADMINISTRATION MANAGER IMMUNOLOGY ORDERABL ES Final Result Performing Organization Address [facility] de Phone Number [facility] [address] [place] [address], [place] * RUBELLA IMMUNITY IGG (06/19/2025 8:20 AM CDT) RUBELLA IMMUNITY Immune Immune, Invalid 06/19/2025 4:20 PM CDT [facility] RUBELLA IGG QUANT 1.70 >=1.0 AI AI 06/19/2025 4:20 PM CDT [facility] Blood No Phlebotomy Charged / Unknown 06/19/2025 8:20 AM CDT 06/19/2025 9:22 AM CDT Narrative [facility] - 06/19/2025 4:20 PM CDT Antibody testing was performed by multiplex flow immunoassay on the [employer] platform. Belle L Behrends TRANSMISSION SUPERINTENDENT, SALES ADMINISTRATION MANAGER CHEMISTRY ORDERABLE S Final Result Performing Organization Address [facility] de Phone Number [facility] [address] [place] [address], [place] * HEPATITIS B SURFACE ANTIBODY (HBSAB) (06/19/2025 8:20 AM CDT) HEPATITIS B SURFACE ANTIBODY <8.00 mIU/mL 06/19/2025 3:49 PM CDT [facility] Comment:Individual is consid ered not immune to HBV infection. Blood No Phlebotomy Charged / Unknown 06/19/2025 8:20 AM CDT 06/19/2025 9:22 AM CDT us Belle L Behrends TRANSMISSION SUPERINTENDENT, SALES ADMINISTRATION MANAGER CHEMISTRY ORDERABLE S Final Result [facility] [address] [place] [address], [place] from Last 3 Months
--- OUTSIDE RECORDS SUMMARY | 2025-06-20 08:22 | XMS_ITS | Encounter Summary ---
Author Organization [facility] Care Team Providers Care Human Factors Advisor Lead Name Role Phone Unavailable Primary Care Provider Unavailabl e Encounter Details Date Type Department Care Team (Latest Contact Info) Description 06/19/2025 Travel Social History Tobacco Use Types Packs/Day Years Used Date Smoking Tobacco: Never Assessed Comments Unknown Sex and Gender Information Value Date Recorded Sex Assigned at Not on file Legal Sex Female 8:30 AM CDT Gender Identity Not on file Sexual Orientation Not on file documented as of this encounter Plan of Treatment Not on file documented as of this encounter Visit Diagnoses Not on filedocumented in this encounter
--- OUTSIDE RECORDS SUMMARY | 2025-06-20 08:23 | XMS_ITS | Clinical Summary ---
Author Organization [facility] Medical Office Building B Address [address] [place] [address] Care Team Providers Care Wide Area Network Administrator Name Role Phone Unknown, Notinfile Primary Care Provider Unavail able Kasey Xiao MD Unavailable Allergies Active Allergy Reactions Criticality Noted Date Comments Erythromycin Nausea only,Shortnes s of breath,Unknown,Nausea And Vomiting High 03/28/2017 Medications valACYclovir (VALTREX) 1 gram tablet 3 Active ondansetron ODT (ZOFRAN-ODT) 4 mg disintegrating tabletIndications:A bdominal pain, epigastric Take 1 tablet (4 mg total) by mouth every 8 (eight) hours as needed for vomiting or nausea 20 tablet 5 Active Active Problems Problem Noted Date Diagnosed Date ADD (attention deficit disorder) 03/11/2025 Cervical cancer screening 05/12/2023 Overview (05/12/2023): 05/01/23 - Pap negative Well woman exam with routine gynecological exam 05/01/2023 Assessment & Plan (05/01/2023 11:25 AM CDT): Pap smear performed. Recommend self-breast exam. A year long prescription for OCP was sent to her pharmacy. She declines any STD testing. Follow up 1 year. 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 Positive pregnan cy test only. 01/2025 SAB. Positive test only. Last Filed Vital Signs Vital Sign Reading Time Taken Comments Blood Pressure 100/68 03/11/2025 9:58 AM CDT Pulse 66 03/11/2025 9:58 AM CDT Temperature 36.6 C (97.9 F) 03/11/2025 9:58 AM CDT Respiratory Rate 20 03/11/2025 9:58 AM CDT Oxygen Saturation 99% 03/11/2025 9:58 AM CDT Inhaled Oxygen Concentration - - Weight 63 kg (139 lb) 03/11/2025 9:58 AM CDT Height 175.3 cm (5' 9) 03/11/2025 9:58 AM CDT Body Mass Index 20.53 03/11/2025 9:58 AM CDT Plan of Treatment Health Maintenance Due Date Last Done Comments Depression Screening 1995 Hepatitis C Screening 1995 DTaP/Tdap/Td Vaccine (1 - Tdap) 2005 Varicella Vaccines (1 of 2 - 13+ 2-dose series) 2007 Hepatitis B Screening 2012 HPV Vaccines (1 - 3-dose SCDM series) 2021 Cervical Cancer Screening 05/01/2024 05/01/2023, Regular Well Visit/Exam 18-64 05/01/2024 05/01/2023 Covid-19 Vaccine (2 - 2024- season) 2025 02/16/2021 Influenza Vaccine (#1) 2025 2, 05/27/2021, 06/02/2020, Additional history exists Pneumococcal vaccine <65 Aged Out No longer eligible based on patient's age to complete this topic Procedures Procedure Name Priority Date/Time Associated Diagnosis Comments T4, FREE Routine 05/28/2025 9:21 AM CDT T3, FREE Routine 05/28/2025 9:21 AM CDT TSH Routine 05/28/2025 9:21 AM CDT PAP WITH REFLEX TO HIGH RISK HPV Routine 05/01/2023 12:03 PM CDT Well woman exam with routine gynecological exam Special screening examination for human papillomavirus (HPV) Screening for malignant neoplasm of the cervix from Last 3 Months or Most Recently Relevant to Health Maintenance Results * T3, free (05/28/2025 9:21 AM CDT) Free T3 3.1 2.0 - 4.4 pg/mL Blood 05/28/2025 9:21 AM CDT 05/28/2025 10:40 AM CDT us China Collins MD LAB BLOOD ORDERABLES Fi nal Result RON[address]D [address] [facility] Department of [employer] [place] [address] * TSH (05/28/2025 9:21 AM CDT) Thyroid Stimulating Hormone 2.14 0.30 - 4.20 mcIUnit/mL Blood 05/28/2025 9:21 AM CDT 05/28/2025 10:40 AM CDT China Collins MD LAB BLOOD ORDERABLES Fi nal Result Performing Organization Address [facility] de Phone Number [address] [employer] [place] [address] * T4, free (05/28/2025 9:21 AM CDT) Free T4 0.95 0.90 - 1.70 ng/dL Blood 05/28/2025 9:21 AM CDT 05/28/2025 10:40 AM CDT China Collins MD LAB BLOOD ORDERABLES Fi nal Result Performing Organization Address [facility] de Phone Number [address] [address] * Pap with reflex to High Risk HPV and Genotyping (Cytology Component) (05/01/2023 12:03 PM CDT) Thin prep (Pap test) 05/01/2023 12:03 PM CDT 05/04/2023 5:33 PM CDT Narrative PATHOLOGY [facility] - 05/10/2023 10:35 AM CDT EPIC results best viewed via link to PDF [place] [address] [place], [place] [address] Tele: Michelle Terry MD - Ink Printer CYTOLOGY REPORT Note to Patients: This report [...] questions and explain the details. Patient Name: ROCIO ELIZABETH D. Address: [facility] [place] [address] Gender: F : 1995 (Age: 28) Service: Location: Hospital #: [id number] Patient Type: [facility] SPECIMEN Taken: 05/01/2023 Reported: 05/10/2023 Physician(s): Kasey [...] [facility]ICAL [facility]ENTER Laboratory Receiving [address] [place] [address] from Last 3 Months or Most Recently Relevant to Health Maintenance Insurance [employer] Address: [address] [place] [address] [employer] Address: [address] [place] [address] [employer] Address: [facility] [place] [facility] [address] [place] [address] Care Teams Wide Area Network Administrator Relationship Specialty Start Date End Date Unknown, Notinfile PCP - General 03/24/17 Kasey Xiao MD [address] [facility] [address] [place] [address] Consulting Physician Obstetrics and Gynecology 03/22/23
--- OUTSIDE RECORDS SUMMARY | 2025-06-20 08:23 | XMS_ITS | Encounter Summary ---
Author Organization [facility] Address [address] [place] [address] Phone Care Team Providers Care Mask Former Name Role Phone Unavailable Primary Care Provider Unavailabl e Encounter Details Date Type Department Care Team (Late st Contact Info) Description 06/19/2025 Lab Requisition [facility] Laboratory Services [address] [place] [address] Belle Haley, WAREHOUSE LOADER, KISS MIXER [address] [place] [address] Social History Tobacco Use Types Packs/Day Years Used Date Smoking Tobacco: Never Assessed Comments Unknown Sex and Gender Information Value Date Recorded Sex Assigned at Not on file Legal Sex Female 8:30 AM CDT Gender Identity Not on file Sexual Orientation Not on file documented as of this encounter Plan of Treatment Pending Results Name Type Priority Associated Diagnoses Date /Time QUANTIFERON-TB GOLD PLUS Lab Routine 06/19/2025 8:20 AM CDT documented as of this encounter Procedures Procedure Name Priority Date/Time Associated Diagnosis Comments MUMPS IGG Routine 06/19/2025 8:20 AM CDT RUBEOLA (MEASLES) IGG Routine 06/19/2025 8:20 AM CDT RUBELLA IMMUNITY IGG Routine 06/19/2025 8:20 AM CDT HEPATITIS B SURFACE ANTIBODY (HBSAB) Routine 06/19/2025 8:20 AM CDT documented in this encounter Results * RUBEOLA (MEASLES) IGG (06/19/2025 8:20 AM CDT) MEASLES AB IGG 1.1 >=1.1 AI 06/20/2025 2:28 AM CDT [facility] Blood No Phlebotomy Charged / Unknown 06/19/2025 8:20 AM CDT 06/19/2025 9:22 AM CDT Narrative [facility] - 06/20/2025 2:28 AM CDT <= 0.8 Negative. No detectable Measles IgG antibody. 0.9 - 1.0 Equivocal >=1.1 Positive Antibody testing was performed by multiplex flow immunoassay on the BioPlex platform. us Belle L Behrenoumar WAREHOUSE LOADER, KISS MIXER IMMUNOLOGY ORDERABL ES Final Result Performing Organization Address [facility] Co de Phone Number [facility] [address] [place] [address], [place] * RUBELLA IMMUNITY IGG (06/19/2025 8:20 AM CDT) RUBELLA IMMUNITY Immune Immune, Invalid 06/19/2025 4:20 PM CDT [facility] RUBELLA IGG QUANT 1.70 >=1.0 AI AI 06/19/2025 4:20 PM CDT [facility] Blood No Phlebotomy Charged / Unknown 06/19/2025 8:20 AM CDT 06/19/2025 9:22 AM CDT Narrative [facility] - 06/19/2025 4:20 PM CDT Antibody testing was performed by multiplex flow immunoassay on the BioPlex platform. us Belle L Behrends WAREHOUSE LOADER, KISS MIXER CHEMISTRY ORDERABLE S Final Result Performing Organization Address City/[facility] Co de Phone Number [facility] [address] [place] [address], [place] * MUMPS IGG (06/19/2025 8:20 AM CDT) Mumps Ab IgG 2.2 >=1.1 AI 06/19/2025 4:20 PM CDT [facility] Blood No Phlebotomy Charged / Unknown 06/19/2025 8:20 AM CDT 06/19/2025 9:22 AM CDT Narrative [facility] - 06/19/2025 4:20 PM CDT <= 0.8 Negative. No detectable Mumps IgG antibody. 0.9 - 1.0 Equivocal >=1.1 Positive Antibody testing was performed by multiplex flow immunoassay on the makeena platform. us Belle Haley APRN, KISS MIXER IMMUNOLOGY ORDERABL ES Final Result Performing Organization Address [facility] Co de Phone Number [facility] [address] [place] [address], [place] * HEPATITIS B SURFACE ANTIBODY (HBSAB) (06/19/2025 8:20 AM CDT) HEPATITIS B SURFACE ANTIBODY <8.00 mIU/mL 06/19/2025 3:49 PM CDT [facility] Comment:Individual is consid ered not immune to HBV infection. Blood No Phlebotomy Charged / Unknown 06/19/2025 8:20 AM CDT 06/19/2025 9:22 AM CDT us Belle Haley APRN, KISS MIXER CHEMISTRY ORDERABLE S Final Result Performing Organization Address [facility] Co de Phone Number [facility] [address] [place] [address], [place] documented in this encounter Visit Diagnoses Not on filedocumented in this encounter
--- OUTSIDE RECORDS SUMMARY | 2025-06-20 08:23 | XMS_ITS | Clinical Summary ---
Author Organization [facility] Address [address] [place] [address] Care Team Providers Care Workforce Advisor Name Role Phone Unavailable Primary Care Provider Unavailabl e Source Comments [facility],non-owned Affiliates and Associated Physician Practices is amultiple site organization consisting of ambulatory clinics and hospital sitesin [place], [place], [place] and [place]. This disclosure is being madepursuant to the Care Everywhere program and may not contain all information available regarding this patient. Last updated 18.[facility] Allergies Active Allergy Reactions Criticality Noted Date [...] of 3 - 19+ 3-dose series) 2013 HPV VACCINE (1 - 3-dose SCDM series) 2021 DEPRESSION SCREENING 09/11/2024 COVID-19 VACCINE (2 - 2024- season) 2025 02/16/2021 INFLUENZA VACCINE (#1) 2025 , 05/27/2019, 06/27/2018, Additional history exists ZOSTER VACCINE [...] age to complete this topic Insurance [employer] [facility] Address: [facility] [id number] [place] [address]
--- OUTSIDE RECORDS SUMMARY | 2025-06-20 08:23 | XMS_ITS | Encounter Summary ---
Author Organization [facility] Address [address] [place] [address] Care Team Providers Care Bobbin Disker Name Role Phone AlconElvin perez Primary Care Provider [phone] Encounter Details Date Type Department Care Team (Late st Contact Info) Description 11/17/2017 Lab Requisition [facility] Laboratory Services S [facility] [address] [place] [address] [place] [address] [facility] [address] [place] [phone] Social History Tobacco Use Types Packs/Day Years Used Date Smoking Tobacco: Never Assessed Comments Unknown Sex and Gender Information Value Date Recorded Sex Assigned at Not on file Legal Sex Female 1:19 PM HANDLE FINISHER Gender Identity Not on file Sexual Orientation Not on file documented as of this encounter Plan of Treatment Not on file documented as of this encounter Procedures Procedure Name Priority Date/Time Associated Diagnosis Comments HEPATITIS B SURFACE AB, QUANT Routine 11/17/2017 1:30 PM HANDLE FINISHER VARICELLA ZOSTER IGG Routine 11/17/2017 1:30 PM HANDLE FINISHER documented in this encounter Results * (ABNORMAL) HEPATITIS B SURFACE AB, QUANT (11/17/2017 1:30 PM HANDLE FINISHER) HEPATITIS B SURF AB,QN <4.0 mlU/mL 11/17/2017 9:55 PM HANDLE FINISHER [facility] HEPATITIS B SURFACE AB INTERP Non-reacti ve(A) See Interp 11/17/2017 9:55 PM HANDLE FINISHER [facility] Blood Collection / Unknown 11/17/2017 1:30 PM HANDLE FINISHER 11/17/2017 8:26 PM HANDLE FINISHER Narrative [facility] - 11/17/2017 9:55 PM HANDLE FINISHER Patient does not have immunity to Hepatitis B virus. This assay is used to determine immune status to Hepatitis B as greater than or equal to 10 mIU/mL as per CDC guidelines (MMWR:vol 55: RR-16, 2006). Jun Gloria MD CHEMISTRY ORDERABLES Final R esult [facility] CLIA# [id number] [address] [place] [address] * VARICELLA ZOSTER IGG (11/17/2017 1:30 PM HANDLE FINISHER) VZV IGG Positive 11/21/2017 2:35 PM CDT [facility] Comment: Results suggest response to immunization or prior exposure to the virus. REFERENCE VALUE Vaccinated: Positive (>=1.1 AI) Unvaccinated: Negative (<=0.8 AI) VARICELLA IGG INDEX 2.4 11/21/2017 2:35 PM CDT [facility] Comment: Test Performed by: [facility] [address] [place] [address] Blood Collection / Unknown 11/17/2017 1:30 PM HANDLE FINISHER 11/17/2017 8:26 PM HANDLE FINISHER Jun Gloria MD CHEMISTRY ORDERABLES Final R esult [facility] documented in this encounter Visit Diagnoses Not on filedocumented in this encounter Care Teams Bobbin Disker Relationship Specialty Start Date End Date Elvin Reyes DO [address] [place] [place], [place] [phone] PCP - General Internal Medicine 10/15/18 documented as of this encounter
--- OUTSIDE RECORDS SUMMARY | 2025-06-20 08:23 | XMS_ITS | Clinical Summary ---
Author Organization [facility] Address [address] [place] [address] Phone Care Team Providers Care Brick Offbearer Name Role Phone AlconElvin perez Primary Care Provider [phone] Allergies Active Allergy Reactions Criticality Noted Date [...] on file Legal Sex Female 1:19 PM PROJECT MANAGEMENT DIRECTOR Gender Identity Not on file Sexual [...] 19+ 3-dose series) 2013 HPV/Cotest (21-29) 2015 HPV/Cotest (30-65) 2024 Preventative Visit- Commercial 09/11/2024 0 05/04/2022, 12/30/2020, 10/03/2019, Additional history exists INFLUENZA VACCINE (#1) 2025 0, 05/27/2019, 06/27/2018 CERVICAL CANCER SCREENING 05/04/2025 PAP SMEAR 05/04/2025 [...] PAP (05/04/2022 1:01 PM CDT) COMMENT (PAP): [facility] Comment: This order for age-based cervical cancer and STI screening follows ACOG guidelines(PB 168, 140, IJV054). See individual assays for performing site location. [...] has been evaluated with computer assisted technology. GLASS EDGER: Frederick Oro Comment: CRESPO, CT(ASCP) CT Screening location: [facility] Administration [place] [address] [facility] Comment: [...] and current clinical information. Test Performed at: [place] [address] [address] [place] [address] Lauryn-Radha Thi Vo Genital SWAB OF ENDOCERVIX / Unknown 05/04/2022 1:01 PM CDT 05/04/2022 8:59 PM CDT us July Jaffe DO PATHOLOGY/CYTOLOGY ORDERABLES Fi nal Result [facility] [phone] [address] [address] [address] [address] [place] [address] from Last 3 Months or Most Recently [...] Type:RX Commercial Address: [place] Care Teams Brick Offbearer Relationship Specialty Start Date End Date Elvin Reyes DO [address] [facility] [address] [place] [phone] PCP - General Internal Medicine 10/15/18
[2025-06-20 09:57] LABS: Beta HCG Quantitative 10.73 mIU/ML
[2025-06-20 10:00] LABS: Free T3 6.41 pg/mL (2.32-6.09); Free T4 Free Thyroxine 1.18 ng/dL (0.78-2.19)
[2025-06-20 10:11] LABS: Thyroid Stimulating Hormone 1.940 uIU/mL (0.465-4.680)
== END 2025-06-20 08:17 | disposition home or self-care (01) ==
PROVIDERS: Visit Provider Obstetrics & Gynecology
DX: E03.9 Hypothyroidism, unspecified (principal); N91.2 Amenorrhea, unspecified
CPT/HCPCS: 36415; 84439; 84443; 84481; 84702

== ENCOUNTER 2025-06-23 08:51 | Outpatient (CLI) | payer OTHER, SELFPAY ==
--- OUTSIDE RECORDS SUMMARY | 2025-06-23 09:13 | XMS_ITS | Encounter Summary ---
Author Organization [facility] Address [address] [place] [address] Care Team Providers Care Corporate Technical Recruiter Name Role Phone AlconElvin perez Primary Care Provider [phone] Encounter Details Date Type Department Care Team (Late st Contact Info) Description 11/17/2017 Lab Requisition [facility] Laboratory Services S [facility] [address] [place] [address] [place] [address] [facility] [address] [place] [address] Social History Tobacco Use Types Packs/Day Years Used Date Smoking Tobacco: Never Assessed Comments Unknown Sex and Gender Information Value Date Recorded Sex Assigned at Not on file Legal Sex Female 1:19 PM TANK CARPENTER Gender Identity Not on file Sexual Orientation Not on file documented as of this encounter Plan of Treatment Not on file documented as of this encounter Procedures Procedure Name Priority Date/Time Associated Diagnosis Comments HEPATITIS B SURFACE AB, QUANT Routine 11/17/2017 1:30 PM TANK CARPENTER VARICELLA ZOSTER IGG Routine 11/17/2017 1:30 PM TANK CARPENTER documented in this encounter Results * (ABNORMAL) HEPATITIS B SURFACE AB, QUANT (11/17/2017 1:30 PM TANK CARPENTER) HEPATITIS B SURF AB,QN <4.0 mlU/mL 11/17/2017 9:55 PM TANK CARPENTER [facility] [email or web address] [facility] HEPATITIS B SURFACE AB INTERP Non-reacti ve(A) See Interp 11/17/2017 9:55 PM TANK CARPENTER [facility] Blood Collection / Unknown 11/17/2017 1:30 PM TANK CARPENTER 11/17/2017 8:26 PM TANK CARPENTER Narrative [facility] - 11/17/2017 9:55 PM TANK CARPENTER Patient does not have immunity to Hepatitis B virus. This assay is used to determine immune status to Hepatitis B as greater than or equal to 10 mIU/mL as per CDC guidelines (MMWR:vol 55: RR-16, 2006). Jun Gloria MD CHEMISTRY ORDERABLES Final R esult [facility] CLIA# [id number] [address] [place] [address] * VARICELLA ZOSTER IGG (11/17/2017 1:30 PM TANK CARPENTER) VZV IGG Positive 11/21/2017 2:35 PM CDT [facility] Comment: Results suggest response to immunization or prior exposure to the virus. REFERENCE VALUE Vaccinated: Positive (>=1.1 AI) Unvaccinated: Negative (<=0.8 AI) VARICELLA IGG INDEX 2.4 11/21/2017 2:35 PM CDT [facility] Comment: Test Performed by: [facility] [address] [place] [address] Blood Collection / Unknown 11/17/2017 1:30 PM TANK CARPENTER 11/17/2017 8:26 PM TANK CARPENTER Jun Gloria MD CHEMISTRY ORDERABLES Final R esult [facility] documented in this encounter Visit Diagnoses Not on filedocumented in this encounter Care Teams Corporate Technical Recruiter Relationship Specialty Start Date End Date Elvin Reyes DO [address] [place] [address] [place], [place] [phone] PCP - General Internal Medicine 10/15/18 documented as of this encounter
--- OUTSIDE RECORDS SUMMARY | 2025-06-23 09:13 | XMS_ITS | Clinical Summary ---
Author Organization [facility] Address [address] [place] [address] Care Team Providers Care Tire Building Supervisor Name Role Phone Unavailable Primary Care Provider Unavailabl e Source Comments [facility],non-owned Affiliates and Associated Physician Practices is amultiple site organization consisting of ambulatory clinics and hospital sitesin [place], [place], [place] and [place]. This disclosure is being madepursuant to the Care Everywhere program and may not contain all information available regarding this patient. Last updated 18.[facility] Allergies Active Allergy Reactions Criticality Noted Date [...] age to complete this topic Insurance [employer]NA [facility] Address: [facility] [id number] [place] [address]
--- OUTSIDE RECORDS SUMMARY | 2025-06-23 09:13 | XMS_ITS | Clinical Summary ---
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 Gender Identity Not on file Sexual Orientation [...] LAB BLOOD ORDERABLES Fi nal Result [address]D [address] [facility] [place] [address] * TSH (05/28/2025 9:21 AM CDT) Thyroid Stimulating Hormone 2.14 0.30 - 4.20 mcIUnit/mL Blood 05/28/2025 9:21 AM CDT 05/28/2025 10:40 AM CDT China Collins MD LAB BLOOD ORDERABLES Fi nal Result Performing Organization Address [facility] de Phone Number [address] [place] [address] * T4, free (05/28/2025 9:21 AM CDT) Free T4 0.95 0.90 - 1.70 ng/dL Blood 05/28/2025 9:21 AM CDT 05/28/2025 10:40 AM CDT China Collins MD LAB BLOOD ORDERABLES Fi nal Result Performing Organization Address [facility] de Phone Number [address] [address] * Pap with reflex to High Risk HPV and Genotyping (Cytology Component) (05/01/2023 12:03 PM CDT) Thin prep (Pap test) 05/01/2023 12:03 PM CDT 05/04/2023 5:33 PM CDT Narrative PATHOLOGY [facility] - 05/10/2023 10:35 AM CDT EPIC results best viewed via link to PDF [place] [id number] [place], [place] [address] Tele: Michelle Terry MD - Student Career Development Specialist CYTOLOGY REPORT Note to Patients: This report [...] details. Patient Name: ROCIO ELIZABETH D. Address: [facility] [place] [address] Gender: F : 1995 (Age: 28) Service: Location: Hospital #: [id number] Patient Type: [facility] SPECIMEN Taken: 05/01/2023 Reported: [...] MD LAB CYTOLOGY ORDERABLES Final Result PATHOLOGY [facility] Laboratory Receiving [address] [place] [address] from Last 3 Months or Most Recently Relevant to Health Maintenance Insurance [employer]IGNA C[employer]NA C[employer] Care Teams Conduit Installer Relationship Specialty Start Date End Date Unknown, Notinfile PCP - General 03/24/17 Kasey Xiao MD [address] [facility] [address] [place] [address] Consulting Physician Obstetrics and Gynecology 03/22/23
--- OUTSIDE RECORDS SUMMARY | 2025-06-23 09:13 | XMS_ITS | Clinical Summary ---
Author Organization [facility] Address [address] [place] [address] Phone Care Team Providers Care Document Control Coordinator Name Role Phone Unavailable Primary Care Provider Unavailabl e Encounters Date Type Department Care Team Description 06/19/2025 [facility] [address] [place] [address] Belle Haley APRN, CNP 06/19/2025 [...] IMMUNITY IGG Routine 06/19/2025 8:20 AM CDT QUANTIFERON-TB GOLD PLUS Routine 06/19/2025 8:20 AM CDT MUMPS IGG Routine 06/19/2025 8:20 AM CDT HEPATITIS B SURFACE ANTIBODY (HBSAB) Routine 06/19/2025 8:20 AM CDT from Last 3 Months Results * QUANTIFERON-TB GOLD PLUS (06/19/2025 8:20 AM CDT) NIL CONTROL 0.02 <8.01 IU/mL 06/22/2025 8:42 AM CDT [facility] TB ANTIGEN 1 0.02 <0.35 IU/mL 06/22/2025 8:42 AM CDT [facility] TB ANTIGEN 2 0.01 <0.35 IU/mL 06/22/2025 8:42 AM CDT [facility] MITOGEN CONTROL 9.98 >0.49 IU/mL 06/22/20 8:42 AM CDT [facility] INTEPRETATION TB NEGATIVE NEGATIVE, NEGATIVE (TB antigen response less than 25% of internal negative control value) 06/22/2025 8:42 AM CDT [facility] Comment:No immune response t o Mycobacterium tuberculosis antigens was noted. M. tuberculosis infection unlikely. Blood No Phlebotomy Charged / Unknown 06/19/2025 8:20 AM CDT 06/19/2025 9:22 AM CDT Narrative [facility] - 06/22/2025 8:42 AM CDT A POSITIVE QUANTIFERON-TB GOLD PLUS RESULT SHOULD NOT BE THE SOLE OR DEFINITIVE BASIS FOR DETERMINING INFECTION WITH M.TUBERCULOSIS. Diagnosing or excluding tuberculosis disease, and assessing the probability of LTBI, requires a combination of epidemiological, historical, medical and diagnostic findings (e.g., acid fast bacilli (AFB) smear and culture, chest xray) that should be taken into account when interpreting QFT-Plus results. Furthermore, the magnitude of the measured gamma interferon level cannot be correlated to stage or degree of infection, level of immune responsiveness, or likelihood for progression to active disease. The Nil control adjusts for background (e.g., elevated levels of circulating gamma interferon or presence of heterophile antibodies). The Mitogen control serves as an internal positive control and verifies each specimen tested can produce a gamma interferon response. Low mitogen may occur with insufficient lymphocytes, reduced lymphocyte activity due to improper specimen handling, filling/mixing of the mitogen tube, or inability of the patient's lymphocytes to generate gamma interferon. Infection with other Mycobacteria, including M. kansasii, M. szulgai, and M. marinum, may cause false positive results. A negative QuantiFERON-TB Gold Plus result does not preclude the possibility of M. tuberculosis infection or tuberculosis disease: false negative results can be due to incorrect blood sample collection/ improper handling of the specimen, stage of infection (e.g., specimen obtained prior to the development of cellular immune response), co-morbid conditions which affect immune function, or other individual immunological factors. The minimum number of lymphocytes required for a reliable test has not been established and may also be variable. Diagnostic testing for Mycobacterium tuberculosis using Interferon Gamma Release Assays should follow applicable published guidelines, including when testing in populations such as children, women, and HIV-infected or otherwise immunocompromised individuals. https://www.cdc.gov/tb/publications/guidelines/testing.htm us Belle Haley REAL ESTATE TRANSACTION COORDINATOR, DEHYDRATING PRESS OPERATOR IMMUNOLOGY ORDERABL ES Final Result [facility] [address] [place] [address], * MUMPS IGG (06/19/2025 8:20 AM CDT) Mumps Ab IgG 2.2 >=1.1 AI 06/19/2025 4:20 PM CDT [facility] Blood No Phlebotomy Charged / Unknown 06/19/2025 8:20 AM CDT 06/19/2025 9:22 AM CDT Narrative [facility] - 06/19/2025 4:20 PM CDT <= 0.8 Negative. No detectable Mumps IgG antibody. 0.9 - 1.0 Equivocal >=1.1 Positive Antibody testing was performed by multiplex flow immunoassay on the BioPlex platform. Belle L Behrends REAL ESTATE TRANSACTION COORDINATOR, DEHYDRATING PRESS OPERATOR IMMUNOLOGY ORDERABL ES Final Result Performing Organization Address [facility] Co de Phone Number [facility] [address] [place] [address], [place] * RUBEOLA (MEASLES) IGG (06/19/2025 8:20 AM CDT) MEASLES AB IGG 1.1 >=1.1 AI 06/20/2025 2:28 AM CDT [facility] Blood No Phlebotomy Charged / Unknown 06/19/2025 8:20 AM CDT 06/19/2025 9:22 AM CDT Narrative [facility] - 06/20/2025 2:28 AM CDT <= 0.8 Negative. No detectable Measles IgG antibody. 0.9 - 1.0 Equivocal >=1.1 Positive Antibody testing was performed by multiplex flow immunoassay on the BioPlex platform. Belle L Behrends REAL ESTATE TRANSACTION COORDINATOR, DEHYDRATING PRESS OPERATOR IMMUNOLOGY ORDERABL ES Final Result Performing Organization Address City/[facility] Co de Phone Number [facility] [address] [place] [address], [place] * RUBELLA IMMUNITY IGG (06/19/2025 8:20 AM CDT) RUBELLA IMMUNITY Immune Immune, Invalid 06/19/2025 4:20 PM CDT [facility] RUBELLA IGG QUANT 1.70 >=1.0 AI AI 06/19/2025 4:20 PM CDT [facility] Blood No Phlebotomy Charged / Unknown 06/19/2025 8:20 AM CDT 06/19/2025 9:22 AM CDT Narrative [facility] - 06/19/2025 4:20 PM CDT Antibody testing was performed by multiplex flow immunoassay on the CardShark Poker Productslex platform. us Belle Dylan Behjorge REAL ESTATE TRANSACTION COORDINATOR, DEHYDRATING PRESS OPERATOR CHEMISTRY ORDERABLE S Final Result Performing Organization Address City/[facility]/ZIP Co de Phone Number [facility] [address] [place] [address], [place] * HEPATITIS B SURFACE ANTIBODY (HBSAB) (06/19/2025 8:20 AM CDT) HEPATITIS B SURFACE ANTIBODY <8.00 mIU/mL 06/19/2025 3:49 PM CDT [facility] Comment:Individual is consid ered not immune to HBV infection. Blood No Phlebotomy Charged / Unknown 06/19/2025 8:20 AM CDT 06/19/2025 9:22 AM CDT us Belle Dylan Behrends REAL ESTATE TRANSACTION COORDINATOR, DEHYDRATING PRESS OPERATOR CHEMISTRY ORDERABLE S Final Result Performing Organization Address City/[facility]/ZIP Co de Phone Number [facility] [address] [place] [address], [place] from Last 3 Months
--- OUTSIDE RECORDS SUMMARY | 2025-06-23 09:13 | XMS_ITS | Clinical Summary ---
Author Organization [facility] Address [address] [place] [address] Phone Care Team Providers Care Workers' Compensation Mediator Name Role Phone AlconElvin perez Primary Care Provider [phone] Allergies Active Allergy Reactions Criticality Noted Date [...] on file Legal Sex Female 1:19 PM ADULT NURSE PRACTITIONER Gender Identity Not on file Sexual Orientation [...] PAP (05/04/2022 1:01 PM CDT) COMMENT (PAP): [facility] Comment: This order for age-based cervical cancer and STI screening follows ACOG guidelines(PB 168, 140, RVZ731). See individual assays for performing site location. CLINICAL INFORMATION Anaid Oor Comment:Information not prov ided LAST MENSTRUAL PERIOD [...] has been evaluated with computer assisted technology. LOKIE DRIVER: Frederick Oro Comment: CRESPO, CT(ASCP) CT Screening location: [facility] Administration [place] [address] [facility] Comment: [...] and current clinical information. Test Performed at: [place] [address] [address] [place] [address] Lauryn-Radha Thi Vo Genital SWAB OF ENDOCERVIX / Unknown 05/04/2022 1:01 PM CDT 05/04/2022 8:59 PM CDT us July Jaffe DO PATHOLOGY/CYTOLOGY ORDERABLES Fi nal Result [facility] [phone] [place] [address] [address] [place] [address] from Last 3 Months or Most Recently Relevant to Health Maintenance Insurance [employer] OPEN CHOICE PPO Member Subscriber Plan / Payer (Ef fective 2021-Present) Name:Elizabeth Bond Relation to Subscriber:Self Name:Elizabeth Bond Payer ID:[id number] ([facility]) Type:PPO Address: [facility] [address] [place] [address] BLUE ACCESS Member Subscriber Plan / Payer (Ef fective 2014-Present) Name:Elizabeth Bond Relation to Subscriber:Self Name:Elizabeth Bond Payer ID:[id number] ([facility]) Type:CoffeeTable Address: [facility] [address] [place] [address] RX MEDIMPACT Member Subscriber Plan / Payer (Ef fective for All Dates) Name:Elizabeth Bond Relation to Subscriber:Self Name:Elizabeth Bond Payer ID:Not on file Group ID:[id number] Type:RX Commercial Address: [place] RX MEDIMPACT Member Subscriber Plan / Payer (Ef fective for All Dates) Name:DerekCyndi limatheresa Rae Relation to Subscriber:Self Name:Elizabeth Bond Payer ID:Not on file Group ID:[id number] Type:RX Commercial Address: [place] Care Teams Workers' Compensation Mediator Relationship Specialty Start Date End Date Elvin Reyes DO [address] [facility] [address] [place] [phone] PCP - General Internal Medicine 10/15/18
--- OUTSIDE RECORDS SUMMARY | 2025-06-23 09:13 | XMS_ITS | Encounter Summary ---
Author Organization [facility] Address [address] [place] [address] Phone Care Team Providers Care Ladle Mechanic Name Role Phone Unavailable Primary Care Provider Unavailabl e Encounter Details Date Type Department Care Team (Late st Contact Info) Description 06/19/2025 Lab Requisition [facility] Laboratory Services [address] [place] [address] Belle Haley, FLASH RANGING CREWMEMBER, FILTER PRESS SUPERVISOR [address] [place] [address] Social History Tobacco Use Types [...] Procedure Name Priority Date/Time Associated Diagnosis Comments QUANTIFERON-TB GOLD PLUS Routine 06/19/2025 8:20 AM [...] 1.1 >=1.1 AI 06/20/2025 2:28 AM CDT [facility] Blood No Phlebotomy Charged / Unknown 06/19/2025 8:20 AM CDT 06/19/2025 9:22 AM CDT Narrative [facility] - 06/20/2025 2:28 AM CDT <= 0.8 Negative. No detectable Measles IgG antibody. 0.9 - 1.0 Equivocal >=1.1 Positive Antibody testing was performed by multiplex flow immunoassay on the BioPlex platform. us Belle L Behrenoumar FLASH RANGING CREWMEMBER, FILTER PRESS SUPERVISOR IMMUNOLOGY ORDERABL ES Final Result Performing Organization Address [facility] Co de Phone Number [facility] [address] [place] [address], [place] * RUBELLA IMMUNITY IGG (06/19/2025 8:20 AM CDT) Pathologist [facility] RUBELLA IMMUNITY Immune Immune, Invalid 06/19/2025 4:20 PM CDT [facility] RUBELLA IGG QUANT 1.70 >=1.0 AI AI 06/19/2025 4:20 PM CDT [facility] Blood No Phlebotomy Charged / Unknown 06/19/2025 8:20 AM CDT 06/19/2025 9:22 AM CDT Narrative [facility] - 06/19/2025 4:20 PM CDT Antibody testing was performed by multiplex flow immunoassay on the BioPlex platform. us Belle L Behrends FLASH RANGING CREWMEMBER, FILTER PRESS SUPERVISOR CHEMISTRY ORDERABLE S Final Result Performing Organization Address City/[facility] Co de Phone Number [facility] [address] [place] [address], [place] * QUANTIFERON-TB GOLD PLUS (06/19/2025 8:20 AM CDT) NIL CONTROL 0.02 <8.01 IU/mL 06/22/2025 8:42 AM CDT [facility] TB ANTIGEN 1 0.02 <0.35 IU/mL 06/22/2025 8:42 AM CDT [facility] TB ANTIGEN 2 0.01 <0.35 IU/mL 06/22/2025 8:42 AM CDT [facility] MITOGEN CONTROL 9.98 >0.49 IU/mL 06/22/20 8:42 AM CDT [facility] INTEPRETATION TB NEGATIVE NEGATIVE, NEGATIVE (TB antigen response less than 25% of internal negative control value) 06/22/2025 8:42 AM CDT [facility] Comment:No immune response t o Mycobacterium tuberculosis antigens was noted. M. tuberculosis infection unlikely. Blood No Phlebotomy Charged / Unknown 06/19/2025 8:20 AM CDT 06/19/2025 9:22 AM CDT Narrative [facility] - 06/22/2025 8:42 AM CDT A [...] and HIV-infected or otherwise immunocompromised individuals. https://www.cdc.gov/tb/publications/guidelines/testing.htm Belle L Behrends FLASH RANGING CREWMEMBER, FILTER PRESS SUPERVISOR IMMUNOLOGY ORDERABL ES Final Result Performing Organization Address City/[facility] Co de Phone Number [facility] [address] [place] [address], [place] * MUMPS IGG (06/19/2025 8:20 AM CDT) Mumps Ab IgG 2.2 >=1.1 AI 06/19/2025 4:20 PM CDT [facility] Blood No Phlebotomy Charged / Unknown 06/19/2025 8:20 AM CDT 06/19/2025 9:22 AM CDT Narrative [facility] - 06/19/2025 4:20 PM CDT <= 0.8 Negative. No detectable Mumps IgG antibody. 0.9 - 1.0 Equivocal >=1.1 Positive Antibody testing was performed by multiplex flow immunoassay on the Blowtorch platform. Belle L Behrends FLASH RANGING CREWMEMBER, FILTER PRESS SUPERVISOR IMMUNOLOGY ORDERABL ES Final Result Performing Organization Address City/[facility] Co de Phone Number [facility] [address] [place] [address], [place] * HEPATITIS B SURFACE ANTIBODY (HBSAB) (06/19/2025 8:20 AM CDT) HEPATITIS B SURFACE ANTIBODY <8.00 mIU/mL 06/19/2025 3:49 PM CDT [facility] Comment:Individual is consid ered not immune to HBV infection. Blood No Phlebotomy Charged / Unknown 06/19/2025 8:20 AM CDT 06/19/2025 9:22 AM CDT us Belle Haley FLASH RANGING CREWMEMBER, QUOC CHEMISTRY ORDERABLE S Final Result [facility] [address] [place] [address], [place] documented in this encounter Visit Diagnoses Not on filedocumented in this encounter
[2025-06-23 10:52] LABS: Beta HCG Quantitative 103.61 mIU/ML
== END 2025-06-23 08:52 | disposition home or self-care (01) ==
LOC: ANHLAB 08:53
PROVIDERS: Visit Provider Obstetrics & Gynecology
DX: N92.6 Irregular menstruation, unspecified (principal)
CPT/HCPCS: 36415; 84144; 84702

== ENCOUNTER 2025-06-25 09:30 | Outpatient (CLI) | payer OTHER, SELFPAY ==
--- OUTSIDE RECORDS SUMMARY | 2025-06-25 10:41 | XMS_ITS | Encounter Summary ---
Author Organization [employer] | [employer] Address [address] [place] [address] Care Team Providers Care Road Freight Brake Coupler Name Role Phone AlconElvin perez Primary Care Provider [phone] Encounter Details Date Type Department Care Team (Late st Contact Info) Description 11/17/2017 Lab Requisition [facility] Laboratory Services S [facility] [address] [place] [address] [place] [address] [facility] [address] [place] [address] Social History Tobacco Use Types Packs/Day Years Used Date Smoking Tobacco: Never Assessed Comments Unknown Sex and Gender Information Value Date Recorded Sex Assigned at Not on file Legal Sex Female 1:19 PM GROCERY CLERK CHECKING Gender Identity Not on file Sexual Orientation Not on file documented as of this encounter Plan of Treatment Not on file documented as of this encounter Procedures Procedure Name Priority Date/Time Associated Diagnosis Comments HEPATITIS B SURFACE AB, QUANT Routine 11/17/2017 1:30 PM GROCERY CLERK CHECKING VARICELLA ZOSTER IGG Routine 11/17/2017 1:30 PM GROCERY CLERK CHECKING documented in this encounter Results * (ABNORMAL) HEPATITIS B SURFACE AB, QUANT (11/17/2017 1:30 PM GROCERY CLERK CHECKING) HEPATITIS B SURF AB,QN <4.0 mlU/mL 11/17/2017 9:55 PM GROCERY CLERK CHECKING [facility] [employer] [facility] HEPATITIS B SURFACE AB INTERP Non-reacti ve(A) See Interp 11/17/2017 9:55 PM GROCERY CLERK CHECKING [facility] Blood Collection / Unknown 11/17/2017 1:30 PM GROCERY CLERK CHECKING 11/17/2017 8:26 PM GROCERY CLERK CHECKING Narrative [facility] - 11/17/2017 9:55 PM GROCERY CLERK CHECKING Patient does not have immunity to Hepatitis B virus. This assay is used to determine immune status to Hepatitis B as greater than or equal to 10 mIU/mL as per CDC guidelines (MMWR:vol 55: RR-16, 2006). Jun Gloria MD CHEMISTRY ORDERABLES Final R esult [facility] CLIA# [id number] [address] [place] [address] * VARICELLA ZOSTER IGG (11/17/2017 1:30 PM GROCERY CLERK CHECKING) VZV IGG Positive 11/21/2017 2:35 PM CDT [facility] Comment: Results suggest response to immunization or prior exposure to the virus. REFERENCE VALUE Vaccinated: Positive (>=1.1 AI) Unvaccinated: Negative (<=0.8 AI) VARICELLA IGG INDEX 2.4 11/21/2017 2:35 PM CDT [facility] Comment: Test Performed by: [facility] [address] [place] [address] Blood Collection / Unknown 11/17/2017 1:30 PM GROCERY CLERK CHECKING 11/17/2017 8:26 PM GROCERY CLERK CHECKING Jun Gloria MD CHEMISTRY ORDERABLES Final R esult [facility] documented in this encounter Visit Diagnoses Not on filedocumented in this encounter Care Teams Road Freight Brake Coupler Relationship Specialty Start Date End Date Elvin Reyes DO [address] [place] [address] [place], [place] [phone] PCP - General Internal Medicine 10/15/18 documented as of this encounter"
--- OUTSIDE RECORDS SUMMARY | 2025-06-25 10:41 | XMS_ITS | Clinical Summary ---
Author Organization [facility] Medical Office Building B Address [address] [place] [address] Care Team Providers Care Marking Stitcher Name Role Phone Unknown, Notinfile Primary Care Provider Unavail able Kaesy Xiao MD Unavailable Allergies Active Allergy Reactions [...] Team Description 05/28/2025 9:15 AM CDT Lab [address] [address] from Last 3 Months Surgical History Surgery Date Site/Laterality Comments TONSILLECTOMY AND ADENOIDECTOMY Medical History Medical History Date Comments [place] teeth extracted 2010 Ovarian cyst Family History [...] on file Legal Sex Female 9:08 AM OPTICAL GOODS WORKER Gender Identity Not on file Sexual Orientation [...] LAB BLOOD ORDERABLES Fi nal Result [facility] [address] [facility] [address] [facility] [address] [place] [address] * TSH (05/28/2025 9:21 AM CDT) Thyroid Stimulating Hormone 2.14 0.30 - 4.20 mcIUnit/mL Blood 05/28/2025 9:21 AM CDT 05/28/2025 10:40 AM CDT China Collins MD LAB BLOOD ORDERABLES Fi nal Result Performing Organization Address [facility] de Phone Number [address] [place] [address] * T4, free (05/28/2025 9:21 AM CDT) Free T4 0.95 0.90 - 1.70 ng/dL Blood 05/28/2025 9:21 AM CDT 05/28/2025 10:40 AM CDT China Collins MD LAB BLOOD ORDERABLES Fi nal Result Performing Organization Address [facility] de Phone Number [address] [address] * Pap with reflex to High Risk HPV and Genotyping (Cytology Component) (05/01/2023 12:03 PM CDT) Thin prep (Pap test) 05/01/2023 12:03 PM CDT 05/04/2023 5:33 PM CDT Narrative PATHOLOGY [facility] - 05/10/2023 10:35 AM CDT EPIC results best viewed via link to PDF [place] [address] [place], [place] [address] Tele: Michelle Terry MD - Welfare Case Worker CYTOLOGY REPORT Note to Patients: This [...] details. Patient Name: ROCIO ELIZABETH D. Address: [facility] [place] [address] Gender: F : 1995 (Age: 28) Service: Location: Hospital #: [id number] Patient [place] [facility] Taken: 05/01/2023 Reported: [...] MD LAB CYTOLOGY ORDERABLES Final Result PATHOLOGY [facility] Laboratory Receiving [address] [place] [address] from Last 3 Months or Most Recently Relevant to Health Maintenance Insurance CIGNA CIGNA CIGNA Care Teams Marking Stitcher Relationship Specialty Start Date End Date Unknown, Notinfile PCP - General 03/24/17 Kasey Xiao MD [address] [facility] [address] [place] [address] Consulting Physician Obstetrics and Gynecology 03/22/23
--- OUTSIDE RECORDS SUMMARY | 2025-06-25 10:41 | XMS_ITS | Clinical Summary ---
Author Organization [facility] Address [address] [place] [address] Phone Care Team Providers Care Irish Moss Operator Name Role Phone AlconElvin perez Primary Care Provider [phone] Allergies Active Allergy Reactions Criticality Noted Date [...] on file Legal Sex Female 1:19 PM WELFARE WORKER Gender Identity Not on file Sexual [...] PAP (05/04/2022 1:01 PM CDT) COMMENT (PAP): [facility] Comment: This order for age-based cervical cancer and STI screening follows ACOG guidelines(PB 168, 140, QUP004). See individual assays for performing site location. [...] has been evaluated with computer assisted technology. FIELD ARTILLERY CANNONEER: Frederick Oro Comment: CRESPO, CT(ASCP) CT Screening location: [facility] Administration [place] [address] [address] [facility] Comment: [...] and current clinical information. Test Performed at: [facility] [place] [address] [address] [place] [phone] Lauryn-Radha Thi Vo Genital SWAB OF ENDOCERVIX / Unknown 05/04/2022 1:01 PM CDT 05/04/2022 8:59 PM CDT us July Jaffe DO PATHOLOGY/CYTOLOGY ORDERABLES Fi nal Result [facility] [phone] [facility] [address] [address] [place] [phone] from Last 3 Months or Most Recently [...] Type:RX Commercial Address: [place] Care Teams Irish Moss Operator Relationship Specialty Start Date End Date Elvin Reyes DO [address] [facility] [address] [place] [phone] PCP - General Internal Medicine 10/15/18
--- OUTSIDE RECORDS SUMMARY | 2025-06-25 10:41 | XMS_ITS | Clinical Summary ---
Author Organization [facility] Address [address] [place] [address] Phone Care Team Providers Care Branding Specialist Name Role Phone Unavailable Primary Care Provider Unavailabl e Encounters Date Type Department Care Team Description 06/19/2025 [facility] [address] [place] [address] Belle Haley APRN, CNP 06/19/2025 [...] 0.02 <8.01 IU/mL 06/22/2025 8:42 AM CDT [facility] TB ANTIGEN 1 0.02 <0.35 IU/mL 06/22/2025 8:42 AM CDT [facility] TB ANTIGEN 2 0.01 <0.35 IU/mL 06/22/2025 8:42 AM CDT [facility] MITOGEN CONTROL 9.98 >0.49 IU/mL 06/22/20 8:42 AM CDT [facility] INTEPRETATION TB NEGATIVE NEGATIVE, NEGATIVE (TB antigen response less than 25% of internal negative control value) 06/22/2025 8:42 AM CDT [facility] Comment:No immune response t o Mycobacterium tuberculosis antigens was noted. M. tuberculosis infection unlikely. Blood No Phlebotomy Charged / Unknown 06/19/2025 8:20 AM CDT 06/19/2025 9:22 AM CDT Narrative [facility] - 06/22/2025 8:42 AM CDT A POSITIVE [...] otherwise immunocompromised individuals. https://www.cdc.gov/tb/publications/guidelines/testing.htm us Belle Haley GAS ENGINE MECHANIC, MARINE STRUCTURAL DESIGNER IMMUNOLOGY ORDERABL ES Final Result [facility] [address] [place] [address], * MUMPS IGG (06/19/2025 8:20 AM CDT) Mumps Ab IgG 2.2 >=1.1 AI 06/19/2025 4:20 PM CDT [facility] Blood No Phlebotomy Charged / Unknown 06/19/2025 8:20 AM CDT 06/19/2025 9:22 AM CDT Narrative [facility] - 06/19/2025 4:20 PM CDT <= 0.8 Negative. No detectable Mumps IgG antibody. 0.9 - 1.0 Equivocal >=1.1 Positive Antibody testing was performed by multiplex flow immunoassay on the BioPlex platform. Belle L Behrends GAS ENGINE MECHANIC, MARINE STRUCTURAL DESIGNER IMMUNOLOGY ORDERABL ES Final Result Performing Organization Address [facility] Co de Phone Number [facility] [address] [place] [address], [place] * RUBEOLA (MEASLES) IGG (06/19/2025 8:20 AM CDT) MEASLES AB IGG 1.1 >=1.1 AI 06/20/2025 2:28 AM CDT [facility] Blood No Phlebotomy Charged / Unknown 06/19/2025 8:20 AM CDT 06/19/2025 9:22 AM CDT Narrative [facility] - 06/20/2025 2:28 AM CDT <= 0.8 Negative. No detectable Measles IgG antibody. 0.9 - 1.0 Equivocal >=1.1 Positive Antibody testing was performed by multiplex flow immunoassay on the BioPlex platform. Belle L Behrends GAS ENGINE MECHANIC, MARINE STRUCTURAL DESIGNER IMMUNOLOGY ORDERABL ES Final Result Performing Organization Address City/[facility] Co de Phone Number [facility] [address] [place] [address], [place] * RUBELLA IMMUNITY IGG (06/19/2025 8:20 AM CDT) RUBELLA IMMUNITY Immune Immune, Invalid 06/19/2025 4:20 PM CDT [facility] RUBELLA IGG QUANT 1.70 >=1.0 AI AI 06/19/2025 4:20 PM CDT [facility] Blood No Phlebotomy Charged / Unknown 06/19/2025 8:20 AM CDT 06/19/2025 9:22 AM CDT Narrative [facility] - 06/19/2025 4:20 PM CDT Antibody testing was performed by multiplex flow immunoassay on the R-Squaredlex platform. us Belle Dylan Behjorge GAS ENGINE MECHANIC, MARINE STRUCTURAL DESIGNER CHEMISTRY ORDERABLE S Final Result Performing Organization Address City/[facility]/ZIP Co de Phone Number [facility] [address] [place] [address], [place] * HEPATITIS B SURFACE ANTIBODY (HBSAB) (06/19/2025 8:20 AM CDT) HEPATITIS B SURFACE ANTIBODY <8.00 mIU/mL 06/19/2025 3:49 PM CDT [facility] Comment:Individual is consid ered not immune to HBV infection. Blood No Phlebotomy Charged / Unknown 06/19/2025 8:20 AM CDT 06/19/2025 9:22 AM CDT us Belle Dylan Behrends GAS ENGINE MECHANIC, MARINE STRUCTURAL DESIGNER CHEMISTRY ORDERABLE S Final Result Performing Organization Address City/[facility]/ZIP Co de Phone Number [facility] [address] [place] [address], [place] from Last 3 Months
--- OUTSIDE RECORDS SUMMARY | 2025-06-25 10:41 | XMS_ITS | Encounter Summary ---
Author Organization [facility] Address [address] [place] [address] Phone Care Team Providers Care Purchasing And Fiscal Clerk Name Role Phone Unavailable Primary Care Provider Unavailabl e Encounter Details Date Type Department Care Team (Late st Contact Info) Description 06/19/2025 Lab Requisition [facility] Laboratory Services [address] [place] [address] Belle Haley, PRODUCE DEPARTMENT SUPERVISOR, TELECOMMUNICATIONS CLERK [address] [place] [address] Social History Tobacco Use Types [...] >=1.1 AI 06/20/2025 2:28 AM CDT [facility] Blood No Phlebotomy Charged / Unknown 06/19/2025 8:20 AM CDT 06/19/2025 9:22 AM CDT Narrative [facility] - 06/20/2025 2:28 AM CDT <= 0.8 Negative. No detectable Measles IgG antibody. 0.9 - 1.0 Equivocal >=1.1 Positive Antibody testing was performed by multiplex flow immunoassay on the BioPlex platform. us Belle L Behrenoumar PRODUCE DEPARTMENT SUPERVISOR, TELECOMMUNICATIONS CLERK IMMUNOLOGY ORDERABL ES Final Result Performing Organization Address [facility] Co de Phone Number [facility] [address] [place] [address], [place] * RUBELLA IMMUNITY IGG (06/19/2025 8:20 AM CDT) Pathologist [facility] RUBELLA IMMUNITY Immune Immune, Invalid 06/19/2025 4:20 PM CDT [facility] RUBELLA IGG QUANT 1.70 >=1.0 AI AI 06/19/2025 4:20 PM CDT [facility] Blood No Phlebotomy Charged / Unknown 06/19/2025 8:20 AM CDT 06/19/2025 9:22 AM CDT Narrative [facility] - 06/19/2025 4:20 PM CDT Antibody testing was performed by multiplex flow immunoassay on the BioPlex platform. us Belle L Behrends PRODUCE DEPARTMENT SUPERVISOR, TELECOMMUNICATIONS CLERK CHEMISTRY ORDERABLE S Final Result Performing Organization Address City/[facility] Co de Phone Number [facility] [address] [place] [address], [place] * QUANTIFERON-TB GOLD PLUS (06/19/2025 8:20 AM CDT) NIL CONTROL 0.02 <8.01 IU/mL 06/22/2025 8:42 AM CDT [facility] TB ANTIGEN 1 0.02 <0.35 IU/mL 06/22/2025 8:42 AM CDT [facility] TB ANTIGEN 2 0.01 <0.35 IU/mL 06/22/2025 8:42 AM CDT [facility] MITOGEN CONTROL 9.98 >0.49 IU/mL 06/22/20 8:42 AM CDT [facility] INTEPRETATION TB NEGATIVE NEGATIVE, NEGATIVE (TB antigen response less than 25% of internal negative control value) 06/22/2025 8:42 AM CDT [facility] Comment:No immune response t o Mycobacterium tuberculosis antigens was noted. M. tuberculosis infection unlikely. Blood No Phlebotomy Charged / Unknown 06/19/2025 8:20 AM CDT 06/19/2025 9:22 AM CDT Narrative [facility] - 06/22/2025 8:42 AM CDT A [...] otherwise immunocompromised individuals. https://www.cdc.gov/tb/publications/guidelines/testing.htm Belle L Behrends PRODUCE DEPARTMENT SUPERVISOR, TELECOMMUNICATIONS CLERK IMMUNOLOGY ORDERABL ES Final Result Performing Organization Address City/[facility] Co de Phone Number [facility] [address] [place] [address], [place] * MUMPS IGG (06/19/2025 8:20 AM CDT) Mumps Ab IgG 2.2 >=1.1 AI 06/19/2025 4:20 PM CDT [facility] Blood No Phlebotomy Charged / Unknown 06/19/2025 8:20 AM CDT 06/19/2025 9:22 AM CDT Narrative [facility] - 06/19/2025 4:20 PM CDT <= 0.8 Negative. No detectable Mumps IgG antibody. 0.9 - 1.0 Equivocal >=1.1 Positive Antibody testing was performed by multiplex flow immunoassay on the Boxer platform. Belle L Behrends PRODUCE DEPARTMENT SUPERVISOR, TELECOMMUNICATIONS CLERK IMMUNOLOGY ORDERABL ES Final Result Performing Organization Address City/[facility] Co de Phone Number [facility] [address] [place] [address], [place] * HEPATITIS B SURFACE ANTIBODY (HBSAB) (06/19/2025 8:20 AM CDT) HEPATITIS B SURFACE ANTIBODY <8.00 mIU/mL 06/19/2025 3:49 PM CDT [facility] Comment:Individual is consid ered not immune to HBV infection. Blood No Phlebotomy Charged / Unknown 06/19/2025 8:20 AM CDT 06/19/2025 9:22 AM CDT us Belle Haley PRODUCE DEPARTMENT SUPERVISOR, QUOC CHEMISTRY ORDERABLE S Final Result [facility] [address] [place] [address], [place] documented in this encounter Visit Diagnoses Not on filedocumented in this encounter
--- OUTSIDE RECORDS SUMMARY | 2025-06-25 10:41 | XMS_ITS | Clinical Summary ---
Author Organization [facility] Address [address] [place] [address] Care Team Providers Care Rotary Cutter Name Role Phone Unavailable Primary Care Provider Unavailabl e Source Comments [facility],non-owned Affiliates and Associated Physician Practices is amultiple site organization consisting of ambulatory clinics and hospital sitesin [place], [place], [place] and [place]. This disclosure is being madepursuant to the Care Everywhere program and may not contain all information available regarding this patient. Last updated 18.[facility] Allergies Active Allergy Reactions Criticality Noted Date [...]
[2025-06-25 10:51] LABS: Beta HCG Quantitative 298.80 mIU/ML
== END 2025-06-25 09:31 | disposition home or self-care (01) ==
LOC: ANHLAB 09:31
PROVIDERS: Visit Provider Obstetrics & Gynecology
DX: Z34.90 Encounter for supervision of normal pregnancy, unspecified, unspecified trimester (principal); N92.6 Irregular menstruation, unspecified
CPT/HCPCS: 36415; 84144; 84702

== ENCOUNTER 2025-07-16 15:14 | Outpatient (CLI) | payer OTHER, SELFPAY ==
--- NOTE | ~2025-07-16 | US_ITS ---
PROCEDURE(S): Ultrasound OB less than or equal to 14 weeks gestation INDICATION: Dating COMPARISON(S): None. TECHNIQUE: Grayscale scanning was performed. M-mode, color Doppler, and spectral analysis. FINDINGS: There is a single live intrauterine gestation. There is a yolk sac seen. Estimated Gestational Age, (according to the first ultrasound available for this gestation): 7 weeks, 1 days. Location: Intrauterine FHR: 139 beats/minute, which is within normal limits. CLARKE: March 03, 2026 A small cystic structure in the maternal right ovary is consistent with a corpus luteum cyst. There is blood flow in both ovaries. IMPRESSION: Single live intrauterine gestation with estimated gestational age as described. No significant abnormality is seen. Reviewed, dictated and finalized at location A. TENDER IMPRESSION: Single live intrauterine gestation with estimated gestational age a s described. No significant abnormality is seen.
== END 2025-07-16 15:15 | disposition home or self-care (01) ==
LOC: GOSHIMG 15:15
PROVIDERS: PCP Student in an Organized Health Care Education/Training Program; Visit Provider Student in an Organized Health Care Education/Training Program
DX: Z34.90 Encounter for supervision of normal pregnancy, unspecified, unspecified trimester (principal); Z3A.00 Weeks of gestation of pregnancy not specified
CPT/HCPCS: 76801; 76817

== ENCOUNTER 2025-08-29 12:23 | Outpatient (CLI) | payer BC, SELFPAY ==
--- NOTE | ~2025-08-29 | US_ITS ---
EXAM/PROCEDURE: US OB limited HISTORY: JONAH- leaking COMPARISON: July 16, 2019 TECHNIQUE: Directed evaluation for viability and amniotic fluid volume FINDINGS: A single viable intrauterine gestation is present with heart rate of 155 bpm Amniotic fluid volume appears grossly normal with deepest vertical pocket 3.33 cm. EGA by dates 13 weeks 3 days EDC by dates March [id number] No sonographic dates are provided. IMPRESSION: Very limited exam demonstrating amniotic fluid volume grossly adequate with single deepest pocket measurement of 3.33 cm. Correlation with anatomic survey in 6-8 weeks recommended with directed exam sooner as clinically appropriate. Reviewed, dictated and finalized at location [facility] [employer] IMPRESSION: Very limited exam demonstrating amniotic fluid volume grossly adequ ate with single deepest pocket measurement of 3.33 cm. Correlation with anatomic survey in 6-8 weeks recommended with directed exam so reena as clinically appropriate.
--- OUTSIDE RECORDS SUMMARY | 2025-08-29 12:36 | XMS_ITS | Clinical Summary ---
Author Organization [facility] Medical Office Building B Address [address] [place] [address] Care Team Providers Care Clinical Rehabilitation Liaison Name Role Phone Unknown, Notinfile Primary Care Provider Unavail able Kasey Xiao MD Unavailable Allergies Active Allergy Reactions Criticality Noted Date Comments Erythromycin Nausea only,Shortnes s of breath,Unknown,Nausea And Vomiting High 03/28/2017 Medications valACYclovir (VALTREX) 1 gram tablet 3 Active ondansetron ODT (ZOFRAN-ODT) 4 mg disintegrating tabletIndications: Abdominal pain, epigastric Take 1 tablet (4 mg total) by mouth every 8 (eight) hours as needed for vomiting or nausea 20 tablet 5 Active metoclopramide (REGLAN) 10 mg tablet Take 1 tablet (10 mg total) by mouth daily 5 Active levothyroxine (SYNTHROID) 25 mcg tablet Take 1 tablet (25 mcg total) by mouth daily 5 Active progesterone (PROMETRIUM) 200 mg capsule TAKE 1 CAPSULE VAGINALLY EVERY DAY AT BEDTIME FOR 5 WEEKS 5 Active vit 85-woaj-lesle-dha 27mg iron- 800 mcg-250 mg capsule Take by mouth Active vitamin D3-vitamin K2 25 mcg (1,000 unit)-90 mcg tablet,disintegrat ing Take by mouth Active Hospital, Clinic, or Other Facility Administered Medication Ordered Dose Route Frequency Start Date End Date Status Rho(D) immune globulin (HyperRHO S/D, RhoGAM) injection 300 mcgIndications:Invasi ve Diagnostic or Therapeutic Procedure 300 mcg IM Once 08/20/2025 08/20/2025 Dis continued Rho(D) immune globulin (HyperRHO S/D, RhoGAM) injection 300 mcgIndications:Invasi ve Diagnostic or Therapeutic Procedure 300 mcg IM Once 08/20/2025 08/20/2025 End ed Active Problems Problem Noted Date Diagnosed Date 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 Robertson had expanded carrier screening via the iFit (600-gene panel). 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 AGG interruption analysis was performed and the expanded allele has two AGG interruptions. The haplotype is (CGG) 9 AGG (CGG) 9 AGG (CGG) 55. (54 is her longest string of uninterrupted repeats). Her normal allele has 30 CGG repeats. She has already had seen our Genetic Counselor, Michelle, and understands she has a 50% chance of passing down her affected X chromosome, and it has a 1% chance of expanding into the full mutation. After counseling on risks, capabilities, and limitations of testing, Ms. Robertson would like to proceed with [facility]. This has been scheduled on 08/20/25. [] [facility] 08/20 scheduled [] Specialized anatomy scan at 20 weeks Arcuate uterus 08/11/2025 Overview (08/14/2025): Ms. Robertson had a workup after 2 early losses and was found to have an arcuate uterus (MRI available in [facility]). She is s/p a septoplasty in April of 2025. Her ultrasound was normal today. We reviewed that uterine anomalies can be associated with miscarriage, growth restriction, . Surgical resection of a septum can decrease these risks, however, uterine surgery increases risk such as placenta accreta spectrum disorders. [] Evaluate for PAS at time of anatomy scan [] Consider 3T scan to evaluate placental location and risk for PAS Hypothyroidism affecting in second tri mester 08/11/2025 Overview (08/14/2025): Hypothyroidism was noted during her miscarriage workup; she is on synthroid 25 mcg. She is clinically euthyroid. Counseling 08/14/2025 Well controlled hypothyroidism is is generally not associated with adverse outcomes. Poorly controlled, overt hypothyroidism has been associated with a number of poor outcomes, including gestational hypertension and preeclampsia, abruption, delivery, miscarriage, low weight, cognitive impairment, and hemorrhage. individuals with hypothyroidism should maintain their TSH at < 2.5 mU/L throughout to optimize outcomes. Typically, T4 requirements will increase in , sometimes as much as 50% by the 5th gestational week. Dose adjustments should be made based on TSH level, rather than T4 or T3 levels. We recommend screening TSH every trimester, as up to 60% of patients with pre-existing hypothyroidism will require increasing their replacement dose through . Current regimen: 25 mcg Plan: [x] Maintain TSH within at < 2.5 mU/L throughout [] Repeat TSH at least once a trimester if well controlled - sent 08/14/2025 [x] T1: 08/14/2025- 2.33 [] T2: [] T3: [] Return to pre- dosing with plan to recheck at 6 weeks Other specified diseases and conditions complicating 08/11/2025 Rh negative state in antepartum period Supervision of high-risk , second trime ster 08/11/2025 Overview (08/14/2025): [] OB consult only, [x] Co-management vs. [] Full [facility] Care; [] Red Team [] Blue Team Referring Provider: Anthony Lazcano [phone] [] or Medicare Insurance [x] Dating Criteria: LMP 05/28/25 with CLARKE 03/04/26 [x] Labs: Rh [A-], Ab [negative], Rubella [immune], HIV [non-reactive], HepBSAg [non-reactive], HepBSAb [not done], HepBCAb [not done], RPR [non- reactive], Hep C [not done], Varicella [positive], GC/CT [not done] [] Aneuploidy Screening: [x] Carrier Screening: Premutation carrier for Fragile X Syndrome and Carrier for 2-Vzxlirod-Zalfbtisfazpvsxw Synthase (Ptps) Deficiency [] Hgb electrophoresis: [x] CBC/Hgb: 12.4/37.5/plt 237 [] Early 1hr GTT (if indicated): [x] UCx: 07/10/25: no growth [x] Pap: 05/16/24: NILM [] LD ASA (if indicated): [] EPDS [ ]; PNBHS referral (if indicated): 2nd Trimester [] Anatomy ultrasound: [] CBC/1hr gtt at 24-28wks: [] Rhogam at 28 wks (if Rh neg): 3rd Trimester [] CBC/HIV/RPR/T&S: [] GBS: [] GC/CT (if indicated): [] testing: Counseling [] MOD: [] instructions reviewed [] Place of delivery: [] Epidural: [] Accepts Blood Products: [] Stop ASA: [] MOC: [] Method of feeding: [] Electrifier Operator (specifically which provider): [] PP Depression Discussed: [] PP visits scheduled: Vaccines [] Flu Shot (May-Aug): [] COVID vaccine: [] Tdap (27-36wks): [] RSV vaccine (32-36wks): [] PP HPV vaccine counseling (<=26 yo): ADD (attention deficit disorder) 03/11/2025 Cervical cancer [...] 12/30/2020 Chronic pain of left elbow 03/28/2017 Estimated Date of Delivery Comme nts Yes 03/04/2026 Date entered rommel or to episode creation Encounters Date Type Department Care Team Description 08/28/2025 Telephone [facility] Obstetrics and Gynecology [address] [place] [address] Valentina Sahue 08/22/2025 Orders Only [facility] Obstetrics and Gynecology [address] [place] [address] Floor [address] [place] [phone] Michelle Andres CGC 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 and 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, antepartum, single or unspecified fetus (Primary Dx) 08/21/2025 Telephone [facility] Obstetrics and Gynecology [address] [place] [address] [address] [place] [phone] Michelle Andres CGC 08/20/2025 11:15 AM CALENDER MACHINE OPERATOR Procedure visit [facility] Obstetrics and Gynecology [address] [place] [phone] Rh negative state in antepartum period (Primary Dx); 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 and 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, antepartum, single or unspecified fetus 08/20/2025 9:47 AM CALENDER MACHINE OPERATOR - 08/20/2025 11:59 PM CALENDER MACHINE OPERATOR Hospital Encounter [facility] - Ultrasound [address] [place] [address], [address] [place] [address], [address] [place] [address] 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 and 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, antepartum, single or unspecified fetus Discharge Disposition: Discharge to home or self care 08/20/2025 9:45 AM CALENDER MACHINE OPERATOR Procedure visit [facility] Obstetrics and Gynecology [address] [place] [phone] Genetic screening (Primary Dx) 08/20/2025 Orders Only [facility] Pathology Outreach [address] [place] [address] Deidra Grey MD 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 and 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, antepartum, single or unspecified fetus 08/20/2025 Orders Only [facility] Obstetrics and Gynecology [address] [place] [address] Floor [address] [place] [phone] Michelle Andres CGC 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 and 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, antepartum, single or unspecified fetus (Primary Dx) 08/14/2025 12:15 PM CALENDER MACHINE OPERATOR Lab [facility] Outpatient Lab [address] [place] [phone] Supervision of high-risk , second trimester; Hypothyroidism affecting in second trimester 08/14/2025 11:15 AM CALENDER MACHINE OPERATOR Office Visit [facility] Medicine Maternal- Medicine [facility] [address] [facility] [address] [place] [phone] 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 (Primary Dx); Supervision of high-risk , second trimester; Hypothyroidism affecting in second trimester; Arcuate uterus 08/14/2025 10:24 AM CALENDER MACHINE OPERATOR - 08/14/2025 11:59 PM CALENDER MACHINE OPERATOR Hospital Encounter [facility] [address] [facility] [address], [place] [address] Supervision of high-risk , unspecified trimester Discharge Disposition: Discharge to home or self care 08/06/2025 2:00 PM CALENDER MACHINE OPERATOR Telemedicine [facility] Genetic Counseling [address] [facility] [address] [place] [phone] 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 and 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, antepartum, single or unspecified fetus (Primary Dx); Carrier of fragile X chromosome; Encounter for procreative genetic counseling 08/06/2025 Orders Only [facility] Medicine Obstetrics and Gynecology [address] [place] [address] 7th Floor [address] [place] [phone] Michelle Andres CGC 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 and 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, antepartum, single or unspecified fetus (Primary Dx) 07/30/2025 Telephone [facility] Medicine Obstetrics and Gynecology [address] [place] [phone] Valentina Sahu 07/22/2025 Telephone [facility] Maternal- Medicine [address] [place] [address] 7th Floor [address] [place] [phone] Alyssa Kilpatrick 07/10/2025 3:25 PM CDT Lab [address] [phone] from Last 3 Months Surgical History Surgery Date Site/Laterality Comments TONSILLECTOMY AND ADENOIDECTOMY WISDOM TOOTH EXTRACTION Medical History Medical History Date Comments [place] teeth extracted 2010 Ovarian cyst Hypothyroidism Uterine septum Family History Medical History Relation Name Comments Diabetes Father Dinana Diabetes type II Father Dink Hypertension Father Dink Stroke Father Olaf Breast cancer Mother Denise Dotson Cancer Mother Denise Dotson Relation Name Status Comments Father Olaf Alive Mother Denise Dotson Alive Social History Tobacco Use Types Packs/Day Years Used Date Smoking Tobacco: Never Passive Smoke Exposure: Never Smokeless Tobacco: Never Tobacco Cessation:Counseling Given: Not Answered Alcohol Use Standard Drinks/Week Comments Never 0 (1 standard drink = 0.6 oz pur e alcohol) AUDIT-C Answer Date Recorded Q1: How often do you have a drink containing alcohol? Never 08/14/2025 Q2: How many drinks containi ng alcohol do you have on a typical day when you are drinking? Patient does not drink Q3: How often do you have si x or more drinks on one occasion? Never 08/14/2025 Estimated Date of Delivery Comme nts Yes 03/04/2026 Date entered rommel or to episode creation Sex and Gender Information Value Date Recorded Sex Assigned at Not on file Legal Sex Female 9:08 AM CALENDER MACHINE OPERATOR Gender Identity Not on file Sexual Orientation Not on file Obstetrics History Para Term AB IAB SAB Ectopic Multiple Livin g Live Births 3 0 0 0 2 0 2 0 0 0 0 Date Outcome GA Total Labor Labor/2nd/3rd Weight Sex Type Anes PTL Grace A1 A5 Name Clin SAB SAB Current Comments 11/2024 SAB. Positive pregnan cy test only. 01/2025 SAB. Positive test only. Summary Episode Dates Number of Fetuses Estimated Date of Delivery 08/11/2025 - Present (08/29/2025) 03/04/2026 (based on Alternate CLARKE Entry) Dating Summary Based On CLARKE GA Diff Last Menstrual Period on 05/28/2025 03/04/2026 Same Ultrasound on 07/16/2025 03/03/2026 +1d GA:7w1d Alternate CLARKE Entry 03/04/2026 Working Comment:Date entered prior t o episode creation Vitals Pregravid Weight Height TWG (As of 08/29/2025) Pregrav id BMI 167.6 cm (5' 6) Date GA Fund Present FHR Mvmt BP Weight Edema Alb Glu Ket Dil/ Eff/Sta 11w1d Inpatient data not displayed here. See encounter summary. 12w0d Inpatient data not displayed here. See encounter summary. Notes Progress Notes - Procedure v isit - 08/20/2025 - GA:12w0d 08/20/2025 - w0d - Caroline Chou RMA Elizabeth presented today for her Rhogam injection after US/CVS procedure. Pt was given 1500 international units (300 mcg) Rhogam in the LG. Pt tolerated well. LOT: [id number] EXP: 12/23/2025 NDER MACHINE OPERATOR Progress Notes - Procedure v isit - 08/20/2025 - GA:12w0d 08/20/2025 - w0d - Caroline Chou RMA Elizabeth presented today for her GC blood draw. x1 tube collected with x1 stick to the right arm. Pt tolerated well. x1 tube put in basket at front office administrator for GC. NDER MACHINE OPERATOR Progress Notes - Office Visi t - 08/14/2025 - GA:11w1d 08/14/2025 - 11w1d - Candie Campos MD Maternal Medicine Consult Note Reason for Consult: Fragile X premutation carrier, arcuate uterus s/p septoplasty, hypothyroidism Requesting Provider: Anthony Lazcano MD Dear Dr. Lazcano, We had the pleasure of seeing your patient Elizabeth Campbell in our office today. As you know, she is a 30 y.o. at 11w1d here today for a consult regarding the above. Today she is doing well, she reports no complaints. Past Medical History: Diagnosis Date Hypothyroidism Ovarian cyst Uterine septum [place] teeth extracted 2010 Past Surgical History: Procedure Laterality Date TONSILLECTOMY AND ADENOIDECTOMY WISDOM TOOTH EXTRACTION Past Gynecologic History: Prior STIs: No History of abnormal pap: No Last pap smear: 2023 Patient's last menstrual period was 05/28/2025. OB History Para Term AB Living 3 0 0 0 2 0 SAB IAB Ectopic Multiple Live Births 2 0 0 0 0 # Outcome Date GA Lbr Kiet/2nd Weight Sex Type Anes PTL Lv 3 Current 2 SAB 1 SAB Obstetric Comments 11/2024 SAB. Positive test only. 01/2025 SAB. Positive test only. Current Outpatient Medications Medication Sig Dispense Refill levothyroxine (SYNTHROID) 25 mcg tablet Take 1 tablet (25 mcg total) by mouth daily metoclopramide (REGLAN) 10 mg tablet Take 1 tablet (10 mg total) by mouth daily ondansetron ODT (ZOFRAN-ODT) 4 mg disintegrating tablet Take 1 tablet (4 mg total) by mouth every 8 (eight) hours as needed for vomiting or nausea 20 tablet 0 vit 51-ttjd-awpzm-dha 27mg iron- 800 mcg-250 mg capsule Take by mouth progesterone (PROMETRIUM) 200 mg capsule TAKE 1 CAPSULE VAGINALLY EVERY DAY AT BEDTIME FOR 5 WEEKS vitamin D3-vitamin K2 25 mcg (1,000 unit)-90 mcg tablet,disintegrating Take by mouth valACYclovir (VALTREX) 1 gram tablet (Patient not taking: Reported on 08/14/2025) Family History: Family History Problem Relation Age of Onset Breast cancer Mother Cancer Mother 50 - 59 Stroke Father Diabetes type II Father Hypertension Father Diabetes Father Neural tube defects: No Down syndrome or other chromosomal anomalies: No Hemophilia, sickle cell, bleeding/clotting disorder: No Muscular dystrophy: No Cystic fibrosis: No Intellectual disability or Fragile X: Yes Uinta disease: No Other defects or genetic disorders: No Allergies Allergen Reactions Erythromycin Nausea only, Shortness of breath, Unknown and Nausea And Vomiting Social History Tobacco Use Smoking status: Never Passive exposure: Never Smokeless tobacco: Never Substance and Sexual Activity Drug use: None Sexual activity: Yes Partners: Male control/protection: OCP Alcohol Use: Not At Risk (08/14/2025) AUDIT-C Frequency of Alcohol Consumption: Never Average Number of Drinks: Patient does not drink Frequency of Binge Drinking: Never Dating: CLARKE of Estimated Date of Delivery: 03/04/26 based on LMP c/w 7 wk US Review of Systems All review of systems are negative Physical Exam Vitals BP 113/64 Pulse 81 Temp 36.6 C (97.8 F) Resp 16 Ht 167.6 cm (5' 6) Wt 146 lb (66.2 kg) LMP 05/28/2025 SpO2 100% BMI 23.57 kg/m General: Healthy, alert, active, cooperative, and in no distress The rest of the exam was deferred due to the consultative nature of this visit. Ultrasound 08/14/2025: 11w1d CRL = CLARKE Please see the separate report for full details Assessment: Ms. Elizabeth Campbell is a evelio 30 y.o. at 11w1d here today for a consult regarding: Recommendations: Problem Carrier of Fragile X Syndrome Ms. Robertson had expanded carrier screening via the iFit (600-gene panel). 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 AGG interruption analysis was performed and the expanded allele has two AGG interruptions. The haplotype is (CGG) 9 AGG (CGG) 9 AGG (CGG) 55. (54 is her longest string of uninterrupted repeats). Her normal allele has 30 CGG repeats. She has already had seen our Genetic Counselor, Michelle, and understands she has a 50% chance of passing down her affected X chromosome, and it has a 1% chance of expanding into the full mutation. After counseling on risks, capabilities, and limitations of testing, Ms. Robertson would like to proceed with [facility]. This has been scheduled on 08/20/25. [] [facility] 08/20 scheduled [] Specialized anatomy scan at 20 weeks Arcuate Uterus Ms. Robertson had a workup after 2 early losses and was found to have an arcuate uterus (MRI available in [facility]). She is s/p a septoplasty in April of 2025. Her ultrasound was normal today. We reviewed that uterine anomalies can be associated with miscarriage, growth restriction, . Surgical resection of a septum can decrease these risks, however, uterine surgery increases risk such as placenta accreta spectrum disorders. [] Evaluate for PAS at time of anatomy scan [] Consider 3T scan to evaluate placental location and risk for PAS Hypothyroidism Affecting in Second Trimester Hypothyroidism was noted during her miscarriage workup; she is on synthroid 25 mcg. She is clinically euthyroid. Counseling 08/14/2025 Well controlled hypothyroidism is is generally not associated with adverse outcomes. Poorly controlled, overt hypothyroidism has been associated with a number of poor outcomes, including gestational hypertension and preeclampsia, abruption, delivery, miscarriage, low weight, cognitive impairment, and hemorrhage. individuals with hypothyroidism should maintain their TSH at < 2.5 mU/L throughout to optimize outcomes. Typically, T4 requirements will increase in , sometimes as much as 50% by the 5th gestational week. Dose adjustments should be made based on TSH level, rather than T4 or T3 levels. We recommend screening TSH every trimester, as up to 60% of patients with pre-existing hypothyroidism will require increasing their replacement dose through . Current regimen: 25 mcg Plan: [x] Maintain TSH within at < 2.5 mU/L throughout [] Repeat TSH at least once a trimester if well controlled - sent 08/14/2025 [] T1: [] T2: [] T3: [] Return to pre- dosing with plan to recheck at 6 weeks Supervision of High-Risk , Second Trimester We are happy to co-manage her with you. We will see her back at 20 weeks for a specialized anatomy scan. We also agreed that she can discontinue her progesterone supplementation at this time (started due to her miscarriage history). Thank you for the opportunity to be involved in the care of your patient. Should you have any further questions or concerns, please do not hesitate to call us. Sincerely, Candie Campos MD, MS Senior Design Engineering Specialist Division of Maternal- Medicine Department of Obstetrics and Gynecology [facility] NDER MACHINE OPERATOR 08/14/2025 - 11w1d - Brittany Swan NDER MACHINE OPERATOR Progress Notes - Abstract - 08/11/2025 - GA:10w5d 08/11/2025 - w5d - Raiza Sandhu RMA Current OB records are under media tab. labs are in Epic. NDER MACHINE OPERATOR Last Filed Vital Signs Vital Sign Reading Time Taken Comments Blood Pressure 113/64 08/14/2025 10:50 AM CALENDER MACHINE OPERATOR Pulse 81 08/14/2025 10:50 AM CALENDER MACHINE OPERATOR Temperature 36.6 C (97.8 F) 08/14/2025 10:50 AM CALENDER MACHINE OPERATOR Respiratory Rate 16 08/14/2025 10:50 AM CALENDER MACHINE OPERATOR Oxygen Saturation 100% 08/14/2025 10:50 AM CALENDER MACHINE OPERATOR Inhaled Oxygen Concentration - - Weight 66.2 kg (146 lb) 08/14/2025 10:50 AM CALENDER MACHINE OPERATOR Height 167.6 cm (5' 6) 08/14/2025 10:50 AM CALENDER MACHINE OPERATOR Body Mass Index 23.57 08/14/2025 10:50 AM CALENDER MACHINE OPERATOR Plan of Treatment Health Maintenance Due Date Last Done Comments Depression Screening 1994 Hepatitis C Screening 1994 DTaP/Tdap/Td Vaccine (1 - Tdap) 2005 Varicella Vaccines (1 of 2 - 13+ 2-dose series) 2007 Hepatitis B Screening 2012 HPV Vaccines (1 - 3-dose SCDM series) 2021 Cervical Cancer Screening 05/01/2024 05/01/2023, Regular Well Visit/Exam 18-64 05/01/2024 05/01/2023 Covid-19 Vaccine ( - 2024- season) 2025 02/16/2021 Influenza Vaccine (#1) 2025 2, 05/27/2021, 06/02/2020, Additional history exists Pneumococcal vaccine <65 Aged Out No longer eligible based on patient's age to complete this topic Procedures Procedure Name Priority Date/Time Associated Diagnosis Comments US GUIDED CHORIONIC VILLUS SAMPLING Schedule Routine, Read Routine (OP Routine) 08/20/2025 9:47 AM CALENDER MACHINE OPERATOR 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 and 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, antepartum, single or unspecified fetus CYTOGENETICS Routine 08/20/2025 12:00 AM CALENDER MACHINE OPERATOR 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 and 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, antepartum, single or unspecified fetus THYROID FUNCTION CASCADE Routine 08/14/2025 12:18 PM CALENDER MACHINE OPERATOR Supervision of high-risk , second trimester Hypothyroidism affecting in second trimester US OB LIMITED Schedule Routine, Read Routine (OP Routine) 08/14/2025 10:24 AM CALENDER MACHINE OPERATOR Supervision of high-risk , unspecified trimester DIFFERENTIAL AUTO Routine 07/10/2025 3:4 2 PM CDT CBC WITH AUTO DIFFERENTIAL Routine 07/10/2025 3:42 PM CDT ANTIBODY SCREEN Routine 07/10/2025 3:42 PM CDT ABO/RH Routine 07/10/2025 3:42 PM CDT HCG, BLOOD, QUANTITATIVE Routine 07/10/2025 3:42 PM CDT URINE CULTURE Routine 07/10/2025 3:42 PM CDT RUBELLA IGG Routine 07/10/2025 3:42 PM CDT HIV 1/2 ANTIBODY PLUS P24 ANTIGEN Routine 07/10/2025 3:42 PM CDT HEPATITIS B SURFACE ANTIGEN Routine 07/10/2025 3:42 PM CDT CMV, IGG Routine 07/10/2025 3:42 PM CDT RPR Routine 07/10/2025 3:42 PM CDT VARICELLA ZOSTER ANTIBODY, IGG Routine 07/10/2025 3:42 PM CDT PARVOVIRUS B19 ANTIBODY, IGG AND IGM Routine 07/10/2025 3:42 PM CDT PAP WITH REFLEX TO HIGH RISK HPV Routine 05/01/2023 12:03 PM CDT Well woman exam with routine gynecological exam Special screening examination for human papillomavirus (HPV) Screening for malignant neoplasm of the cervix from Last 3 Months or Most Recently Relevant to Health Maintenance Results * Ultrasound guided chorionic villus sampling (08/20/2025 9:47 AM CALENDER MACHINE OPERATOR) Fetus# Fetus1 VIEWPOINT Placenta Details posterior VIEWPOINT Anatomical Region Laterality Modality Body Ultrasound 08/20/2025 9:47 AM CALENDER MACHINE OPERATOR Impressions 08/20/2025 11:08 AM CALENDER MACHINE OPERATOR Discussed diagnosis today as well as procedure. The risks, benefits, alternatives and limitations of chorionic villus sampling (CVS) were discussed in detail today. The risk of miscarriage after such a procedure is generally around 1:200 or 0.5%. About 20% of women will have spotting for several days after the procedure. There is also a very small risk of chromosome mosaicism which may necessitate a follow up amniocentesis. Pt consented to have CVS performed. A transcervical CVS was performed under ultrasound guidance after sterile prep. A flexible catheter was introduced through the cervix and chorionic villi were obtained for analysis. Pt tolerated the procedure well and FHT's were normal post procedure. Because CVS does not other abnormalities, such as spina bifida or other defects, I recommend a detailed ultrasound at 18-20wks. Maternal blood type is: A- and rhogam is being given post procedure. Narrative Procedure Note Deidra Grey MD - 08/20/2025 IMPRESSION: Discussed diagnosis today as well as procedure. The risks,benefits, alternatives and limitations of chorionic villus sampling (CVS)were discussed in detail today. The risk of miscarriage after such aprocedure is generally around 1:200 or 0.5%. About 20% of women will havespotting for several days after the procedure. There is also a very smallrisk of chromosome mosaicism which may necessitate a follow upamniocentesis. Pt consented to have CVS performed. A transcervical CVSwas performed under ultrasound guidance after sterile prep. A flexiblecatheter was introduced through the cervix and chorionic villi wereobtained for analysis. Pt tolerated the procedure well and FHT's werenormal post procedure. Because CVS does not other abnormalities,such as spina bifida or other defects, I recommend a detailed ultrasoundat 18-20wks. Maternal blood type is: A- and rhogam is being given post procedure. us Chau Terrazas MD [facility] US PROCEDURES Edited * Cytogenetics Amniotic fluid (08/20/2025 12:00 AM CALENDER MACHINE OPERATOR) Amniotic fluid (Miscellaneous) 08/20/2025 08/20/2025 [facility] DIAGNOSTIC LAB - CYTOGENETICS - 08/21/2025 11:44 AM CALENDER MACHINE OPERATOR PSYCHIATRIC results best viewed via link to PDF [facility] Department of Pathol [facility] [place] [address] Patient Information Name: ELIZABETH CAMPBELL Gender: F : 1995 (Age: 30) Tissue: CVS Visit Information Hospital #: [id number] Facility: [facility] Service: WUPT Location: UNKNOWN Patient Type: WUPT-EPIC Specimen Information: Culture #: [id number] Date Collected: 08/20/2025 Date Accessioned: 08/20/2025 Date Ordered: 08/20/2025 Physician(s): Deidra Grey M.D. 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 This multi-color system consists of probes ([employer] that include DXZ1 from the X chromosome centromere, DYZ3 from the Y chromosome centromere and a combination of unique sequence probes from the RB1 locus at 13q14, D18Z1 from the chromosome 18 centromere and a set of probes ([id number], B38H699, and [id number]) from 21q22.13-q22.2. This test is designed to detect the presence of the chromosomes on which these probe targets lie in interphase cells. FISH analysis of a minimum of 100 nuclei per probe for rapid detection of the copy number of chromosomes 13, 18, 21, X and Y indicates DISOMY for chromosomes 13, 18, 21 and X and nullisomy for the Y chromosome, according to performance standards established in the Clinical Genomics Laboratory at [facility]. This result is characteristic of a NORMAL number of copies of the chromosomes tested. FISH analysis does not exclude chromosomal mosaicism. No irreversible decisions about a should be made based solely upon results of FISH testing. Genetic counseling is recommended. PLEASE NOTE: MEAT CLERK analysis and abbreviated karyotype results are pending and will be reported separately. This test was developed and its performance characteristics determined by [facility]. It has not been cleared or approved by the FDA. The laboratory is regulated under CLIA as qualified to perform highcomplexity testing. This test is used for clinical purposes. It should not be regarded as investigational or for research. Chromosome analysis and Fluorescence In Situ Hybridization (FISH) analysis are performed using the [employer] Imaging System. Report Electronically Reviewed and Signed Out By Franco Phan, PhD, Diplomate of the [facility] Date Reported: 08/21/2025ssistant Professor, Division of Genomic & Molecular Pathology us Deidra Grey MD LAB GENETIC TESTING Teodora l Result [facility] DIAGNOSTIC LAB - CYTOGENETICS [address] [place] [address] * Thyroid Function Byers (08/14/2025 12:18 PM CALENDER MACHINE OPERATOR) TSH 2.33 0.30 - 4.20 mcIUnit/mL Blood 08/14/2025 12:1 8 PM CALENDER MACHINE OPERATOR 08/14/2025 12:40 PM CALENDER MACHINE OPERATOR us Candie Campos MD LAB BLOOD ORDERABLES Final Result RONALD [facility] [address] [place] [address] * US Ob Limited (08/14/2025 10:24 AM CALENDER MACHINE OPERATOR) Fetus# Fetus1 VIEWPOINT Placenta Details posterior VIEWPOINT Anatomical Region Laterality Modality Abdomen N/A Ultrasound 08/14/2025 10:2 5 AM CALENDER MACHINE OPERATOR Impressions 08/14/2025 11:24 AM CALENDER MACHINE OPERATOR 11w 1d IUP for confirmation of viability and dating 1. A single live intrauterine was seen. 2. The CRL corresponded to reported dating criteria. 3. The adnexa appeared normal bilaterally. Narrative Procedure Note Becky Maldonado MD - 08/14/2025 IMPRESSION: 11w 1d IUP for confirmation of viability and dating 1. A single live intrauterine was seen. 2. The CRL corresponded to reported dating criteria. 3. The adnexa appeared normal bilaterally. us Anthony Lazcano MD IMG OB US PROCEDURES Fin al Result * (ABNORMAL) Differential, auto (07/10/2025 3:42 PM CDT) Neutrophil abs 7.20(H) 1.50 - 6.50 K/cumm Imm gran abs 0.03 0.00 - 0.10 K/cumm [facility] Lymphocyte abs 2.86 0.80 - 3.30 K/cumm [facility] Monocyte abs 0.59 0.20 - 0.80 K/cumm [facility] Eosinophil abs 0.10 0.00 - 0.50 K/cumm [facility] Basophil abs 0.03 0.00 - 0.10 K/cumm [facility] Neutrophil pct 66.5 % [facility] Comment: Interpretive Data Percent cell count reference ranges are not reported, since discordance with absolute values may lead to misinterpretation of CBC data. Current Interpretive Data was last revised on 2017. Imm gran pct 0.3 % [facility] Comment: Interpretive Data Percent cell count reference ranges are not reported, since discordance with absolute values may lead to misinterpretation of CBC data. Current Interpretive Data was last revised on 2017. Lymphocyte pct 26.5 % [facility] Comment: Interpretive Data Percent cell count reference ranges are not reported, since discordance with absolute values may lead to misinterpretation of CBC data. Current Interpretive Data was last revised on 2017. Monocyte pct 5.5 % [facility] Comment: Interpretive Data Percent cell count reference ranges are not reported, since discordance with absolute values may lead to misinterpretation of CBC data. Current Interpretive Data was last revised on 2017. Eosinophil pct 0.9 % [facility] Comment: Interpretive Data Percent cell count reference ranges are not reported, since discordance with absolute values may lead to misinterpretation of CBC data. Current Interpretive Data was last revised on 2017. Basophil pct 0.3 % [facility] Comment: Interpretive Data Percent cell count reference ranges are not reported, since discordance with absolute values may lead to misinterpretation of CBC data. Current Interpretive Data was last revised on 2017. Blood 07/10/2025 3:42 PM CDT 07/10/2025 6:39 PM CDT Anthony Lazcano MD LAB BLOOD ORDERABLES Fin al Result Performing Organization Address [facility] de Phone Number [address] [address] * HIV 1/2 Antibody plus p24 Antigen Blood (07/10/2025 3:42 PM CDT) [facility] HIV 1/2 ab + p24 ag Nonreactive Nonreactive Comment:Nonreactive for HIV- 1 antigen and HIV-1/HIV-2 antibodies. No laboratory evidence of HIV infection. If acute HIV infection is suspected, consider testing for HIV-1 RNA. Current interpretive data was last revised on 22. Blood 07/10/2025 3:42 PM CDT 07/10/2025 6:39 PM CDT Anthony Lazcano MD LAB MICROBIOLOGY - GENER AL ORDERABLES Final Result Performing Organization Address [facility] de Phone Number [address] [place] [address] * CMV, IgG Blood (07/10/2025 3:42 PM CDT) [facility] CMV IgG Negative Negative Comment: Interpretive Data Negative - Individuals with negative CMV IgG results are presumed to not have had prior exposure or infection with CMV and are, therefore, considered susceptible to primary infection. Equivocal - Equivocal results may occur during acute infection or may be due to nonspecific binding reactions. Submit an additional sample for testing if clinically indicated. Positive - Indicates presence of detectable CMV IgG antibody. Results indicate past or recent CMV infection. Testing performed by: [facility], [address] [place]., [address] Blood 07/10/2025 3:42 PM CDT 07/10/2025 9:22 PM CDT us Anthony Lazcano MD LAB MICROBIOLOGY - [facility] ORDERABLES Final Result [facility] [address] [facility] Department [place] [address] * (ABNORMAL) CBC with auto differential (07/10/2025 3:42 PM CDT) [facility] WBC 10.81(H) 3.80 - 9.90 K/cumm Hgb 12.4 11.9 - 15.5 g/dL [facility] Hct 37.5 35.6 - 45.5 % [facility] Plt 237 150 - 400 K/cumm [facility] MPV 11.2 9.1 - 12.3 fL [facility] RBC 4.07 3.90 - 5.20 M/cumm [facility] MCV 92.1 81.3 - 96.4 fL [facility] MCH 30.5 27.1 - 33.3 pg [facility] MCHC 33.1 32.3 - 35.7 g/dL [facility] RDW CV 11.7 11.1 - 14.9 % [facility] RDW SD 39.6 35.7 - 48.1 fL [facility] NRBC abs 0.00 0.00 - 0.01 K/cumm [facility] Blood 07/10/2025 3:42 PM CDT 07/10/2025 6:39 PM CDT us Anthony Lazcano MD LAB BLOOD ORDERABLES Fin al Result Performing Organization Address [facility] Co de Phone Number RONALD [address] [address] * Parvovirus B19 antibody, IgG and IgM Blood (07/10/2025 3:42 PM CDT) Pathologist [facility] Parvovirus IgG Negative Negative [facility] Parvovirus IgM Negative Negative [facility] Parvovirus B19 Interpretation See Footnote RONALD Comment: No antibody to Parvovirus B19 detected. Acute infection cannot be ruled out as antibody levels may be below the limit of detection. If clinically indicated, a second serum should be submitted in 14-21 days. ADDITIONAL INFORMATION This test has been modified from the fountain supervisor's instructions. Its performance characteristics were determined by [facility] in a manner consistent with CLIA requirements. This test has not been cleared or approved by the U.S. Food and Drug Administration. Test Performed by: [facility] [address] [place] [address] Steel Sampler: Aissatou Hernandez Ph.D.; CLIA# [id number] Blood 07/10/2025 3:42 PM CDT 07/10/2025 6:39 PM CDT Anthony Lazcano MD LAB MICROBIOLOGY - GENER AL ORDERABLES Final Result Performing Organization Address City/[facility] Co de Phone Number AMARJIT[address] [address] [facility] * ABO/Rh (07/10/2025 3:42 PM CDT) Pathologist [facility] ABO/Rh A Negative Blood 07/10/2025 3:42 PM CDT 07/10/2025 6:37 PM CDT Anthony Lazcano MD LAB BLOOD BANK TEST ORDE RABLES Final Result AMARJ[address] [place] [address] * Rubella IgG antibody Blood (07/10/2025 3:42 PM CDT) Rubella IgG Reactive Reactive Blood 07/10/2025 3:42 PM CDT 07/10/2025 6:39 PM CDT Anthony Lazcano MD LAB MICROBIOLOGY - GENER AL ORDERABLES Final Result Performing Organization Address [facility] Co de Phone Number AM[address] [address] * RPR Blood (07/10/2025 3:42 PM CDT) RPR Nonreactive Nonreactive Comment:Testing performed by : [facility], [address] [place]., [address] Blood 07/10/2025 3:42 PM CDT 07/10/2025 9:22 PM CDT Anthony Lazcano MD LAB MICROBIOLOGY - GENER AL ORDERABLES Final Result Performing Organization Address [facility] Co de Phone Number [address] [place] [address] * Hepatitis B Surface Antigen Blood (07/10/2025 3:42 PM CDT) HepBsAg Nonreactive Nonreactive Blood 07/10/2025 3:42 PM CDT 07/10/2025 6:39 PM CDT Anthony Lazcano MD LAB MICROBIOLOGY - GENER AL ORDERABLES Final Result [address] [place] [address] * Antibody screen (07/10/2025 3:42 PM CDT) Ezequiel, indirect, Gel Interpretation Negative ABSC Blood 07/10/2025 3:42 PM CDT 07/10/2025 6:37 PM CDT Anthony Lazcano MD LAB BLOOD BANK TEST ORDE RABLES Final Result Performing Organization Address City/[facility]/ZIP Co de Phone Number [address] [place] [address] * Urine culture Urine, bladder (07/10/2025 3:42 PM CDT) Pathologist [facility] Report Final Report: No growth Comment:Testing performed by : [facility], [address] [place] [address]., [address] Urine, bladder 07/10/2025 3: 42 PM CDT 07/10/2025 9:02 PM CDT Narrative [facility] 07/12/2025 7:48 AM CDT Testing performed by [facility] Microbiology Laboratory ([phone]) Anthony Lazcano MD LAB MICROBIOLOGY - GENER AL ORDERABLES Final Result Performing Organization Address [facility] Co de Phone Number [address] [address] * Varicella Zoster IgG antibody Blood (07/10/2025 3:42 PM CDT) Pathologist [facility] VZV IgG Reactive Reactive Comment: Reactive: Results suggest response to immunization or prior exposure to the virus. Testing performed by: [facility], [address] [place] [address], [place]., [address] Blood 07/10/2025 3:42 PM CDT 07/10/2025 9:22 PM CDT Anthony Lazcano MD LAB MICROBIOLOGY - GENER AL ORDERABLES Final Result [address] [place] [address] * (ABNORMAL) hCG, blood, quantitative (07/10/2025 3:42 PM CDT) hCG, quant 42,325.0( H) 0.0 - 5.0 IUnits/L Comment: Interpretive Data Male: < 5 IU/L Non- premenopausal Female: <5 IU/L The Debbie hCG Beta Quant assay procedure was used. Results from different manufacturers or methods may not be comparable. Serial testing should be performed using the same method. Interpretive Data was last revised on 2023 Blood 07/10/2025 3:42 PM CDT 07/10/2025 6:39 PM CDT us Anthony Lazcano MD LAB BLOOD ORDERABLES Fin al Result RONALD [address] [facility] [place] [address] * Pap with reflex to High Risk HPV and Genotyping (Cytology Component) (05/01/2023 12:03 PM CDT) Thin prep (Pap test) 05/01/2023 12:03 PM CDT 05/04/2023 5:33 PM CDT Narrative PATHOLOGY [facility] - 05/10/2023 10:35 AM CDT PSYCHIATRIC results best viewed via link to PDF [address] [address] Tele: Michelle Terry MD - Cane Flume Chute Operator CYTOLOGY REPORT Note to Patients: This report [...] the details. Patient Name: ELIZABETH CHRIS Address: [address] [place], [place] [address] Gender: F : 1995 (Age: 28) Service: Location: [facility] #: [id number] Patient Type: [facility] SPECIMEN Taken: 05/01/2023 Reported: 05/10/2023 Physician(s): Kasey [...] CYTOLOGY ORDERABLES Final Result PATHOLOGY [facility] Laboratory Receiving [address] [place] [address] from Last 3 Months or Most Recently Relevant to Health Maintenance Insurance [employer] Address: [address] [place] [address] [employer] [place] [facility] [employer] [facility] [place] Care Teams Clinical Rehabilitation Liaison Relationship Specialty Start Date End Date Unknown, Notinfile PCP - General 03/24/17 Kasey Xiao MD [address] [place] [address] Consulting Physician Obstetrics and Gynecology 03/22/23
--- OUTSIDE RECORDS SUMMARY | 2025-08-29 12:36 | XMS_ITS | Clinical Summary ---
Author Organization [facility] [employer] Address [address] [place] [address] Care Team Providers Care Lease Purchase Driver Name Role Phone Unavailable Primary Care Provider Unavailabl e Source Comments [facility] [employer],non-owned Affiliates and Associated Physician Practices is amultiple site organization consisting of ambulatory clinics and hospital sitesin [place], [place], [place] and [place]. This disclosure is being madepursuant to the Care Everywhere program and may not contain all information available regarding this patient. Last updated 18.[facility] [employer] Allergies Active Allergy Reactions Criticality Noted Date Comments Erythromycin Unknown 06/04/2021 Social History Tobacco Use Types Packs/Day Years Used Date Smoking Tobacco: Never Assessed Estimated Date of Delivery Comme nts Yes 03/04/2026 Based on Ultraso und Sex and Gender Information Value Date Recorded [...] 2025 02/16/2021 INFLUENZA VACCINE (#1) 2025 , 06/02/2020, 05/27/2019, Additional history exists PAP SMEAR 05/01/2026 05/01/2023 ZOSTER VACCINE (1 of 2) 2044 HIB [...] on patient's age to complete this topic Respiratory Syncytial Virus (RSV) Vaccine Pt: or over 60 yrs (No Doses Required) Completed Insurance [facility]
--- OUTSIDE RECORDS SUMMARY | 2025-08-29 12:36 | XMS_ITS | Encounter Summary ---
Author Organization [facility] Address [address] [place] [address] Phone Care Team Providers Care Top Carrier Name Role Phone Unknown, Notinfile Primary Care Provider Unavail able Kasey Xiao MD Unavailable [phone] Encounter Details Date Type Department Care Team (Late st Contact Info) Description 08/28/[address] [facility] Medicine Obstetrics and Gynecology [address] [place] [address] Valentina Sahu Social History Tobacco Use Types Packs/Day Years Used Date Smoking Tobacco: Never Passive Smoke Exposure: Never Smokeless Tobacco: Never Alcohol Use Standard Drinks/Week Comments Never 0 [...] on file Legal Sex Female 9:08 AM UNIVERSITY INTERN Gender Identity Not on file Sexual Orientation Not on file documented as of this encounter Miscellaneous Notes * Telephone Encounter - Adelina Valentina Elliott - 08/28/2025 3:03 PM UNIVERSITY INTERN 08/28- Resched ~Patient requested [facility].cv 10/15 @ [facility] US @ 2:00 COM @ 3:00 ERSITY INTERN documented in this encounter Plan of Treatment Not on file documented as of this encounter Visit Diagnoses Not on filedocumented in this encounter Care Teams Top Carrier Relationship Specialty Start Date End Date Unknown, Notinfile PCP - General 03/24/17 Kasey Xiao MD [address] [facility] [address] [place] [address] Consulting Physician Obstetrics and Gynecology 03/22/23 documented as of this encounter
--- OUTSIDE RECORDS SUMMARY | 2025-08-29 12:36 | XMS_ITS | Clinical Summary ---
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 See individual assays for performing site location. [...] has been evaluated with computer assisted technology. HEAVY DUTY DIESEL MECHANIC: Frederick [place]ro Comment: CRESPO, CT(ASCP) CT Screening location: [facility] Administration [address] [address] [facility] Comment: [...] and current clinical information. Test Performed at: [facility] [place] [address] [address] [place] [phone] [facility] Genital SWAB OF ENDOCERVIX / Unknown 05/04/2022 1:01 PM CDT 05/04/2022 8:59 PM CDT us July Jaffe DO PATHOLOGY/CYTOLOGY ORDERABLES Fi nal Result [facility] [phone] [place] [address] [address] [place] [phone] from Last 3 Months or Most Recently [...] Type:RX Commercial Address: [address] Care Teams Veneer Jointer Offbearer Relationship Specialty Start Date End Date Elvin Reyes DO [address] [facility] [address] [place] [phone] PCP - General Internal Medicine 10/15/18
--- OUTSIDE RECORDS SUMMARY | 2025-08-29 12:36 | XMS_ITS | Encounter Summary ---
Author Organization [facility] Address [address] [place] [address] Phone Care Team Providers Care Inclusion Teacher Name Role Phone Unavailable Primary Care Provider Unavailabl e Encounter Details Date Type Department Care Team (Late st Contact Info) Description 06/19/2025 Lab Requisition [facility] Laboratory Services [address] [place] [address] Belle Haley, PRINTED CIRCUIT BOARDS CONTACT PRINTER, GANG HEAD SAW OPERATOR [address] [place] [address] Social History Tobacco Use Types [...] 1.1 >=1.1 AI 06/20/2025 2:28 AM CDT [facility] Blood No Phlebotomy Charged / Unknown 06/19/2025 8:20 AM CDT 06/19/2025 9:22 AM CDT Narrative [facility] - 06/20/2025 2:28 AM CDT <= 0.8 Negative. No detectable Measles IgG antibody. 0.9 - 1.0 Equivocal >=1.1 Positive Antibody testing was performed by multiplex flow immunoassay on the [employer] platform. us Belle Dylan Behjorge PRINTED CIRCUIT BOARDS CONTACT PRINTER, GANG HEAD SAW OPERATOR IMMUNOLOGY ORDERABL ES Final Result Performing Organization Address [facility] Co de Phone Number [facility] [address] [place] [address], [place] * RUBELLA IMMUNITY IGG (06/19/2025 8:20 AM CDT) [facility] Immune Immune, Invalid 06/19/2025 4:20 PM CDT [facility] RUBELLA IGG QUANT 1.70 >=1.0 AI AI 06/19/2025 4:20 PM CDT [facility] Blood No Phlebotomy Charged / Unknown 06/19/2025 8:20 AM CDT 06/19/2025 9:22 AM CDT Narrative [facility] - 06/19/2025 4:20 PM CDT Antibody testing was performed by multiplex flow immunoassay on the [employer] platform. us Belle L Behrends PRINTED CIRCUIT BOARDS CONTACT PRINTER, GANG HEAD SAW OPERATOR CHEMISTRY ORDERABLE S Final Result Performing Organization Address [facility] Co de Phone Number [facility] [address] [place] [address], [place] * QUANTIFERON-TB GOLD PLUS (06/19/2025 8:20 AM CDT) NIL CONTROL 0.02 <8.01 IU/mL 06/22/2025 8:42 AM CDT [facility] TB ANTIGEN 1 0.02 <0.35 IU/mL 06/22/2025 8:42 AM CDT [facility] TB ANTIGEN 2 0.01 <0.35 IU/mL 06/22/2025 8:42 AM CDT [facility] MITOGEN CONTROL 9.98 >0.49 IU/mL 06/22/20 8:42 AM CDT [facility] INTEPRETATION TB NEGATIVE NEGATIVE, NEGATIVE (TB antigen response less than 25% of internal negative control value) 06/22/2025 8:42 AM CDT [facility] Comment:No immune response t o Mycobacterium tuberculosis antigens was noted. M. tuberculosis infection unlikely. Blood No Phlebotomy Charged / Unknown 06/19/2025 8:20 AM CDT 06/19/2025 9:22 AM CDT Narrative [facility] - 06/22/2025 8:42 AM CDT A [...] otherwise immunocompromised individuals. https://www.cdc.gov/tb/publications/guidelines/testing.htm Belle L Behrends PRINTED CIRCUIT BOARDS CONTACT PRINTER, GANG HEAD SAW OPERATOR IMMUNOLOGY ORDERABL ES Final Result Performing Organization Address [facility] Co de Phone Number [facility] [address] [place] [address], [place] * MUMPS IGG (06/19/2025 8:20 AM CDT) Mumps Ab IgG 2.2 >=1.1 AI 06/19/2025 4:20 PM CDT [facility] Blood No Phlebotomy Charged / Unknown 06/19/2025 8:20 AM CDT 06/19/2025 9:22 AM CDT Narrative [facility] - 06/19/2025 4:20 PM CDT <= 0.8 Negative. No detectable Mumps IgG antibody. 0.9 - 1.0 Equivocal >=1.1 Positive Antibody testing was performed by multiplex flow immunoassay on the [facility] platform. Belle L Behrends PRINTED CIRCUIT BOARDS CONTACT PRINTER, GANG HEAD SAW OPERATOR IMMUNOLOGY ORDERABL ES Final Result Performing Organization Address [facility] Co de Phone Number [facility] [address] [place] [address], [place] * HEPATITIS B SURFACE ANTIBODY (HBSAB) (06/19/2025 8:20 AM CDT) HEPATITIS B SURFACE ANTIBODY <8.00 mIU/mL 06/19/2025 3:49 PM CDT [facility] Comment:Individual is consid ered not immune to HBV infection. Blood No Phlebotomy Charged / Unknown 06/19/2025 8:20 AM CDT 06/19/2025 9:22 AM CDT us Belle Haley PRINTED CIRCUIT BOARDS CONTACT PRINTER, QUOC CHEMISTRY ORDERABLE S Final Result [facility] [address] [place] [address], [place] documented in this encounter Visit Diagnoses Not on filedocumented in this encounter
--- OUTSIDE RECORDS SUMMARY | 2025-08-29 12:36 | XMS_ITS | Clinical Summary ---
Author Organization [facility] Address [address] [place] [address] Phone Care Team Providers Care Firewall Engineer Name Role Phone Unavailable Primary Care Provider Unavailabl e Encounters Date Type Department Care Team Description 06/19/2025 [facility] Laboratory Services [address] [place] [address] Belle Haley APRN, CNP 06/19/2025 [...] Comments Hepatitis C Virus (HCV) Screening 1994 Varicella Immunization (1 of 2 - 13+ 2-dose series) 2007 Pap Smear 2015 Cervical Cancer Screening (CCS) 2024 HPV/Cotest 2024 Influenza Immunization (#1) 05/12/202506/12, 06/30/2023, 05/20/2022, Additional history exists SARS-COV-2 Immunization (2024- season) 2025 02/16/2021 Respiratory Syncytial Virus (RSV) Immunization (Adult) (1 - 1-dose 75+ series) 2069 Hepatitis B Immunization Completed 995, 1994, 1994 TdaP Immunization Completed 02/15/2008 Human Papillomavirus (HPV) Immunization (No Doses Required) Completed Meningococcal Immunization (ACWY) Aged Out No longer [...] 0.02 <8.01 IU/mL 06/22/2025 8:42 AM CDT [facility] ANTIGEN 1 0.02 <0.35 IU/mL 06/22/2025 8:42 AM CDT [facility] TB ANTIGEN 2 0.01 <0.35 IU/mL 06/22/2025 8:42 AM CDT [facility] MITOGEN CONTROL 9.98 >0.49 IU/mL 06/22/20 8:42 AM CDT [facility] INTEPRETATION TB NEGATIVE NEGATIVE, NEGATIVE (TB antigen response less than 25% of internal negative control value) 06/22/2025 8:42 AM CDT [facility] Comment:No immune response t o Mycobacterium tuberculosis antigens was noted. M. tuberculosis infection unlikely. Blood No Phlebotomy Charged / Unknown 06/19/2025 8:20 AM CDT 06/19/2025 9:22 AM CDT Narrative [facility] - 06/22/2025 8:42 AM CDT [...] otherwise immunocompromised individuals. https://www.cdc.gov/tb/publications/guidelines/testing.htm us Belle Haley MONOGRAM OPERATOR, HIDE TRIMMER IMMUNOLOGY ORDERABL ES Final Result [facility] [address] [place] [address], * MUMPS IGG (06/19/2025 8:20 AM CDT) Mumps Ab IgG 2.2 >=1.1 AI 06/19/2025 4:20 PM CDT [facility] Blood No Phlebotomy Charged / Unknown 06/19/2025 8:20 AM CDT 06/19/2025 9:22 AM CDT Narrative [facility] - 06/19/2025 4:20 PM CDT <= 0.8 Negative. No detectable Mumps IgG antibody. 0.9 - 1.0 Equivocal >=1.1 Positive Antibody testing was performed by multiplex flow immunoassay on the [employer]lex platform. Belle L Behrends MONOGRAM OPERATOR, HIDE TRIMMER IMMUNOLOGY ORDERABL ES Final Result Performing Organization Address City/[facility] Co de Phone Number [facility] [address] [place] [address], [place] * RUBEOLA (MEASLES) IGG (06/19/2025 8:20 AM CDT) MEASLES AB IGG 1.1 >=1.1 AI 06/20/2025 2:28 AM CDT [facility] Blood No Phlebotomy Charged / Unknown 06/19/2025 8:20 AM CDT 06/19/2025 9:22 AM CDT Narrative [facility] - 06/20/2025 2:28 AM CDT <= 0.8 Negative. No detectable Measles IgG antibody. 0.9 - 1.0 Equivocal >=1.1 Positive Antibody testing was performed by multiplex flow immunoassay on the [employer] platform. Belle L Behrends MONOGRAM OPERATOR, HIDE TRIMMER IMMUNOLOGY ORDERABL ES Final Result Performing Organization Address City/[facility]/ZIP Co de Phone Number [facility] [address] [place] [address], [place] * RUBELLA IMMUNITY IGG (06/19/2025 8:20 AM CDT) [facility] Immune Immune, Invalid 06/19/2025 4:20 PM CDT [facility] RUBELLA IGG QUANT 1.70 >=1.0 AI AI 06/19/2025 4:20 PM CDT [facility] Blood No Phlebotomy Charged / Unknown 06/19/2025 8:20 AM CDT 06/19/2025 9:22 AM CDT Narrative [facility] - 06/19/2025 4:20 PM CDT Antibody testing was performed by multiplex flow immunoassay on the [employer] platform. us Belle Haley APRN, QUOC CHEMISTRY ORDERABLE S Final Result Performing Organization Address [facility] Co de Phone Number [facility] [address] [place] [address], [place] * HEPATITIS B SURFACE ANTIBODY (HBSAB) (06/19/2025 8:20 AM CDT) HEPATITIS B SURFACE ANTIBODY <8.00 mIU/mL 06/19/2025 3:49 PM CDT [facility] Comment:Individual is consid ered not immune to HBV infection. Blood No Phlebotomy Charged / Unknown 06/19/2025 8:20 AM CDT 06/19/2025 9:22 AM CDT us Belle Haley APRN, HIDE TRIMMER CHEMISTRY ORDERABLE S Final Result Performing Organization Address [facility] Co de Phone Number [facility] [address] [place] [address], [place] from Last 3 Months
--- OUTSIDE RECORDS SUMMARY | 2025-08-29 12:36 | XMS_ITS | Encounter Summary ---
Author Organization [facility] Address [address] [place] [address] Care Team Providers Care Long Winder Tender Name Role Phone AlconElvin perez Primary Care Provider [phone] Encounter Details Date Type Department Care Team (Late st Contact Info) Description 11/17/2017 Lab Requisition [facility] Laboratory Services S [facility] [address] [address] [place] [address] [facility] [address] [place] [id number] Social History Tobacco Use Types Packs/Day Years Used Date Smoking Tobacco: Never Assessed Comments Unknown Sex and Gender Information Value Date Recorded Sex Assigned at Not on file Legal Sex Female 1:19 PM BUS 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 Gender Identity Not on file Sexual Orientation Not on file documented as of this encounter Plan of Treatment Not on file documented as of this encounter Procedures Procedure Name Priority Date/Time Associated Diagnosis Comments HEPATITIS B SURFACE AB, QUANT Routine 11/17/2017 1:30 PM BUS STARTER VARICELLA ZOSTER IGG Routine 11/17/2017 1:30 PM BUS STARTER documented in this encounter Results * (ABNORMAL) HEPATITIS B SURFACE AB, QUANT (11/17/2017 1:30 PM BUS STARTER) HEPATITIS B SURF AB,QN <4.0 mlU/mL 11/17/2017 9:55 PM BUS STARTER [facility] [employer] [facility] HEPATITIS B SURFACE AB INTERP Non-reacti ve(A) See Interp 11/17/2017 9:55 PM BUS STARTER [facility] Blood Collection / Unknown 11/17/2017 1:30 PM BUS STARTER 11/17/2017 8:26 PM BUS STARTER Narrative [facility] - 11/17/2017 9:55 PM BUS STARTER Patient does not have immunity to Hepatitis B virus. This assay is used to determine immune status to Hepatitis B as greater than or equal to 10 mIU/mL as per CDC guidelines (MMWR:vol 55: RR-16, 2006). Jun Gloria MD CHEMISTRY ORDERABLES Final R esult [facility] CLIA# [id number] [address] [place] [address] * VARICELLA ZOSTER IGG (11/17/2017 1:30 PM BUS STARTER) VZV IGG Positive 11/21/2017 2:35 PM CDT [facility] Comment: Results suggest response to immunization or prior exposure to the virus. REFERENCE VALUE Vaccinated: Positive (>=1.1 AI) Unvaccinated: Negative (<=0.8 AI) VARICELLA IGG INDEX 2.4 11/21/2017 2:35 PM CDT [facility] Comment: Test Performed by: [facility] [address] [place] [address] Blood Collection / Unknown 11/17/2017 1:30 PM BUS STARTER 11/17/2017 8:26 PM BUS STARTER Jun Gloria MD CHEMISTRY ORDERABLES Final R esult [facility] documented in this encounter Visit Diagnoses Not on filedocumented in this encounter Care Teams Long Winder Tender Relationship Specialty Start Date End Date Elvin Reyes DO [address] [place] [address] [place] [phone] PCP - General Internal Medicine 10/15/18 documented as of this encounter
[2025-08-29 13:22] LABS: OBXCEM ROM Plus Negative (Negative)
--- NOTE | 2025-08-29 13:50 | PM.OBTRLD ---
OB - Triage/Final Diagnosis Visit Information Date of evaluation: 08/29/25 Reason for evaluation: other (leakage of fluid) Comments/Additional reasons for admission: I have assessed the risk for this patient, Elizabeth Navarro, and determined that she would benefit from observation care. Evaluation Laboratory results: Laboratory Tests 08/29/25 13:19 Membranes Rupture Rom plus negative
== END 2025-08-29 13:56 | disposition home or self-care (01) ==
LOC: ANHOBOP 12:34 → ANHOBPP 13:55
PROVIDERS: Visit Provider Student in an Organized Health Care Education/Training Program
DX: O42.912 Preterm premature rupture of membranes, unspecified as to length of time between rupture and onset of labor, second trimester (principal); Z3A.15 15 weeks gestation of pregnancy
CPT/HCPCS: 76815; 84112; 99199